=== PATIENT | female | born 1975 | race Caucasian/White ===

== ENCOUNTER 2017-07-19 15:19 | Observation (INO) ==
[2017-07-19] MEDS ORDERED: Naloxone 0.4 MG/ML INJ IVP PRN (20:12)
[2017-07-19] MEDS ORDERED: Acetaminophen 325 MG TABLET PO PRN (20:12)
[2017-07-19] MEDS ORDERED: Fluticasone Propionate Nasal 50 MCG/SPRAY BOTTLE NS PRN (20:18)
[2017-07-19] MEDS ORDERED: Loratadine 10 MG TABLET PO PRN (20:18)
--- NOTE | 2017-07-19 20:28 | Internal Med History&Physical ---
Date of Encounter: 07/19/17 Time of Encounter: 19:45 Internal Medicine - H&P: HPI Chief complaint: syncope; acute renal failure Admitted From: Hospital to Hospital Transfer Plans for Post Hospital Care: Home History of present illness: Ms. Curiel is a 42 year old female who presents in transfer from [facility] ER after having sustained a syncopal event while at [facility] today. She was found to have evidence of acute renal failure and UTI. Given her presentation and acute renal failure, she was transferred to [facility] for ongoing care. Upon my assessment of the patient, she is lying in bed comfortably. She states that she was feeling weak and lightheaded and dizzy this morning in [facility]. She decided to leave [facility]aptism early given her symptoms, but when she stood up from the pew/chair she became lightheaded and dizzy and passed out and was unconscious for a few seconds on the [facility] floor. She was brought to the ER and was noted to be hypotensive with a blood pressure of 98/61. She states she was feeling diaphoretic, weak, dizzy, and clammy. She had been having a GI virus earlier in the week with protracted nausea and vomiting and very little oral intake. She denies any diarrhea. She also suffers from chronic hypertension and has had some blood pressure medication changes recently. Her baseline creatinine is normal but it is now 2.71. She also had evidence of UTI and her urine sample. She denied any dysuria, hematuria, or urinary urgency or frequency, however. Nonetheless, she will be treated for UTI and for acute renal failure. She feels well now, but she still feels quite weak. She has no nausea or vomiting at the present time. She denies any fevers, chills, or night sweats. She also tells me she suffers from essential thrombocytosis and takes hydroxyurea and aspirin for her platelet excess. She has never suffered any kind of stroke, heart attack, or any end organ damage from her thrombocytosis. Past Med Surg Social Fam HX - Past Medical History Attestation: Yes The following information was validated with the patient. Source: patient, old records reviewed Medical history: GERD, hypertension, thyroid disease, other (essential thrombocytosis) Psychiatric history: depression - Past Surgical History Surgical History: appendectomy, thyroidectomy (partial) - Social History Smoking Status: Never smoker Smokeless Tobacco Status: No Alcohol use: rarely Drug use: none Current living situation: Home, With Family Activity Level: Independent ambulation Recent Out of Country Travel Within the Last 8 Weeks: No - Family History Mother Adopted: No Family Member Ethnicity: Non- Living Status: Still Living Hx Family Cardiac Disorders: Yes (htn) Hx Family Neurologic Disorders: Yes (TIA) Father Living Status: Still Living Hx Family Cardiac Disorders: Yes (htn, cva) Hx Family Neuromuscular Disorders: Yes (TIA) Internal Medicine - H&P: Meds Aspirin [Lo-Dose Aspirin EC] 81 mg PO DAILY 07/19/17 [History] Carvedilol [Coreg] 25 mg PO BID 07/19/17 [History] Cetirizine HCl [All Day Allergy] 10 mg PO DAILY PRN 07/19/17 [History] Fluticasone Propionate Nasal [Flonase] 2 spr NS DAILY PRN 07/19/17 [History] Hydralazine HCl 100 mg PO TID 07/19/17 [History] Hydroxyurea [Hydrea] 500 mg PO DAILY 07/19/17 [History] Lisinopril/Hydrochlorothiazide [Zestoretic 20-12.5 mg Tablet] 1 tab PO BID 07/19 [History] Omeprazole [PriLOSEC] 20 mg PO DAILY 07/19/17 [History] cloNIDine HCl [Clonidine HCl] 0.1 mg PO TID 07/19/17 [History] 3 Allergy/AdvReac Type Severity Reaction Status Date / Time No Known Allergies Allergy Verified 07/19/17 17:19 - Constitutional Constitutional: no chills, no fever(s), no night sweats - EENT Eyes: no blurry vision, no change in vision Ears: no ear pain, no tinnitus Nose, mouth and throat: no nasal congestion, no sinus pressure, no sore throat - Cardiovascular Cardiovascular ROS IM: diaphoresis, lightheadedness, syncope, no chest pain, no dyspnea, no dyspnea on exertion, no irregular heart rhythm, no palpitations, no paroxysmal nocturnal dyspnea - Respiratory Respiratory: no cough, no dyspnea, no hemoptysis, no dyspnea on exertion, no chest congestion, no excessive phlegm production, no change in phlegm color - Gastrointestinal Gastrointestinal: nausea, vomiting, no abdominal pain, no diarrhea, no hematemesis, no hematochezia, no melena - Genitourinary Genitourinary: no dysuria, no flank pain, no hematuria - Musculoskeletal Musculoskeletal ROS IM: no arthralgias, no back pain - Integumentary Integumentary IM: no rash, no jaundice - Neurological Neurological ROS: dizziness, no convulsions, no focal weakness, no frequent falls, no headache(s), no vertigo, no weakness - Psychiatric Psychiatric: no anxiety, no depression - Endocrine Endocrine IM: no polydipsia, no polyuria - Hematologic/Lymphatic Hematologic/Lymphatic: no easy bruising, no lymphadenopathy - Allergic/Immunologic Allergic/Immunologic: no wheezing, no GI upset with certain foods - Constitutional Vitals: Temp Pulse Resp BP Pulse Ox 98.1 F 81 16 143/82 100 07/19/17 17:04 07/19/17 17:04 07/19/17 17:04 07/19/17 17:04 07/19/17 17:08 General appearance: Present: cooperative, A&O X 3, pleasant, no acute distress, answers questions appropriately - Head Head exam: Present: atraumatic, normal inspection - Eye Eye exam: Present: EOMI, normal appearance, PERRL. Absent: scleral icterus Pupils: Present: normal accommodation - ENT ENT exam: Present: mucous membranes dry, normal exam, normal oropharynx - Neck Neck exam general surgery: Present: full ROM, supple. Absent: lymphadenopathy, tenderness, nuchal rigidity, thyromegaly - Respiratory Respiratory exam: Present: CTAB. Absent: chest wall tenderness, rales, respiratory distress, rhonchi, wheezes - Cardiovascular Cardiovascular exam: Present: RRR, +S1, +S2. Absent: diastolic murmur, systolic murmur - GI/Abdominal GI/Abdominal exam: Present: normal bowel sounds, soft. Absent: guarding, hepatomegaly, rebound, splenomegaly, tenderness - Extremities Exam Extremities exam: Present: normal capillary refill, warm, radial pulses palpable and symmetrical. Absent: calf tenderness, pedal edema, tenderness - Back Exam Back exam: Present: normal inspection. Absent: CVA tenderness (L), CVA tenderness (R) - Neurological Exam Neurological exam: Present: alert, CN II-XII intact, oriented X3, no focal deficits, strengths equal and symetr throughout - Psychiatric Psychiatric exam: Present: normal affect, normal mood - Skin Skin exam: Present: dry, warm. Absent: rash Internal Med - H&P Results - Labs Labs: I reviewed the records from [facility] and include the following: WBC 12.4 Hemoglobin 11.1 HCT 11.1 Platelets 692 Sodium 136 Potassium 4.3 Chloride 105 Carbon dioxide 22 BUN 56 Creatinine 2.71 Glucose 115 Troponin less than 0.03 Urinalysis suggestive of UTI EKG: I am unable to find one and unsure if one was even done. - Diagnostic Studies Chest x-ray Status: image reviewed by me (negative) CT scan - head Additional comments: Report reviewed -- negative - Assessment and plan (1) Syncope Current Visit: Yes Status: Acute Assessment and plan: 1. Suspect volume depletion (gastroenteritis) and medication (BP med changes recently) as etiology. 2. Will hold BP meds and use PRN as needed. 3. Hydrate with IVF. 4. Will order EKG, ECHO, and Carotid Dopplers. 5. Monitor on telemetry. Qualifiers: Syncope type: unspecified Qualified Code(s): R55 - Syncope and collapse (2) Acute kidney failure Current Visit: Yes Status: Acute Assessment and plan: 1. Hold BP meds. 2. IVF hydration. 3. Renal ultrasound. 4. Consult nephrology -- discussed with Dr. Barnes. 5. Monitor I/O and renal function. Qualifiers: Acute renal failure type: unspecified Qualified Code(s): N17.9 - Acute kidney failure, unspecified (3) Thrombocytosis Current Visit: Yes Status: Chronic Assessment and plan: 1. Continue Hydrea and ASA per home dosing. 2. Monitor platelets. (4) UTI (urinary tract infection) Current Visit: Yes Status: Acute Assessment and plan: 1. Will treat with IV Rocephin. 2. Follow urine culture obtained at [facility]. Qualifiers: Urinary tract infection type: acute cystitis Hematuria presence: without hematuria Qualified Code(s): N30.00 - Acute cystitis without hematuria (5) DVT prophylaxis Current Visit: No Status: Acute Assessment and plan: 1. Heparin SQ.
[2017-07-19] MEDS: cefTRIAXone 1,000 MG in Water for inj. (sterile) 20 ML 10 ML IVP SCH (23:14)
[2017-07-19] MEDS: *HR* Heparin 5,000 UNIT/ML VIAL SQ SCH (23:15)
[2017-07-19] MEDS: 0.9 % Sodium Chloride 1,000 ML IVC SCH (23:16)
[2017-07-20 03:21] LABS: Basophils % 0.5 %; Eosinophils % 1.7 %; Hematocrit 30.6 % (35.3-44.9); Hemoglobin 10.1 g/dL (11.5-15.4); Immature Granulocytes % 0.1 % (0-4); Mean Corpuscular Volume 96.8 fL (83.0-100.0); Mean Platelet Volume 10.2 fL (9.4-12.4); Monocytes % 7.5 %; Platelet Count 556 K/mcL (140-400); Red Blood Count 3.16 M/mcL (3.82-4.97); Red Cell Distribution Width 15.9 % (11.5-14.5); Segmented Neutrophils % 60.2 %
[2017-07-20 03:22] LABS: Eosinophils # 0.1 K/mcL (0.0-0.6); Lymphocytes # 2.2 K/mcL (0.6-4.6); Monocytes # 0.6 K/mcL (0.0-1.3); Neutrophils # 4.5 K/mcL (1.6-8.9)
[2017-07-20 03:24] LABS: INR 1.1; Prothrombin Time 11.5 Seconds (9.4-12.1)
[2017-07-20 03:27] LABS: Activated Partial Thrombo Time 30.5 Seconds (26.0-36.0)
[2017-07-20 03:42] LABS: Albumin 3.7 g/dL (3.5-5.7); Albumin/Globulin Ratio 1.3 (1.1-2.2); Bilirubin,Total 0.3 mg/dL (0.3-1.0); Calcium 8.6 mg/dL (8.6-10.3); Chol/HDL Ratio 6.5 (0-4.9); Globulin 2.8 g/dL (2.4-3.5); Potassium 3.9 mEq/L (3.5-5.1); Total Protein 6.5 g/dL (6.4-8.9)
[2017-07-20] MEDS: *HR* Heparin 5,000 UNIT/ML VIAL SQ SCH ×3 (05:26→21:44)
--- NOTE | 2017-07-20 07:34 | Internal Med Progress Note ---
Date of Encounter: 07/20/17 Time of Encounter: 07:30 - Assessment and plan (1) Syncope Current Visit: Yes Status: Acute Assessment and plan: Likely 2/2 to dehydration and polypharmacy. Hold BP meds.Give IV fluids. F/U 2D echo and carotid dopplers Qualifiers: Syncope type: unspecified Qualified Code(s): R55 - Syncope and collapse (2) DVT prophylaxis Current Visit: No Status: Acute Assessment and plan: 1. Heparin SQ. (3) Thrombocytosis Current Visit: Yes Status: Chronic Assessment and plan: 1. Continue Hydrea and ASA per home dosing. 2. Monitor platelets. (4) Acute kidney failure Current Visit: Yes Status: Acute Assessment and plan: Continue IV fluid hydration. f/U renal ultrasound. Nephrology recs appreciated Qualifiers: Acute renal failure type: unspecified Qualified Code(s): N17.9 - Acute kidney failure, unspecified (5) UTI (urinary tract infection) Current Visit: Yes Status: Acute Assessment and plan: 1. Will treat with IV Rocephin. 2. Follow urine culture obtained at [facility]. Qualifiers: Urinary tract infection type: acute cystitis Hematuria presence: without hematuria Qualified Code(s): N30.00 - Acute cystitis without hematuria - Time Spent With Patient Total time spent is greater than 50% in coordination of care (as documented) at patient's floor/unit and/or counseling patient: - Subjective Interval history: No acute events overnight - Constitutional Vitals: Temp Pulse Resp BP Pulse Ox 98.4 F 77 16 129/85 100 07/20/17 06:59 07/20/17 06:59 07/20/17 06:59 07/20/17 06:59 07/20/17 06:59 General appearance: Present: cooperative, A&O X 3, pleasant, no acute distress, answers questions appropriately - Head Head exam: Present: atraumatic, normocephalic - Eye Eye exam: Present: PERRL, conjuntiva pink, sclera anicteric Pupils: Present: PERRL - Neck Neck exam general surgery: Present: supple, trachea midline. Absent: lymphadenopathy - Respiratory Respiratory exam: Present: CTAB. Absent: accessory muscle use, rales, rhonchi, wheezes - Cardiovascular Cardiovascular exam: Present: RRR, +S1, +S2. Absent: diastolic murmur, gallop, rubs, systolic murmur - GI/Abdominal GI/Abdominal exam: Present: normal bowel sounds, soft, no peritoneal signs. Absent: distended, tenderness - Extremities Exam Extremities exam: Present: warm, radial pulses palpable and symmetrical. Absent : calf tenderness, cyanotic, pedal edema - Neurological Exam Neurological exam: Present: CN II-XII intact, oriented X3, no focal deficits. Absent: pronater drift, facial droop, speech deficit - Skin Skin exam: Present: dry, intact Internal Medicine: Result - Labs CBC & Chem 7: 07/20/17 03:05 07/20/17 03:05 Labs: Short CBC 07/20/17 Range/Units 03:05 WBC 7.5 (4.3-11.1) K/mcL Hgb 10.1 L (11.5-15.4) g/dL Hct 30.6 L (35.3-44.9) % Plt Count 556 H (140-400) K/mcL Neutrophils # 4.5 (1.6-8.9) K/mcL BMP 07/20/17 03:05 Sodium 138 Potassium 3.9 Chloride 110 H Carbon Dioxide 22 L BUN 34 H Creatinine 1.65 H Glucose 128 H Calcium 8.6 Liver Function 07/20/17 Range/Units 03:05 Total Bilirubin 0.3 (0.3-1.0) mg/dL AST 11 L (13-39) Units/L ALT 11 (7-52) Units/L Alkaline Phosphatase 40 (34-104) Units/L Albumin 3.7 (3.5-5.7) g/dL - ABG Interpretation ABG results: PT/INR, D-dimer PT 11.5 Seconds (9.4-12.1) 07/20/17 03:05 Consult Discharge Plan - Plan Referrals: Cinthya Deleon, ATMOSPHERIC SCIENCES PROFESSOR [Primary Care Provider] -
[2017-07-20] MEDS: 0.9 % Sodium Chloride 1,000 ML IVC SCH (07:37)
[2017-07-20] MEDS: Aspirin Enteric Coated 81 MG Tablet PO SCH (07:38)
[2017-07-20] MEDS: Hydroxyurea 500 MG CAPSULE PO SCH (07:38)
[2017-07-20] MEDS: cefTRIAXone 1,000 MG in Water for inj. (sterile) 20 ML 10 ML IVP SCH (07:39)
--- NOTE | 2017-07-20 11:21 | Nephrology Consult Note ---
Date of Encounter: 07/20/17 Time of Encounter: 11:19 Assessment and Plan (1) Acute kidney failure Current Visit: Yes Status: Acute Patient with LALI that is secondary to hypotension from dehydration and possible overcontrol of her blood pressure. Her renal function is significantly improved with holding antihypertensive medications and hydration. I anticipate recovery of her renal function. Ok to resume some of her antihypertensive medications as her SBP is greater than 150. Avoid other nephrotoxins. If patient is discharged please get a renal function panel in 5-7 days. Patient needs to follow-up with Dr. Broussard as previously scheduled or per the direction of primary care. Qualifiers: Acute renal failure type: unspecified Qualified Code(s): N17.9 - Acute kidney failure, unspecified (2) Syncope Current Visit: Yes Status: Acute Secondary to volume depletion that occurred at the same time her antihypertensive medication was adjusted. Qualifiers: Syncope type: unspecified Qualified Code(s): R55 - Syncope and collapse (3) UTI (urinary tract infection) Current Visit: Yes Status: Acute Antibiotics per primary team. Qualifiers: Urinary tract infection type: acute cystitis Hematuria presence: without hematuria Qualified Code(s): N30.00 - Acute cystitis without hematuria (4) Thrombocytosis Current Visit: Yes Status: Chronic Outpatient management. History of Present Illness - Reason for Consult Consult date: 07/20/17 Acute Kidney Injury - Chief Complaint lali - History of Present Illness Ms. Curiel is a 42 yo woman with a history of hypertension who presents after a syncopal episode and was found to have acute kidney injury. The patient is followed by Dr. Broussard with [facility]. The patient reports that she has been in her usual state of health with the exception of about 1 week history of decreased oral intake along with nausea, but no diarrhea. She recently had her antihypertensive regimen adjusted secondary to elevated blood pressures. The patient [facility] and [facility] she noticed that she was lightheaded and dizzy. She also experienced some weakness while she was there. Upon attempting to stand she blacked out and the next thing she remembers was coming to on the floor with a lot of people around her. In the hospital she was found to have acute kidney injury and so [facility] was consulted to assist with evaluation and management. At the time my evaluation the patient is feeling better, she denies chest pain, shortness of breath, dizziness, or any other problems. Past Med Surg Social Fam HX - Past Medical History Medical history: GERD, hypertension, thyroid disease, other (essential thrombocytosis) Psychiatric history: depression - Past Surgical History Surgical History: appendectomy, thyroidectomy (partial) - Social History Smoking Status: Never smoker Smokeless Tobacco Status: No Alcohol use: rarely Drug use: none - Family History Mother Adopted: No Family Member Ethnicity: Non- Living Status: Still Living Hx Family Cardiac Disorders: Yes (htn) Hx Family Neurologic Disorders: Yes (TIA) Father Living Status: Still Living Hx Family Cardiac Disorders: Yes (htn, cva) Hx Family Neuromuscular Disorders: Yes (TIA) Medications and Allergies Aspirin [Lo-Dose Aspirin EC] 81 mg PO DAILY 07/19/17 [History] Carvedilol [Coreg] 25 mg PO BID 07/19/17 [History] Cetirizine HCl [All Day Allergy] 10 mg PO DAILY PRN 07/19/17 [History] Fluticasone Propionate Nasal [Flonase] 2 spr NS DAILY PRN 07/19/17 [History] Hydralazine HCl 100 mg PO TID 07/19/17 [History] Hydroxyurea [Hydrea] 500 mg PO DAILY 07/19/17 [History] Lisinopril/Hydrochlorothiazide [Zestoretic 20-12.5 mg Tablet] 1 tab PO BID 07/19 [History] Omeprazole [PriLOSEC] 20 mg PO DAILY 07/19/17 [History] cloNIDine HCl [Clonidine HCl] 0.1 mg PO TID 07/19/17 [History] 3 Allergy/AdvReac Type Severity Reaction Status Date / Time No Known Allergies Allergy Verified 07/19/17 17:19 Review of Systems All Systems: reviewed and no additional remarkable complaints except as stated ( As documented in the history of present illness.) Exam - Vital Signs Vital signs: Initial Vital Signs Temp Pulse Resp BP Pulse Ox 98.1 F 81 16 143/82 100 07/19/17 17:04 07/19/17 17:04 07/19/17 17:04 07/19/17 17:04 07/19/17 17:04 Vital Signs - Last 8 Hours Temp Pulse Resp BP Pulse Ox 07/20/17 10:36 98.0 F 74 16 161/106 99 07/20/17 07:49 100 05/14/18 06:59 98.4 F 77 16 129/85 100 07/20/17 05:04 98.1 F 77 17 136/93 100 Intake and Output 07/19/17 07/20/17 07/20/17 23:59 07:59 15:59 Intake Total 950 / 950 120 / 120 Balance 950 / 950 120 / 120 Intake: IV Fluids 950 / 950 0.9 % Sodium Chloride 1,000 ML 950 / 950 @ 125 mls/hr IVC .Q8H EDMUND Rx#: [id number] Rocephin 1,000 MG In Water for inj. (sterile) 10 ML @ 600 mls/ hr IVP DAILY EDMUND Rx#:[id number] Oral 120 / 120 Other: Meal turkey sandwich with higuera and mustard, chocolate ice cream, sprite venita lemon [place] Breakfast Percent of Meal Consumed 80% # Voids 0 1 # Bowel Movements 0 Weight 86 kg 86.1 kg Patient Weight 07/20/17 23:59 Weight 86.1 kg - General Appearance General appearance: well-developed, well-nourished, obese EENT: ATNC Neck: supple Respiratory: clear Cardiology: no edema, regular rate, regular rhythm Gastrointestinal: no tenderness Integumentary: warm and dry Neurologic: alert and oriented x3 Musculoskeletal: no cyanosis Psychiatric: mood/affect appropriate Results - Lab Results 07/20/17 03:05 07/20/17 03:05 Most recent lab results Calcium 8.6 mg/dL (8.6-10.3) 07/20/17 03:05 Magnesium 2.0 mg/dL (1.6-2.6) 07/20/17 03:05 Consult Discharge Plan - Plan Referrals: Cinthya Deleon, QUALITY PROCESS ENGINEER [Primary Care Provider] -
[2017-07-20] MEDS: Lisinopril-HCTZ 20-12.5mg TABLET PO SCH ×2 (11:43→20:09)
[2017-07-20] MEDS: Ondansetron ODT 4 MG TAB.RAPDIS SL PRN (13:11)
[2017-07-20 14:24] LABS: Protein/Creatinine Ratio,Urine 0.67 mg/mg (0.00-0.20)
[2017-07-21] MEDS: Ondansetron ODT 4 MG TAB.RAPDIS SL PRN ×2 (04:29→15:36)
[2017-07-21 04:58] LABS: Basophils # 0.1 K/mcL (0.0-0.2); Basophils % 0.6 %; Eosinophils # 0.1 K/mcL (0.0-0.6); Eosinophils % 1.4 %; Hematocrit 35.8 % (35.3-44.9); Immature Granulocytes % 0.3 % (0-4); Lymphocytes # 2.6 K/mcL (0.6-4.6); Lymphocytes % 33.4 %; Mean Corpuscular HGB Conc 33.5 g/dL (31.6-35.5); Mean Corpuscular Hemoglobin 31.7 pg (28.0-33.3); Mean Corpuscular Volume 94.7 fL (83.0-100.0); Mean Platelet Volume 10.2 fL (9.4-12.4); Monocytes # 0.5 K/mcL (0.0-1.3); Monocytes % 6.2 %; Neutrophils # 4.5 K/mcL (1.6-8.9); Nucleated Red Blood Cells 0.3 /100 WBC (0); Platelet Count 668 K/mcL (140-400); Red Blood Count 3.78 M/mcL (3.82-4.97); Red Cell Distribution Width 15.3 % (11.5-14.5); Segmented Neutrophils % 58.1 %
[2017-07-21 05:19] LABS: Calcium 9.4 mg/dL (8.6-10.3); Potassium 3.8 mEq/L (3.5-5.1)
[2017-07-21] MEDS: *HR* Heparin 5,000 UNIT/ML VIAL SQ SCH ×2 (05:30→14:12)
[2017-07-21] MEDS: Hydroxyurea 500 MG CAPSULE PO SCH (07:53)
[2017-07-21] MEDS: cefTRIAXone 1,000 MG in Water for inj. (sterile) 20 ML 10 ML IVP SCH (07:54)
[2017-07-21] MEDS: Lisinopril-HCTZ 20-12.5mg TABLET PO SCH (07:54)
[2017-07-21] MEDS: Aspirin Enteric Coated 81 MG Tablet PO SCH (07:54)
[2017-07-21] MEDS ORDERED: amLODIPine 5 MG TABLET PO SCH (09:30)
--- NOTE | 2017-07-21 09:43 | Internal Med Progress Note ---
Date of Encounter: 07/21/17 Time of Encounter: 09:40 - Assessment and plan (1) HTN (hypertension) Current Visit: No Status: Chronic Assessment and plan: Was on lisinopril/HCTZ, coreg and clonidine at home. Have restarted lisinopril ad HCTZ. want to avoid clonidine so will start amlodipine. Will hold off on coreg at this time Qualifiers: Hypertension type: essential hypertension Qualified Code(s): I10 - Essential (primary) hypertension (2) Syncope Current Visit: Yes Status: Acute Assessment and plan: Likely 2/2 to dehydration and polypharmacy. Hold BP meds.Give IV fluids. Echo came back with mild diastolic dysfunction, otherwise WNL Qualifiers: Syncope type: unspecified Qualified Code(s): R55 - Syncope and collapse (3) DVT prophylaxis Current Visit: No Status: Acute Assessment and plan: 1. Heparin SQ. (4) Thrombocytosis Current Visit: Yes Status: Chronic Assessment and plan: 1. Continue Hydrea and ASA per home dosing. 2. Monitor platelets. (5) Acute kidney failure Current Visit: Yes Status: Acute Assessment and plan: Continue IV fluid hydration. f/U renal ultrasound. Nephrology recs appreciated Qualifiers: Acute renal failure type: unspecified Qualified Code(s): N17.9 - Acute kidney failure, unspecified (6) UTI (urinary tract infection) Current Visit: Yes Status: Acute Assessment and plan: 1. Will treat with IV Rocephin. 2. Follow urine culture obtained at [facility]. Qualifiers: Urinary tract infection type: acute cystitis Hematuria presence: without hematuria Qualified Code(s): N30.00 - Acute cystitis without hematuria - Time Spent With Patient Total time spent is greater than 50% in coordination of care (as documented) at patient's floor/unit and/or counseling patient: - Subjective Interval history: No acute events overnight - Constitutional Vitals: Temp Pulse Resp BP Pulse Ox 99.0 F 85 18 145/104 99 07/21/17 07:14 07/21/17 07:14 07/21/17 07:14 07/21/17 07:14 07/21/17 07:14 General appearance: Present: cooperative, A&O X 3, pleasant, no acute distress, answers questions appropriately - Head Head exam: Present: atraumatic, normocephalic - Eye Eye exam: Present: PERRL, conjuntiva pink, sclera anicteric Pupils: Present: PERRL - Neck Neck exam general surgery: Present: supple, trachea midline. Absent: lymphadenopathy - Respiratory Respiratory exam: Present: CTAB. Absent: accessory muscle use, rales, rhonchi, wheezes - Cardiovascular Cardiovascular exam: Present: RRR, +S1, +S2. Absent: diastolic murmur, gallop, rubs, systolic murmur - GI/Abdominal GI/Abdominal exam: Present: normal bowel sounds, soft, no peritoneal signs. Absent: distended, tenderness - Extremities Exam Extremities exam: Present: warm, radial pulses palpable and symmetrical. Absent : calf tenderness, cyanotic, pedal edema - Neurological Exam Neurological exam: Present: CN II-XII intact, oriented X3, no focal deficits. Absent: pronater drift, facial droop, speech deficit - Skin Skin exam: Present: dry, intact Internal Medicine: Result - Labs CBC & Chem 7: 07/21/17 04:09 07/21/17 04:09 Labs: Short CBC 07/21/17 Range/Units 04:09 WBC 7.7 (4.3-11.1) K/mcL Hgb 12.0 D (11.5-15.4) g/dL Hct 35.8 (35.3-44.9) % Plt Count 668 H (140-400) K/mcL Neutrophils # 4.5 (1.6-8.9) K/mcL BMP 07/21/17 04:09 Sodium 136 Potassium 3.8 Chloride 102 Carbon Dioxide 23 BUN 23 H Creatinine 1.20 Glucose 103 Calcium 9.4 - ABG Interpretation ABG results: PT/INR, D-dimer PT 11.5 Seconds (9.4-12.1) 07/20/17 03:05 - Impressions Impressions Chest X-Ray 07/20/17 07:28 IMPRESSION: No acute process. D/ / Darryn Ball MD / Darryn Ball MD Interpreting Provider: Darryn Ball MD Retroperitoneum Ultrasound 07/20/17 17:00 IMPRESSION: Right renal atrophy, similar to prior exam. No hydronephrosis. Unremarkable urinary bladder. D/ / Zeferino Ross / Zeferino Ross Interpreting Provider: Zeferino Ross Echocardiogram 07/20/17 20:12 Impressions: LVEF 65%. Normal LV chamber size, wall thickness and function. Mild left ventricular diastolic dysfunction. Normal right ventricular structure and function. No evidence of a PFO with agitated saline contrast. No evidence of pulmonary hypertension. No significant valvular dysfunction. Left Ventricular Wall Motion: Rest Echo Findings All wall segments showed normal motion. Findings: Study Quality * Technically adequate exam. ECG Findings * Normal sinus rhythm. Left Ventricle * LVEF 65%. * Normal LV chamber size, wall thickness and function. * Mild left ventricular diastolic dysfunction. Right Ventricle * Normal right ventricular structure and function. Left Atrium * Mildly dilated left atrium. Right Atrium * Normal right atrial size. Interatrial Septum * No evidence of a PFO with agitated saline contrast. Aortic Valve * Trileaflet aortic valve with normal function. * No aortic stenosis. * Trace aortic regurgitation. Mitral Valve * Normal mitral valve structure and function. * No mitral regurgitation. * No mitral stenosis. Tricuspid Valve * Normal tricuspid valve structure and function. * Trace tricuspid regurgitation. * No evidence of pulmonary hypertension. Pulmonic Valve * Normal pulmonic valve structure and function. * No pulmonic regurgitation. Aorta * Normally sized aortic root. Pericardium * The pericardium appears normal. IVC * Normal IVC dimensions and inspiratory collapse. Pulmonary Artery * Normal visualized portions of the main pulmonary artery. Consult Discharge Plan - Plan Instructions: Acute Kidney Injury (GEN), Syncope (DC) Referrals: Cinthya Deleon CNP [Primary Care Provider] - 07/28/17 1:00 pm Prescriptions: amLODIPine [Norvasc] 5 mg PO DAILY #30 tablet
--- NOTE | 2017-07-21 10:49 | Nephrology Progress Note ---
Date of Encounter: 07/21/17 Time of Encounter: 10:45 - Assessment and Plan (1) Acute kidney failure Current Visit: Yes Status: Acute Prerenal azotemia and likely some ATN. Renal function improving with hydration and improved blood pressure. Patient with aggressive control of her hypertension superimposed on decreased oral intake. Agree with slow titration of antihypertensive medications. I recommend the patient check her BP twice daily until she follows up with her PCP. She should contact her PCP if her SBP is >160 or less than 100. F/U with Dr. Broussard as previously scheduled. Qualifiers: Acute renal failure type: unspecified Qualified Code(s): N17.9 - Acute kidney failure, unspecified (2) Syncope Current Visit: Yes Status: Acute Qualifiers: Syncope type: unspecified Qualified Code(s): R55 - Syncope and collapse (3) UTI (urinary tract infection) Current Visit: Yes Status: Acute Antibiotics per primary team. Qualifiers: Urinary tract infection type: acute cystitis Hematuria presence: without hematuria Qualified Code(s): N30.00 - Acute cystitis without hematuria (4) Thrombocytosis Current Visit: Yes Status: Chronic Subjective Principal diagnosis: LALI Interval history: Patient seen. She has no new complaint. Anticipating discharge today. Objective - Vital Signs Vital signs: Vital Signs Temp Pulse Resp BP Pulse Ox 07/21/17 07:14 99.0 F 85 18 145/104 99 07/21/17 03:59 98.0 F 90 17 134/84 99 07/21/17 00:09 180/118 07/20/17 23:10 98.1 F 83 17 150/113 99 07/20/17 19:33 98.2 F 77 17 139/95 98 07/20/17 16:00 97.6 F 89 16 164/93 100 Intake and Output 07/20/17 07/21/17 07/21/17 23:59 07:59 15:59 Intake Total 120 / 120 Output Total 850 / 850 550 / 550 Balance -730 / -730 -550 / -550 Intake: Oral 120 / 120 Output: Urine 850 / 850 550 / 550 Other: Meal Colbyphilip acntu Percent of Meal Consumed 80% - General Appearance General appearance: Present: well-developed, well-nourished EENT: Present: ATNC Cardiology: Present: regular rate Integumentary: Present: warm and dry Neurologic: Present: alert and oriented x3 Psychiatric: Present: mood/affect appropriate - Lab 07/21/17 04:09 07/21/17 04:09 Most recent lab results Calcium 9.4 mg/dL (8.6-10.3) 07/21/17 04:09 Magnesium 2.0 mg/dL (1.6-2.6) 07/20/17 03:05 Urine Creatinine 27 mg/dL 07/20/17 13:35 Urine Total Protein 18 mg/dL (1-14) H 07/20/17 13:35 Consult Discharge Plan - Plan Referrals: Cinthya Deleon, ELECTRO MECH[employer]ICAL TECHNOLOGIST [Primary Care Provider] -
--- NOTE | 2017-07-21 14:04 | Discharge Summary ---
- NOTES TO OUTPATIENT PROVIDER Notes to Outpatient Provider: Please measure bP twice daily and follow up with within a week of discharge Orders not resulted at time of discharge: Pending orders 07/22/17 04:00 Basic Metabolic Panel AM 0400 CBC [Complete Blood Count] [HEME] AM 04007/23/17 04:00 Basic Metabolic Panel AM 0400 CBC [Complete Blood Count] [HEME] AM 04007/24/17 04:00 Basic Metabolic Panel AM 0400 CBC [Complete Blood Count] [HEME] AM 04007/25/17 04:00 Basic Metabolic Panel AM 0400 CBC [Complete Blood Count] [HEME] AM 0400 07/26/17 04:00 Basic Metabolic Panel AM 0400 CBC [Complete Blood Count] [HEME] AM 0400 Date of Encounter: 07/21/17 Time of Encounter: 14:00 - Discharge Diagnosis (1) HTN (hypertension) Priority: Primary Status: Chronic Assessment and Plan: 42 year old female admitted for syncopal episode., found to be hypotensive on admission. Was assessed with syncope likley 2/2 to dehydration and polypharmacy with multiple antihypertensives. Was on lisinopril/HCTZ, coreg, hydralazine and clonidine at home. Have restarted lisinopril ad HCTZ. We also added amlodipine to her regimen. Coreg, hydralazine and clondine were discontinued on discharge. Advised to measure her BP twice daily and follow up with her PCP Qualifiers: Hypertension type: essential hypertension Qualified Code(s): I10 - Essential (primary) hypertension (2) Syncope Priority: Secondary Status: Acute Assessment and Plan: Likely 2/2 to dehydration and polypharmacy. Hold BP meds.Give IV fluids. Echo came back with mild diastolic dysfunction, otherwise WNL Qualifiers: Syncope type: unspecified Qualified Code(s): R55 - Syncope and collapse (3) DVT prophylaxis Priority: Secondary Status: Acute Assessment and Plan: 1. Heparin SQ. (4) Thrombocytosis Priority: Secondary Status: Chronic Assessment and Plan: 1. Continue Hydrea and ASA per home dosing. 2. Monitor platelets. (5) Acute kidney failure Priority: Secondary Status: Acute Assessment and Plan: Continue IV fluid hydration. f/U renal ultrasound. Nephrology recs appreciated Qualifiers: Acute renal failure type: unspecified Qualified Code(s): N17.9 - Acute kidney failure, unspecified (6) UTI (urinary tract infection) Priority: Secondary Status: Acute Assessment and Plan: 1. Will treat with IV Rocephin. 2. Follow urine culture obtained at [place]. Qualifiers: Urinary tract infection type: acute cystitis Hematuria presence: without hematuria Qualified Code(s): N30.00 - Acute cystitis without hematuria Hospital course: Ms. Curiel is a 42 year old female - Time Spent with Patient Total time spent providing and/or coordinating discharge services: - Discharge Medications Prescriptions: amLODIPine [Norvasc] 5 mg PO DAILY #30 tablet Home Medications: Aspirin [Lo-Dose Aspirin EC] 81 mg PO DAILY 07/19/17 [History] Cetirizine HCl [All Day Allergy] 10 mg PO DAILY PRN 07/19/17 [History] Fluticasone Propionate Nasal [Flonase] 2 spr NS DAILY PRN 07/19/17 [History] Hydroxyurea [Hydrea] 500 mg PO DAILY 07/19/17 [History] Lisinopril/Hydrochlorothiazide [Zestoretic 20-12.5 mg Tablet] 1 tab PO BID 07/19 [History] Omeprazole [PriLOSEC] 20 mg PO DAILY 07/19/17 [History] amLODIPine [Norvasc] 5 mg PO DAILY #30 tablet 07/21/17 [Rx] Allergies/Adverse Reactions: 3 Allergy/AdvReac Type Severity Reaction Status Date / Time No Known Allergies Allergy Verified 07/19/17 17:19 Date of admission: 07/19/17 16:38 Primary care physician: Cinthya Deleon CNP Consults: 07/19/17 20:17 Consult to Physician [CONS] Routine Consulting Provider: Solis Barnes Reason for Consult: acute renal failure Time Notified: 20:18 Call Completed: Yes - Constitutional Vitals: Temp Pulse Resp BP Pulse Ox 99.2 F 98 20 128/90 98 07/21/17 11:13 07/21/17 11:13 07/21/17 11:13 07/21/17 11:13 07/21/17 11:13 General appearance: Present: cooperative, A&O X 3, pleasant, no acute distress, answers questions appropriately - Head Head exam: Present: atraumatic, normocephalic - Eye Eye exam: Present: PERRL, conjuntiva pink, sclera anicteric Pupils: Present: PERRL - Neck Neck exam general surgery: Present: supple, trachea midline. Absent: lymphadenopathy - Respiratory Respiratory exam: Present: CTAB. Absent: accessory muscle use, rales, rhonchi, wheezes - Cardiovascular Cardiovascular exam: Present: RRR, +S1, +S2. Absent: diastolic murmur, gallop, rubs, systolic murmur - GI/Abdominal GI/Abdominal exam: Present: normal bowel sounds, soft, no peritoneal signs. Absent: distended, tenderness - Extremities Exam Extremities exam: Present: warm, radial pulses palpable and symmetrical. Absent : calf tenderness, cyanotic, pedal edema - Neurological Exam Neurological exam: Present: CN II-XII intact, oriented X3, no focal deficits. Absent: pronater drift, facial droop, speech deficit - Skin Skin exam: Present: dry, intact - Patient Status Disposition: Home, Self-Care Condition: Good - Discharge Instructions Instructions: Acute Kidney Injury (GEN), Syncope (DC) Follow Up With: Cinthya Deleon CNP [Primary Care Provider] - 07/28/17 1:00 pm
[2017-07-21 15:22] VITALS: BP 140/99
== END 2017-07-21 17:20 | disposition home or self-care (01) ==
LOC: INTOOBSV 16:38 → 2ANU 16:38
PROVIDERS: ADMIT Hospitalist; ATTEND Hospitalist

== ENCOUNTER 2017-11-01 14:44 | Observation (INO) ==
[2017-11-01] MEDS ORDERED: Naloxone 0.4 MG/ML INJ IVP PRN (17:27)
--- NOTE | 2017-11-01 17:41 | Internal Med History&Physical ---
Date of Encounter: 11/01/17 Time of Encounter: 17:40 Internal Medicine - H&P: HPI Chief complaint: Nausea History of present illness: Ms. Curiel is a 42 year old female who was transferred from [facility] where she was seen for nausea and cold for 2 days. Because of acute renal failure she was transferred to [facility] as a direct admission. Patient has a past medical history of essential thrombocytosis, GERD and hypertension. Patient was related to the abortive week ago. Since one week she has been feeling cold. For past 2 days she has been having nausea and vomiting. She also noticed decreased frequency of urination for past 2 days. About 1-2 times a day. Before she went to [facility] she had about 1- 2 episodes of vomiting today. She had about 3-4 episodes of vomiting for past 2 days. Denies any family member having similar nausea or vomiting. He denies any fevers but admits to some chills. No sick contacts. No recent travel or antibiotic use. Notably patient was admitted about 2 months ago for hypotension due to polypharmacy with antihypertensives and had LALI. 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 Her lisinopril and hydrochlorothiazide was held at the time. She denies any abdominal pain back pain or burning urination. She denies any constipation or diarrhea. She has a mild cough denies any shortness of breath. Denies any runny nose or sore throat. She denies taking any new medication or supplements. She does complain of some palpitation, but denies any syncope or lightheadedness. Patient will received about 1.5 L of fluid at [facility], and was sent to [facility]. Past Med Surg Social Fam HX - Past Medical History Medical history: GERD, hypertension, renal disease, thyroid disease, other Additional medical history: kidney failure, Essential thrombocytosis Psychiatric history: depression - Past Surgical History Surgical History: appendectomy, thyroidectomy Additional surgical history: NECK TUMOR REMOVED (NON CANCEROUS). TUBAL LIGATION - Social History Smoking Status: Never smoker Smokeless Tobacco Status: No Alcohol use: rarely Drug use: none Occupational status: unemployed - Family History Mother Adopted: No Family Member Ethnicity: Non- Living Status: Still Living Hx Family Cardiac Disorders: Yes (htn) Hx Family Neurologic Disorders: No Father Living Status: Still Living Hx Family Cardiac Disorders: Yes (htn, cva) Hx Family Neuromuscular Disorders: Yes (TIA) Internal Medicine - H&P: Meds Aspirin [Lo-Dose Aspirin EC] 81 mg PO DAILY 07/19/17 [History] Cetirizine HCl [All Day Allergy] 10 mg PO DAILY PRN 07/19/17 [History] Fluticasone Propionate Nasal [Flonase] 2 spr NS DAILY PRN 07/19/17 [History] Omeprazole [PriLOSEC] 20 mg PO DAILY 07/19/17 [History] Hydroxyurea [Hydrea] 500 mg PO DAILY #30 capsule 09/30/17 [Rx] Ferrous Sulfate [Iron] 325 mg PO BID #60 tablet 10/01/17 [Rx] hydrALAZINE [HydrALAZINE] 10 mg PO DAILY 11/01/17 [History] 3 Allergy/AdvReac Type Severity Reaction Status Date / Time No Known Allergies Allergy Verified 07/19/17 17:19 All Systems PM: A 10-system review of systems was performed and is negative for pertinent findings except as documented above in the HPI. - Constitutional Vitals: Temp Pulse Resp BP Pulse Ox 97.8 F 99 16 131/77 100 11/01/17 16:07 11/01/17 16:07 11/01/17 16:07 11/01/17 16:07 11/01/17 16:07 General appearance: Present: A&O X 3, pleasant Exam: Const: Vital signs listed above. no acute distress. Alert and oriented Xs 3. No mood disorders noted, calm affect. Mild shivering shivering Eyes: Sclera white, conjunctiva clear, lids are without lag. PERRLA. Pupils and irises are equal and round without defect. ENT: TMs intact and clear, normal canals, grossly normal hearing. Oropharanx clear and moist without erythema. Lymph/Neck: No masses, thyromegaly, or abnormal cervical notes. No bruit. Tracheal midline. No JVD Cardio: RRR, Normal S1, S2 , systolic flow murmur heard at left upper sternal border, no rubs or gallops. Skin warm and dry. No peripheral edema. Respiratory: Chest symmetrical, respirations non-labored. No dullness or flatness. Clear bilaterally to auscultation, non-tender to palpitation. Musculo: No deformity or scoliosis noted. No barney gait disturbance noted. No cyanosis or edema. Pulses normal in all 4 extremities. No atrophy or abnormal movements. Appropriate muscle strength bilaterally. Neurologic: No focal deficits, cranial nerves II-XII grossly intact with normal sensation, reflexes, coordination, muscle strength and tone. GI/Abdomen: Soft, non tender, non distended, no hepatosplemomegaly, normal bowel sounds, no masses noted. Internal Med - H&P Results - Labs Labs: Labs done in August from the hospital reviewed including CBC, chemistry and urinalysis - Assessment and plan (1) LALI (acute kidney injury) Current Visit: No Status: Acute Assessment and plan: - Likely from nausea and vomiting on baseline CKD, possibly due to viral gastroenteritis. Creatinine 2.31 about a week ago when her lisinopril and hydrochlorothiazide was stopped. Creatinine was 0.8 in April before her previous episodes of a LALI. - We will do a patient's IV fluids normal saline at about 1 80 mL an hour. - Monitor I/O - Avoid nephrotoxic medication - Retroperitoneal ultrasound in July showed right renal atrophy, no hydronephrosis - Monitor labs - Measure post void residual. We will consider Suggs if more than 100 mL of urinary retention. - We will consult nephrology tomorrow if no significant improvement. (2) Abnormal urinalysis Current Visit: Yes Status: Acute Assessment and plan: Urine analysis with elevated white count, leukocyte esterase. However has elevated squamous epithelial cells and no symptom of lower urinary tract infection - He does not have an elevated white count, back pain and lower abdominal pain. No burning urination. - We will repeat UA, and hold antibiotics for now. - We will reconsider antibiotics based on repeat UA (3) HTN (hypertension) Current Visit: No Status: Chronic Assessment and plan: History of hypertension treated with hydralazine - given the possibility of hypovolemia from vomiting will hold hydralazine in view of her LALI. - We will monitor for now Qualifiers: Hypertension type: essential hypertension Qualified Code(s): I10 - Essential (primary) hypertension (4) GERD (gastroesophageal reflux disease) Current Visit: No Status: Acute Assessment and plan: We will give omeprazole if needed Qualifiers: Qualified Code(s): K21.9 - Gastro-esophageal reflux disease without esophagitis (5) DVT prophylaxis Current Visit: No Status: Acute Assessment and plan: Heparin subcutaneous (6) Metabolic acidosis, normal anion gap (NAG) Current Visit: No Status: Resolved Assessment and plan: - Likely from ARF - We will hold bicarbonate for now (7) Anemia Current Visit: No Status: Acute Assessment and plan: - Macrocytic - Likely related to her essential thrombocythemia and CKD - Is at baseline. No signs of active bleeding - We will monitor for now Qualifiers: Anemia type: unspecified type Qualified Code(s): D64.9 - Anemia, unspecified (8) Thrombocytosis Current Visit: No Status: Chronic Assessment and plan: Will continue patient's hydroxyurea (9) Atrophy of right kidney Current Visit: No Status: Acute - Time Spent With Patient Total time spent is greater than 50% in coordination of care (as documented) at patient's floor/unit and/or counseling patient:
[2017-11-01] MEDS: 0.9 % Sodium Chloride 1,000 ML IVC SCH ×2 (18:14→23:39)
[2017-11-01 21:26] LABS: Bilirubin,Urine Negative (Negative); Blood,Urine Negative (Negative); Clarity,Urine Cloudy (Clear); Color,Urine Yellow (Yellow); Glucose,Urine (UA) 100 mg/dL (Normal); Ketones,Urine Negative (Negative); Leukocyte Esterase,Urine Moderate (Negative); Nitrite,Urine Negative (Negative); Protein,Urine 30 mg/dL (Neg-Trace); Specific Gravity,Urine 1.016 (1.010-1.025); Urobilinogen,Urine Normal (Normal)
[2017-11-01 21:28] LABS: Bacteria,Urine None Seen per hpf (None-Few); Hyaline Casts,Urine None Seen per lpf (None-Few); Squamous Epithelial Cell,Urine Many per lpf (None-Few); WBC,Urine 15-30 per hpf (0-3)
[2017-11-01 21:37] LABS: RBC,Urine 0-3 per hpf (0-3)
[2017-11-02] MEDS: 0.9 % Sodium Chloride 1,000 ML IVC SCH (05:09)
[2017-11-02 06:37] LABS: Albumin 3.3 g/dL (3.5-5.7); Albumin/Globulin Ratio 1.3 (1.1-2.2); Bilirubin,Total 0.5 mg/dL (0.3-1.0); Calcium 8.5 mg/dL (8.6-10.3); Globulin 2.5 g/dL (2.4-3.5); Potassium 4.4 mEq/L (3.5-5.1); Total Protein 5.8 g/dL (6.4-8.9)
--- NOTE | 2017-11-02 11:40 | Internal Med Progress Note ---
Hospitalist Progress Note - Encounter Date of Encounter: 11/02/17 Time of Encounter: 11:36 - Subjective Interval History: Patient seen and examined this morning. Feeling much better. Denies any nausea or vomiting. Is having good urine output. Is ambulating well. - Exam Vitals: Temp Pulse Resp BP Pulse Ox 98.7 F 78 16 142/92 100 11/02/17 11:01 11/02/17 11:01 11/02/17 11:01 11/02/17 11:01 11/02/17 11:01 Exam: Const: Vital signs listed above. no acute distress. Alert and oriented Xs 3. No mood disorders noted, calm affect. Eyes: Sclera white, conjunctiva clear, lids are without lag. PERRLA. Pupils and irises are equal and round without defect. ENT: TMs intact and clear, normal canals, grossly normal hearing. Oropharanx clear and moist without erythema. Lymph/Neck: No masses, thyromegaly, or abnormal cervical notes. No bruit. Tracheal midline. No JVD Cardio: RRR, Normal S1, S2 , systolic flow murmur heard at left upper sternal border, no rubs or gallops. Skin warm and dry. No peripheral edema. Respiratory: Chest symmetrical, respirations non-labored. No dullness or flatness. Clear bilaterally to auscultation, non-tender to palpitation. Musculo: No deformity or scoliosis noted. No barney gait disturbance noted. No cyanosis or edema. Pulses normal in all 4 extremities. No atrophy or abnormal movements. Appropriate muscle strength bilaterally. Neurologic: No focal deficits, cranial nerves II-XII grossly intact with normal sensation, reflexes, coordination, muscle strength and tone. GI/Abdomen: Soft, non tender, non distended, no hepatosplemomegaly, normal bowel sounds, no masses noted. - Assessment and Plan (1) LALI (acute kidney injury) Current Visit: No Status: Acute (2) Abnormal urinalysis Current Visit: Yes Status: Acute (3) HTN (hypertension) Current Visit: No Status: Chronic (4) GERD (gastroesophageal reflux disease) Current Visit: No Status: Acute (5) DVT prophylaxis Current Visit: No Status: Acute (6) Anemia Current Visit: No Status: Acute (7) Thrombocytosis Current Visit: No Status: Chronic (8) Atrophy of right kidney Current Visit: No Status: Acute - Summary of Assessment and Plan Summary of Assessment and Plan: LALI - Likely from nausea and vomiting on baseline CKD, possibly due to viral gastroenteritis. Creatinine 2.31 about a week ago when her lisinopril and hydrochlorothiazide was stopped. Creatinine was 0.8 in April before her previous episodes of a LALI. - Good output after IVF. Now eating well. DC fluids after. - Monitor I/O - Avoid nephrotoxic medication - Retroperitoneal ultrasound in July showed right renal atrophy, no hydronephrosis - Monitor labs - No residual on PVR yesterday. - nephrology recommendation appreciated. Abnormal urinalysis - First UA poor sample - She does not have an elevated white count, back pain and lower abdominal pain. No burning urination. - Repeat UA not done. Will follow. - hold antibiotics for now. HTN - BP stable. Now good urine output - We will resume home hydralazine. GERD - omeprazole if needed Metabolic acidosis, normal anion gap - Likely from ARF - Nephrology recommendation appreciated Anemia - Macrocytic - Likely related to her essential thrombocythemia and CKD - Is at baseline. No signs of active bleeding - We will monitor for now Thrombocytosis - Will continue patient's hydroxyurea DVT prophylaxis - ambulatory, low risk. not indicated - Time Spent with Patient Total time spent is greater than 50% in coordination of care (as documented) at patient's floor/unit and/or counseling patient: Internal Medicine: Result - Labs CBC & Chem 7: 11/02/17 06:04 Labs: BMP 11/02/17 06:04 Sodium 136 Potassium 4.4 Chloride 112 H Carbon Dioxide 19 L BUN 48 H Creatinine 2.38 H Glucose 103 Calcium 8.5 L Liver Function 11/02/17 Range/Units 06:04 Total Bilirubin 0.5 (0.3-1.0) mg/dL AST 11 L (13-39) Units/L ALT 8 (7-52) Units/L Alkaline Phosphatase 39 (34-104) Units/L Albumin 3.3 L (3.5-5.7) g/dL Urine 11/01/17 Range/Units 21:00 Urine Color Yellow (Yellow) Urine Clarity Cloudy A (Clear) Urine pH 6.0 (5.0-8.0) pH Units Ur Specific Felt 1.016 (1.010-1.025) Urine Protein 30 H (Neg-Trace) mg/dL Urine Glucose (UA) 100 H (Normal) mg/dL Consult Discharge Plan - Plan Referrals: Cinthya Deleon CNP [Primary Care Provider] - (3) HTN (hypertension) Qualifiers: Hypertension type: essential hypertension Qualified Code(s): I10 - Essential (primary) hypertension (6) Anemia Qualifiers: Anemia type: unspecified type Qualified Code(s): D64.9 - Anemia, unspecified
--- NOTE | 2017-11-02 11:47 | Nephrology Consult Note ---
Date of Encounter: 11/02/17 Time of Encounter: 11:15 Assessment and Plan (1) LALI (acute kidney injury) Current Visit: Yes Status: Acute Acute kidney injury, improving with fluids Secondary to prerenal causes plus use of RADHA/HCTZ Patient has had severe reaction to these medications in the past Additionally, she has had workup including retroperitoneal ultrasound which showed right renal atrophy AKI and ANCA were negative in the past. Complements were negative in the past. Anti-GBM has been negative in the past Renal artery Doppler ultrasound was also negative in 2014 Still, antiphospholipid remains on the differential as well as fibromuscular dysplasia It is also possible that the use of ACEs alone causes significant problems for her Plan -Check Antiphospholipid antibody -Recheck renal artery Doppler as fibromuscular dysplasia remains on the differential -Renal biopsy tomorrow -Consider calcium channel raheem if hypertension remains uncontrolled -Consider referral to [facility] for atypical HUS workup if negative (2) HTN (hypertension) Current Visit: Yes Status: Acute Acute on chronic hypertension Patient has responded poorly to ACEs and hydrochlorothiazide These medications should be avoided at all costs Calcium channel blockers may be appropriate medication of choice if needed Qualifiers: Hypertension type: essential hypertension Qualified Code(s): I10 - Essential (primary) hypertension (3) Thrombocytosis Current Visit: Yes Status: Chronic Chronic, managed by heme/onc History of Present Illness - Reason for Consult Consult date: 11/01/17 Acute Kidney Injury Requesting physician: Martir Concepcion - Chief Complaint Acute kidney injury - History of Present Illness Ms. Curiel is a 42yo woman with history of essential thrombocythemia and poorly controlled hypertension who has had multiple episodes of acute kidney injury secondary to overcontrol of blood pressure with lisinopril and hydrochlorothiazide who presented to the ED with 2 day history of nausea and vomiting and poor production of urine. The patient was recently seen in the outpatient setting by nephrology for follow-up at which time it was noted that she had elevated serum creatinine on labs were ordered from her senior loss control specialist. At that time she was told to stop her lisinopril and HCTZ, however she was noted to have elevated blood pressure so she was being started on hydralazine slowly. The patient states that she began experiencing nausea and vomiting on Thursday which slowly became worse and she was no longer able to take it anymore and came to the hospital. When she got to the hospital she was found to have a significant LALI with serum creatinine 4.65. The patient's blood pressure medications were stopped and she received fluids at that time which did help to resolve her symptoms. She has no other acute complaints since that time. Significantly, the patient has had difficult time managing her blood pressure in the past. She has been seen by Dr. Blanc multiple times in the past and been worked up for her blood pressure with renal artery duplex in 2014 which was normal as well as screening for AKI/ANCA and other autoimmune disorders. She also was admitted in July 2017 at which time she had a retroperitoneal ultrasound that demonstrated right renal atrophy with no hydronephrosis and no other significant disease. She is having frequent problems with LALI when placed on lisinopril and HCTZ. Past Med Surg Social Fam HX - Past Medical History Medical history: GERD, hypertension, renal disease, thyroid disease, other Additional medical history: kidney failure, Essential thrombocytosis Psychiatric history: depression - Past Surgical History Surgical History: appendectomy, thyroidectomy Additional surgical history: NECK TUMOR REMOVED (NON CANCEROUS). TUBAL LIGATION - Social History Smoking Status: Never smoker Smokeless Tobacco Status: No Alcohol use: rarely Drug use: none - Family History Mother Adopted: No Family Member Ethnicity: Non- Living Status: Still Living Hx Family Cardiac Disorders: Yes (htn) Hx Family Neurologic Disorders: No Father Living Status: Still Living Hx Family Cardiac Disorders: Yes (htn, cva) Hx Family Neuromuscular Disorders: Yes (TIA) Medications and Allergies Aspirin [Lo-Dose Aspirin EC] 81 mg PO DAILY 07/19/17 [History] Cetirizine HCl [All Day Allergy] 10 mg PO DAILY PRN 07/19/17 [History] Fluticasone Propionate Nasal [Flonase] 2 spr NS DAILY PRN 07/19/17 [History] Omeprazole [PriLOSEC] 20 mg PO DAILY PRN 07/19/17 [History] Hydroxyurea [Hydrea] 500 mg PO DAILY #30 capsule 09/30/17 [Rx] Ferrous Sulfate [Iron] 325 mg PO DAILY 11/02/17 [History] Hydralazine HCl [Hydralazine HCl] 100 mg PO BID 11/02/17 [History] 3 Allergy/AdvReac Type Severity Reaction Status Date / Time No Known Allergies Allergy Verified 07/19/17 17:19 Review of Systems Constitutional: no excessive sweating, no fever(s), no weight loss Eyes: bilateral: blurred vision (patient denies) Nose, mouth and throat: no dizziness, no headache(s) Cardiovascular: no chest pain, no palpitations Respiratory: no cough, no dyspnea Gastrointestinal: change in bowel habits, vomiting, no abdominal pain, no coffee ground emesis Genitourinary Female: difficulty urinating, difficulty voiding, no flank pain, no hematuria Musculoskeletal: no muscle weakness, no numbness Psychiatric: no depression, no difficulty concentrating Exam - Vital Signs Vital signs: Initial Vital Signs Temp Pulse Resp BP Pulse Ox 97.8 F 99 16 131/77 100 11/01/17 16:07 11/01/17 16:07 11/01/17 16:07 11/01/17 16:07 11/01/17 16:07 Vital Signs - Last 8 Hours Temp Pulse Resp BP Pulse Ox 11/02/17 11:01 98.7 F 78 16 142/92 100 11/02/17 07:16 97.4 F L 71 16 122/80 100 Intake and Output 11/01/17 11/02/17 11/02/17 23:59 07:59 15:59 Intake Total 1000 / 1000 1360 / 1360 120 / 120 Output Total 470 / 470 700 / 700 375 / 375 Balance 530 / 530 660 / 660 -255 / -255 Intake: IV Fluids 1000 / 1000 1000 / 1000 0.9 % Sodium Chloride 1,000 ML 1000 / 1000 1000 / 1000 @ 180 mls/hr IVC .[id number] EDMUND Rx #:[id number] Oral 360 / 360 120 / 120 Output: Urine 470 / 470 700 / 700 375 / 375 Other: Meal Breakfast Percent of Meal Consumed 75% # Bowel Movements 0 Weight 86.6 kg - General Appearance Exam: Gen: Vitals noted. No acute distress. HEENT: Normocephalic, atraumatic Neck: Supple. No adenopathy. Cardiac: RRR, 2/6 systolic murmur heard best at left upper sternal border, +S1/ S2 Pulmonary: CTA bilaterally, no wheezes, rales or rhonchi, equal chest expansion Abdomen: soft, nontender, BS noted, no guarding Back: Nontender throughout. MSK: ROM intact, no joint swelling noted Extremities: no BLE edema, nontender calf, no cyanosis or clubbing Neuro: A&Ox3, moves all extremities, no focal deficits Psych: Appropriate mood and behavior Results - Lab Results 11/02/17 06:04 Most recent lab results Calcium 8.5 mg/dL (8.6-10.3) L 11/02/17 06:04 Consult Discharge Plan - Plan Referrals: Cinthya Deleon, YASMINE [Primary Care Provider] -
[2017-11-02] MEDS: hydrALAZINE 25 MG TABLET PO SCH ×2 (12:27→20:23)
[2017-11-02] MEDS: Hydroxyurea 500 MG CAPSULE PO SCH (15:07)
[2017-11-02] MEDS ORDERED: Ondansetron 4 MG/2 ML VIAL IVP PRN ×2 (15:54→22:17)
[2017-11-02] MEDS: Acetaminophen 325 MG TABLET PO PRN ×2 (19:44→22:39)
[2017-11-03 06:29] LABS: Basophils % 0.4 %; Eosinophils # 0.1 K/mcL (0.0-0.6); Eosinophils % 1.3 %; Hematocrit 26.9 % (35.3-44.9); Hemoglobin 9.2 g/dL (11.5-15.4); Immature Granulocytes % 0.4 % (0-4); Lymphocytes % 18.6 %; Mean Corpuscular HGB Conc 34.2 g/dL (31.6-35.5); Mean Corpuscular Hemoglobin 35.9 pg (28.0-33.3); Mean Corpuscular Volume 105.1 fL (83.0-100.0); Mean Platelet Volume 9.4 fL (9.4-12.4); Monocytes # 0.3 K/mcL (0.0-1.3); Monocytes % 5.5 %; Neutrophils # 4.1 K/mcL (1.6-8.9); Platelet Count 590 K/mcL (140-400); Red Blood Count 2.56 M/mcL (3.82-4.97); Red Cell Distribution Width 13.9 % (11.5-14.5); Segmented Neutrophils % 73.8 %
[2017-11-03 06:33] LABS: INR 1.1; Prothrombin Time 12.5 Seconds (9.4-12.1)
[2017-11-03 06:46] LABS: Calcium 9.5 mg/dL (8.6-10.3); Potassium 4.1 mEq/L (3.5-5.1)
[2017-11-03] MEDS ORDERED: *HR* Midazolam HCl 2 MG/2 ML VIAL IVP ONE (08:29)
[2017-11-03] MEDS ORDERED: *HR* FentaNYL (PF) 100 MCG/2 ML VIAL IVP ONE (08:29)
[2017-11-03] MEDS ORDERED: 0.9 % Sodium Chloride 500 ML ONE (08:57)
--- NOTE | 2017-11-03 09:22 | Nephrology Progress Note ---
Date of Encounter: 11/03/17 Time of Encounter: 11:20 - Assessment and Plan (1) LALI (acute kidney injury) Current Visit: Yes Status: Acute Acute kidney injury, improved with fluids and cessation of offending medications Secondary to prerenal causes plus use of RADHA/HCTZ Patient has had severe reaction to these medications in the past Additionally, she has had workup including retroperitoneal ultrasound which showed right renal atrophy AKI and ANCA were negative in the past. Complements were negative in the past. Anti-GBM has been negative in the past Renal artery Doppler ultrasound was also negative in 2014 Still, antiphospholipid remains on the differential as well as fibromuscular dysplasia It is also possible that the use of ACEs alone causes significant problems for her Plan -Await results of Antiphospholipid antibody -Recheck renal artery Doppler as fibromuscular dysplasia remains on the differential -Await results of renal biopsy which is sent to [facility] -Consider calcium channel raheem if hypertension remains uncontrolled -Consider referral to [facility] for atypical HUS workup if negative (2) HTN (hypertension) Current Visit: Yes Status: Acute Acute on chronic hypertension Patient has responded poorly to ACEs and hydrochlorothiazide These medications should be avoided at all costs Calcium channel blockers may be appropriate medication of choice if needed Qualifiers: Hypertension type: essential hypertension Qualified Code(s): I10 - Essential (primary) hypertension (3) Thrombocytosis Current Visit: Yes Status: Chronic Chronic, managed by heme/onc Subjective Principal diagnosis: LALI Interval history: The patient is resting comfortably in bed at time of examination status post renal biopsy. She has no acute complaints this morning. Objective - Vital Signs Vital signs: Vital Signs Temp Pulse Resp BP Pulse Ox 11/03/17 09:11 86 18 137/86 100 11/03/17 08:40 86 18 137/86 11/03/17 08:22 97.5 F L 77 16 135/87 99 11/03/17 04:12 98.1 F 73 14 126/78 99 11/02/17 23:50 98.6 F 95 15 130/76 98 11/02/17 19:34 97.6 F 92 15 138/89 99 11/02/17 16:04 98.2 F 94 16 138/81 99 11/02/17 11:01 98.7 F 78 16 142/92 100 Intake and Output 08/27/18 08/28/18 08/28/18 23:59 07:59 15:59 Intake Total 220 / 220 Output Total 750 / 750 300 / 300 Balance -530 / -530 -300 / -300 Intake: Oral 220 / 220 Output: Urine 700 / 700 300 / 300 Emesis 50 / 50 Other: Meal Dinner Percent of Meal Consumed 50% Weight 85.548 kg Blood Glucose* 128 93 - General Appearance Exam: Gen: Vitals noted. No acute distress. HEENT: Normocephalic, atraumatic Neck: Supple. No adenopathy. Cardiac: RRR, 2/6 systolic murmur heard best at left upper sternal border, +S1/ S2 Pulmonary: CTA bilaterally, no wheezes, rales or rhonchi, equal chest expansion Abdomen: soft, nontender, BS noted, no guarding Back: Nontender throughout. There is a Band-Aid in place on the left flank where renal biopsy was performed MSK: ROM intact, no joint swelling noted Extremities: no BLE edema, nontender calf, no cyanosis or clubbing Neuro: A&Ox3, moves all extremities, no focal deficits Psych: Appropriate mood and behavior - Lab 11/03/17 04:00 11/03/17 04:00 Most recent lab results Calcium 9.5 mg/dL (8.6-10.3) 11/03/17 04:00 Consult Discharge Plan - Plan Referrals: Cinthya Deleon CNP [Primary Care Provider] -
[2017-11-03] MEDS: Hydroxyurea 500 MG CAPSULE PO SCH (09:46)
[2017-11-03] MEDS: hydrALAZINE 25 MG TABLET PO SCH ×2 (09:46→21:16)
[2017-11-03] MEDS: Acetaminophen 325 MG TABLET PO PRN (12:34)
--- NOTE | 2017-11-03 18:32 | Internal Med Progress Note ---
Hospitalist Progress Note - Encounter Date of Encounter: 11/03/17 Time of Encounter: 11:00 - Subjective Interval History: Patient with no issues or complaints overnight and renal function continues to improve Patient awaiting results of renal biopsy - Exam Vitals: Temp Pulse Resp BP Pulse Ox 98.1 F 98 16 124/82 99 11/03/17 15:29 11/03/17 15:29 11/03/17 15:29 11/03/17 15:29 11/03/17 15:29 Exam: Gen.: Nonacute distress, alert and oriented 3 ENT: Mucosal membranes moist Respiratory: Lungs are clear to auscultation bilaterally without any wheezing rhonchi or rales Cardiovascular: Normal S1 and S2 regular rate rhythm no murmurs rubs or gallops Abdomen: Soft, nontender and nondistended with positive bowel sounds Extremities: No lower extremity edema Skin: Normal color - Assessment and Plan (1) LALI (acute kidney injury) Current Visit: Yes Status: Acute Assessment and Plan: Renal function improving Nephrology following with recommendations to await results of antiphospholipid antibody in addition to awaiting results of renal biopsy. (2) HTN (hypertension) Current Visit: Yes Status: Acute Assessment and Plan: Blood pressure stable; continue hydralazine (3) GERD (gastroesophageal reflux disease) Current Visit: No Status: Acute Assessment and Plan: Continue PPI (4) Anemia Current Visit: No Status: Acute Assessment and Plan: Stable; continue to monitor (5) Thrombocytosis Current Visit: Yes Status: Chronic Assessment and Plan: Will continue patient's hydroxyurea (6) DVT prophylaxis Current Visit: No Status: Acute Assessment and Plan: Heparin subcutaneous - Time Spent with Patient Total time spent is greater than 50% in coordination of care (as documented) at patient's floor/unit and/or counseling patient: Internal Medicine: Result - Labs CBC & Chem 7: 11/03/17 04:00 11/03/17 04:00 Labs: Short CBC 11/03/17 Range/Units 04:00 WBC 5.5 (4.3-11.1) K/mcL Hgb 9.2 L (11.5-15.4) g/dL Hct 26.9 L (35.3-44.9) % Plt Count 590 H (140-400) K/mcL Neutrophils # 4.1 (1.6-8.9) K/mcL BMP 11/03/17 04:00 Sodium 135 L Potassium 4.1 Chloride 107 Carbon Dioxide 21 L BUN 33 H Creatinine 1.80 H Glucose 103 Calcium 9.5 - ABG Interpretation ABG results: PT/INR, D-dimer PT 12.5 Seconds (9.4-12.1) H 11/03/17 04:00 - Impressions Impressions Renal Biopsy CT 11/03/17 00:00 IMPRESSION: Successful CT guided core biopsy left kidney. D/ / Justice Massey MD / Justice Massey MD Interpreting Provider: Justice Massey MD Consult Discharge Plan - Plan Referrals: Cinthya Deleon, TELLER [Primary Care Provider] - (2) HTN (hypertension) Qualifiers: Hypertension type: essential hypertension Qualified Code(s): I10 - Essential (primary) hypertension (4) Anemia Qualifiers: Anemia type: unspecified type Qualified Code(s): D64.9 - Anemia, unspecified
[2017-11-04 04:58] LABS: Basophils % 0.2 %; Eosinophils # 0.2 K/mcL (0.0-0.6); Eosinophils % 3.6 %; Hematocrit 26.9 % (35.3-44.9); Hemoglobin 9.1 g/dL (11.5-15.4); Immature Granulocytes % 0.2 % (0-4); Lymphocytes % 20.9 %; Mean Corpuscular HGB Conc 33.8 g/dL (31.6-35.5); Mean Corpuscular Hemoglobin 35.5 pg (28.0-33.3); Mean Corpuscular Volume 105.1 fL (83.0-100.0); Mean Platelet Volume 9.6 fL (9.4-12.4); Monocytes # 0.3 K/mcL (0.0-1.3); Monocytes % 5.5 %; Neutrophils # 3.3 K/mcL (1.6-8.9); Platelet Count 569 K/mcL (140-400); Red Blood Count 2.56 M/mcL (3.82-4.97); Red Cell Distribution Width 13.8 % (11.5-14.5); Segmented Neutrophils % 69.6 %
[2017-11-04 05:23] LABS: Calcium 9.1 mg/dL (8.6-10.3); Potassium 4.2 mEq/L (3.5-5.1)
[2017-11-04] MEDS: hydrALAZINE 25 MG TABLET PO SCH (08:06)
[2017-11-04] MEDS: Hydroxyurea 500 MG CAPSULE PO SCH (08:06)
--- NOTE | 2017-11-04 09:28 | Nephrology Progress Note ---
Date of Encounter: 11/04/17 Time of Encounter: 10:00 - Assessment and Plan (1) LALI (acute kidney injury) Current Visit: Yes Status: Acute Acute kidney injury, improved with fluids and cessation of offending medications Secondary to prerenal causes plus use of RADHA/HCTZ Patient has had severe reaction to these medications in the past Renal biopsy showed 10 glomeruli which is typically a poor sample, however was primarily sclerotic demonstrating advanced renal disease but no active immune complex lesions. There is some ATN which could explain the current LALI. The patient did have renal artery Doppler study but only preliminary read is available which shows some high velocity flow on the right Plan Serum creatinine continues to improve on a daily basis. Urine output also improving. -Await results of Antiphospholipid antibody -Awaiting official read of vascular study, not currently candidate for CTA due to LALI -Await results of renal biopsy which is sent to [facility] -Consider calcium channel raheem if hypertension remains uncontrolled -Consider referral to [facility] for atypical HUS workup if negative -Okay with discharge from a nephrology standpoint (2) HTN (hypertension) Current Visit: Yes Status: Acute Acute on chronic hypertension Patient has responded poorly to ACEs and hydrochlorothiazide These medications should be avoided at all costs Calcium channel blockers may be appropriate medication of choice if needed Patient's blood pressure is been well controlled during her stay Qualifiers: Hypertension type: essential hypertension Qualified Code(s): I10 - Essential (primary) hypertension (3) Thrombocytosis Current Visit: Yes Status: Chronic Chronic, managed by heme/onc Subjective Principal diagnosis: LALI Interval history: The patient is resting comfortably in bed at time of examination. Overall she says that she is feeling typically very good. She has had no problems with urination overnight, and she has no acute complaints today. Objective - Vital Signs Vital signs: Vital Signs Temp Pulse Resp BP Pulse Ox 11/04/17 07:15 97.6 F 98 19 131/82 98 11/04/17 03:46 98 F 76 14 137/83 100 11/03/17 23:51 98.1 F 91 15 137/79 100 11/03/17 19:35 98 F 91 15 112/52 98 11/03/17 15:29 98.1 F 98 16 124/82 99 11/03/17 11:41 98.0 F 84 16 116/75 100 Intake and Output 11/03/17 11/04/1711/04/18 23:59 07:59 15:59 Intake Total 240 / 240 120 / 120 Output Total 100 / 100 Balance 140 / 140 120 / 120 Intake: Oral 240 / 240 120 / 120 Output: Urine 100 / 100 Other: Meal CEREAL AND JUICE # Voids 1 2 Weight 86.273 kg Blood Glucose* 114 117 - General Appearance Exam: Gen: Vitals noted. No acute distress. HEENT: Normocephalic, atraumatic Neck: Supple. No adenopathy. Cardiac: RRR, 2/6 systolic murmur heard best at left upper sternal border, +S1/ S2 Pulmonary: CTA bilaterally, no wheezes, rales or rhonchi, equal chest expansion Abdomen: soft, nontender, BS noted, no guarding Back: Nontender throughout. MSK: ROM intact, no joint swelling noted Extremities: no BLE edema, nontender calf, no cyanosis or clubbing Neuro: A&Ox3, moves all extremities, no focal deficits Psych: Appropriate mood and behavior - Lab 11/04/17 04:17 11/04/17 04:17 Most recent lab results Calcium 9.1 mg/dL (8.6-10.3) 11/04/17 04:17 Consult Discharge Plan - Plan Referrals: Cinthya Deleon CNP [Primary Care Provider] -
[2017-11-04 11:23] VITALS: BP 141/75
--- NOTE | 2017-11-04 13:19 | Discharge Summary ---
- NOTES TO OUTPATIENT PROVIDER Notes to Outpatient Provider: Follow up with nephrology Orders not resulted at time of discharge: Pending orders 11/03/17 04:00 Antiphospholipid Ab High Spec AM 0400 Date of Encounter: 11/04/17 Time of Encounter: 11:00 - Discharge Diagnosis (1) LALI (acute kidney injury) Priority: Primary Status: Acute (2) HTN (hypertension) Priority: Secondary Status: Acute Qualifiers: Hypertension type: essential hypertension Qualified Code(s): I10 - Essential (primary) hypertension (3) GERD (gastroesophageal reflux disease) Priority: Secondary Status: Acute Qualifiers: Esophagitis presence: esophagitis presence not specified Qualified Code(s) : K21.9 - Gastro-esophageal reflux disease without esophagitis (4) Anemia Priority: Secondary Status: Acute Qualifiers: Anemia type: unspecified type Qualified Code(s): D64.9 - Anemia, unspecified (5) Thrombocytosis Priority: Secondary Status: Chronic Hospital course: Patient is a 42-year-old female who was transferred from [facility] where she was seen for nausea and cold for 2 days. Because of acute renal failure she was transferred to [facility] as a direct admission. During patients hospital stay nephrology was consulted with recommendations for renal biopsy which showed extensive glomerular sclerosis. Recommendations for patient be discharged to follow-up with nephrology. Patient is to discontinue yu inhibitor and hydrochlorothiazide and will be discharged on hydralazine for blood pressure control. - Time Spent with Patient Total time spent providing and/or coordinating discharge services: Less than 30 minutes - Discharge Medications Home Medications: Aspirin [Lo-Dose Aspirin EC] 81 mg PO DAILY 07/19/17 [History] Cetirizine HCl [All Day Allergy] 10 mg PO DAILY PRN 07/19/17 [History] Fluticasone Propionate Nasal [Flonase] 2 spr NS DAILY PRN 07/19/17 [History] Omeprazole [PriLOSEC] 20 mg PO DAILY PRN 07/19/17 [History] Hydroxyurea [Hydrea] 500 mg PO DAILY #30 capsule 09/30/17 [Rx] Ferrous Sulfate [Iron] 325 mg PO DAILY 11/02/17 [History] Hydralazine HCl 100 mg PO BID 11/02/17 [History] Acetaminophen [Tylenol] 325 mg PO Q4HR PRN tablet 11/04/17 [Rx] Allergies/Adverse Reactions: 3 Allergy/AdvReac Type Severity Reaction Status Date / Time hydrochlorothiazide AdvReac See Verified 11/04/17 10:39 Comments lisinopril AdvReac See Verified 11/04/17 10:39 Comments Date of admission: 11/01/17 15:57 Primary care physician: Cinthya Deleon CNP Consults: 11/01/17 16:27 Consult to Nutrition [CONS] Routine Comment: Consulting Provider: NUTRITION Reason for Dietary Consult: MST Score 11/01/17 18:45 Consult to Nephrology [CONS] Routine Consulting Provider: Kidney Karthaus/ORINOHEMI/ZACHERY/HAMMAD Reason for Consult: Creat 4.65. Call Completed: Yes 11/02/17 22:04 Consult to Interventional Radiology [CONS] Routine Consulting Provider: Radiology Interventional Cols Reason for Consult: Please evaluate for Renal biopsy on Thursday for frequent unexplained AKIs. Call Completed: No - Constitutional Vitals: Temp Pulse Resp BP Pulse Ox 98.3 F 91 19 141/75 100 11/04/17 11:22 11/04/17 11:22 11/04/17 11:22 11/04/17 11:22 11/04/17 11:22 General appearance: Present: A&O X 3, pleasant Exam: As below - Cardiovascular Cardiovascular exam: Present: RRR, +S1, +S2. Absent: diastolic murmur, gallop, rubs, systolic murmur - Patient Status Disposition: Home, Self-Care - Discharge Instructions Follow Up With: Cinthya Deleon CNP [Primary Care Provider] - 11/10/17 8:00 am (Please follow up as schedule...)
[2017-11-04] MEDS: Acetaminophen 325 MG TABLET PO PRN (13:48)
[2017-11-20 10:24] LABS: Antiphospholipid IgG High Spec 13 GPL (0-14); Antiphospholipid IgM High Spec 14 MPL (0-14)
== END 2017-11-04 16:33 | disposition home or self-care (01) ==
LOC: SUATTDRO 15:57 → INTOOBSV 15:57 → 2ANU 15:57
PROVIDERS: ADMIT Internal Medicine; ATTEND Hospitalist

== ENCOUNTER 2018-08-25 20:23 | Inpatient (IN) ==
[2018-08-25] MEDS ORDERED: Naloxone 0.4 MG/ML INJ IVP PRN (23:17)
[2018-08-25] MEDS ORDERED: 0.9 % Sodium Chloride 1,000 ML IVC SCH (23:30)
[2018-08-26] MEDS ORDERED: Fluticasone Propionate Nasal 50 MCG/SPRAY BOTTLE NS PRN (01:11)
[2018-08-26 03:12] LABS: Basophils % 0.3 %; Hematocrit 33.4 % (35.3-44.9); Hemoglobin 10.9 g/dL (11.5-15.4); Immature Granulocytes % 0.3 % (0-4); Lymphocytes # 0.7 K/mcL (0.6-4.6); Lymphocytes % 6.4 %; Mean Corpuscular HGB Conc 32.6 g/dL (31.6-35.5); Mean Corpuscular Hemoglobin 30.6 pg (28.0-33.3); Mean Corpuscular Volume 93.8 fL (83.0-100.0); Mean Platelet Volume 9.5 fL (9.4-12.4); Monocytes # 0.3 K/mcL (0.0-1.3); Monocytes % 2.8 %; Neutrophils # 9.8 K/mcL (1.6-8.9); Platelet Count 672 K/mcL (140-400); Red Blood Count 3.56 M/mcL (3.82-4.97); Red Cell Distribution Width 16.1 % (11.5-14.5); Segmented Neutrophils % 90.2 %; White Blood Count 10.9 K/mcL (4.3-11.1)
[2018-08-26 03:20] LABS: INR 1.1; Prothrombin Time 12.4 Seconds (9.4-12.1)
[2018-08-26 03:35] LABS: Alanine Aminotransferase 11 Units/L (7-52); Albumin/Globulin Ratio 1.5 (1.1-2.2); Alkaline Phosphatase 46 Units/L (34-104); Aspartate Amino Transferase 13 Units/L (13-39); BUN/Creatinine Ratio 16 (6-26); Bilirubin,Total 0.5 mg/dL (0.3-1.0); Blood Urea Nitrogen 17 mg/dL (6-20); Calcium 8.9 mg/dL (8.6-10.3); Carbon Dioxide 21 mEq/L (23-29); Chloride 107 mEq/L (98-107); Globulin 2.6 g/dL (2.4-3.5); Glucose 121 mg/dL (70-105); Magnesium 2.2 mg/dL (1.6-2.6); Osmolality,Calculated 289 (280-300); Potassium 3.6 mEq/L (3.5-5.1); Sodium 138 mEq/L (136-145); Total Protein 6.6 g/dL (6.4-8.9); eGFR For African Americans > 60 (> 60); eGFR For Non-African Americans 58 (> 60)
--- NOTE | 2018-08-26 03:38 | Internal Med History&Physical ---
Date of Encounter: 08/26/18 Time of Encounter: 03:38 Internal Medicine - H&P: HPI Chief complaint: Near syncope History of present illness: Ms. Curiel is a 43 year old female with a past medical history of essential thrombocythemia, renal artery stenosis, hypertension and GERD who initially presented to [facility] after a near syncopal episode. Patient states she was in her usual state of health today. She awoke and took her normal blood pressure medications. Patient had lunch with family members at a restaurant. She states that towards the end of the meal, she stood up from the table and suddenly felt dizzy and lightheaded as if she was going to pass out. She immediately sat back down, became nauseous, diaphoretic and began vomiting. Symptoms do not improve and patient decided to come into the ED. Patient has had several episodes where she felt lightheaded and even passed out secondary to labile with the renal artery stenosis. Denies any history of blood clots. Patient is currently on a baby aspirin and hydroxyurea for her ET. Patient denied any chest pain but did report some shortness of breath. No prior history of coronary artery disease though does have a family history of heart disease. On arrival to [place] patient was noted to be hypertensive with a blood pressure of 198/98. Laboratory workup was notable for a mild AK I with a creatinine of 1.43. Initial troponin was 0.04. D-dimer was obtained which was 652. EKG at [place] was obtained and there was concern for subtle subcentimeter ST depressions in lead 2 in lateral precordial leads. Case was discussed with cardiology with Dr. Ashley who indicated that she would follow the patient either outpatient or inpatient, but indicated that if the patient has not had a stress test or cardiac evaluation may be reasonable to admit. She would follow her if that occurred. She did discuss the possibility of a painless dissection with the presyncopal episode, however, given patient's LALI CTA was deferred. Patient was given 2 L of fluid boluses, nitroglycerin patch for her hypertension and loading dose of aspirin and was subsequently transferred here for further evaluation. Past Med Surg Social Fam HX - Past Medical History Medical history: GERD, hypertension, renal disease, thyroid disease, other Additional medical history: essential thrombocythemia Psychiatric history: anxiety, depression - Past Surgical History Surgical History: appendectomy, thyroidectomy Additional surgical history: NECK TUMOR REMOVED (NON CANCEROUS). TUBAL LIGATION - Social History Smoking Status: Never smoker Smokeless Tobacco Status: No Alcohol use: none Drug use: none - Family History Mother Adopted: No Family Member Ethnicity: Non- Living Status: Still Living Hx Family Cardiac Disorders: Yes (htn) Hx Family Neurologic Disorders: No Father Living Status: Still Living Hx Family Cardiac Disorders: Yes (htn, cva) Hx Family Neuromuscular Disorders: Yes (TIA) Internal Medicine - H&P: Meds Aspirin [Lo-Dose Aspirin EC] 81 mg PO DAILY 07/19/17 [History] Cetirizine HCl [All Day Allergy] 10 mg PO DAILY PRN 07/19/17 [History] Fluticasone Propionate Nasal [Flonase] 2 spr NS DAILY PRN 07/19/17 [History] Ferrous Sulfate [Iron] 325 mg PO DAILY 11/02/17 [History] Hydralazine HCl 100 mg PO TID 11/02/17 [History] Losartan Potassium [Cozaar] 50 mg PO BID 01/13/18 [History] Hydroxyurea [Hydrea] 500 mg PO DAILY #30 capsule 05/24/18 [Rx] Omeprazole 1 tab DAILY 08/26/18 [History] Spironolactone [Aldactone] 50 mg PO BID 08/26/18 [History] Allergy/AdvReac Type Severity Reaction Status Date / Time hydrochlorothiazide AdvReac See Verified 08/25/18 13:35 Comments lisinopril AdvReac See Verified 08/25/18 13:35 Comments All Systems PM: A 10-system review of systems was performed and is negative for pertinent findings except as documented above in the HPI. - Constitutional Constitutional: no chills, no fever(s), no night sweats - EENT Eyes: no change in vision, no discharge, no pain, no photophobia Ears: no ear discharge, no ear pain, no tinnitus Nose, mouth and throat: no dysphagia, no nasal discharge, no neck pain, no sore throat - Cardiovascular Cardiovascular ROS IM: no chest pain, no diaphoresis, no dyspnea, no lightheadedness, no palpitations, no syncope - Respiratory Respiratory: no cough, no dyspnea, no wheezing, no excessive phlegm production - Gastrointestinal Gastrointestinal: no abdominal pain, no diarrhea, no hematemesis, no hematochezia, no melena, no nausea, no vomiting - Genitourinary Genitourinary: no change in urinary stream, no dysuria, no flank pain, no hematuria - Musculoskeletal Musculoskeletal ROS IM: no numbness, no tingling - Integumentary Integumentary IM: no rash, no unusual bruising - Neurological Neurological ROS: no confusion, no convulsions, no focal weakness, no numbness, no tingling, no tremor(s) - Hematologic/Lymphatic Hematologic/Lymphatic: no easy bruising - Constitutional Vitals: Temp Pulse Resp BP Pulse Ox 97.9 F 83 18 161/74 98 08/26/18 02:50 08/26/18 02:50 08/26/18 02:50 08/26/18 03:28 08/26/18 02:50 Exam: General: Alert and oriented 3 lying in bed in no acute distress Skin:Normal color, no rash, no lesions. HEENT:EOM, pupils equal, round and reactive. Cardiovascular:Normal S1 & S2, no rubs, murmurs or gallops. No JVD. Pulse regular. Lungs:Normal breath sounds, no wheezes or crackles. Abdomen:Soft, non-tender, no rigidity. Extremities:No deformity, no edema or tenderness, no joint swelling or clubbing. Neurological:Normal cognition and motor skills. Pulses:Carotid and radial pulses normal +2. Rest of the physical exam is non contributory Internal Med - H&P Results - Labs CBC & Chem 7: 08/26/18 02:20 08/26/18 02:20 Labs: Short CBC 08/26/18 Range/Units 02:20 WBC 10.9 (4.3-11.1) K/mcL Hgb 10.9 L (11.5-15.4) g/dL Hct 33.4 L (35.3-44.9) % Plt Count 672 H (140-400) K/mcL Neutrophils # 9.8 H (1.6-8.9) K/mcL BMP 08/26/18 02:20 Sodium 138 Potassium 3.6 Chloride 107 Carbon Dioxide 21 L BUN 17 Creatinine 1.04 Glucose 121 H Calcium 8.9 Liver Function 08/26/18 Range/Units 02:20 Total Bilirubin 0.5 (0.3-1.0) mg/dL AST 13 (13-39) Units/L ALT 11 (7-52) Units/L Alkaline Phosphatase 46 (34-104) Units/L Albumin 4.0 (3.5-5.7) g/dL - Assessment and Plan (1) Pre-syncope Current Visit: No Status: Acute Assessment and plan: Patient reporting near syncope episode with symptoms of dizziness, lightheadedness, diaphoresis and vomiting. Occurred shortly after patient arose after a meal. Patient was found to be hypertensive on arrival to [place] with a history of difficult to control blood pressure in the setting of her renal artery stenosis. Found to have a mildly KI and a mildly elevated troponin. EKG showed subtle ST depressions that were signed centimeter in the lateral precordial leads that is questionable as to whether a change from previous EKG. Case was discussed with cardiology and recommended further evaluation. The possibility of a painless dissection was also brought up. He is of patient's acute kidney injury CTA was deferred. Patient was given a loading dose of aspirin and fluids. Repeat labs here show resolution of patient's LALI. EKG was repeated which does not show any of the ST depressions noted on prior EKG. Repeat troponin was normal. Differential includes orthostatic versus vasovagal versus PE in the setting of her PT versus cardiac event versus dissection. -Telemetry -Will obtain echocardiogram and carotid duplex -We will obtain a CTA given resolution of LALI to rule out dissection and PE in t he setting of patient's ET predisposing to blood clots. Continue fluid hydration before and after imaging study. -Consult to cardiology (2) LALI (acute kidney injury) Current Visit: No Status: Acute Assessment and plan: Patient on have a creatinine of 1.4 in the setting of renal artery stenosis. Patient's baseline creatinine is around 8.9. Patient was given 2 L of fluid boluses prior to transfer. Repeat creatinine here was 1.04. Etiology likely prerenal. -We will continue patient on maintenance fluids. -Monitor kidney function -Consider resuming ARB and spironolactone after CTA if kidney function remains stable. -Consider nephrology consult. (3) Abnormal ECG Current Visit: No Status: Acute Assessment and plan: Several subcentimeter ST depressions in leads 2 and lateral precordial leads. Repeat EKG here appears to show resolution. Patient did have a mildly elevated troponin of 0.04. -We will obtain echocardiogram. -Follow up cardiology input (4) Thrombocytosis Current Visit: No Status: Chronic Assessment and plan: History of essential thrombocythemia currently on hydroxyurea therapy. Platelet count 766. -Continue hydroxyurea -Consider oncology consult if clinical picture becomes more complicated. (5) DVT prophylaxis Current Visit: No Status: Acute Assessment and plan: Subcutaneous heparin - Time Spent With Patient Total time spent is greater than 50% in coordination of care (as documented) at patient's floor/unit and/or counseling patient:
[2018-08-26] MEDS ORDERED: Isovue-370 500 ML BOTTLE IVP ONE (05:00)
[2018-08-26] MEDS: Acetaminophen 325 MG TABLET PO PRN (05:10)
--- NOTE | 2018-08-26 08:30 | Cardiology Consult Note ---
Date of Encounter: 08/26/18 Time of Encounter: 08:29 Assessment and Plan (1) Pre-syncope Current Visit: No Status: Acute Echocardiogram performed on 08/25/2018 demonstrated LVEF 60-65%. Mild concentric left ventricular hypertrophy. Moderate left ventricular diastolic dysfunction. Normal right ventricular structure and function. Moderately dilated left atrium. Mild aortic regurgitation. Mild-moderate tricuspid regurgitation. No pulmonary hypertension. (2) HTN (hypertension) Current Visit: No Status: Acute Qualifiers: Hypertension type: unspecified Qualified Code(s): I10 - Essential (primary) hypertension Discussion w patient/family: The assessment and plan as outlined above was discussed with the patient and/or family members who expressed understanding and agreement. All questions were answered. Thank you for involving us in the care of your patient. Please call with any questions. History of Present Illness Consult date: 08/25/18 Requesting physician: Arabella Ace Consult reason: Near syncope, mild ECG changes Chief complaint: Near syncope History of present illness: Ms. Curiel is a 43 year old female Renal artery US 08/05/2018: Right renal artery has a >75% stenosis. Left renal artery has a > 75% stenosis. Vessels appear tortuous. The right kidney size measures 9.1 x 3.7 x 3.3 cm. The left kidney size measures 10.3 x 5.7 x 5.7 cm. Previous cardiac testing: * Carotid doppler exam 07/20/2017: Essentially normal bilateral carotid artery systems. Smooth, heterogeneous, nonstenotic plaque in right bifurcation. * Echocardiogram 07/19/2017: LVEF 65%. Normal LV chamber size, wall thickness and function. Mild left ventricular diastolic dysfunction. Normal right ventricular structure and function. No evidence of a PFO with agitated saline contrast. No evidence of pulmonary hypertension. No significant valvular d ysfunction. Past Med Surg Social Fam HX - Past Medical History Medical history: GERD, hypertension, renal disease, thyroid disease, other Additional medical history: essential thrombocythemia Psychiatric history: anxiety, depression - Past Surgical History Surgical History: appendectomy, thyroidectomy Additional surgical history: NECK TUMOR REMOVED (NON CANCEROUS). TUBAL LIGATION - Social History Smoking Status: Never smoker Smokeless Tobacco Status: No Alcohol use: none Drug use: none - Family History Mother Adopted: No Family Member Ethnicity: Non- Living Status: Still Living Hx Family Cardiac Disorders: Yes (htn) Hx Family Neurologic Disorders: No Father Living Status: Still Living Hx Family Cardiac Disorders: Yes (htn, cva) Hx Family Neuromuscular Disorders: Yes (TIA) Medications and Allergies Aspirin [Lo-Dose Aspirin EC] 81 mg PO DAILY 07/19/17 [History] Cetirizine HCl [All Day Allergy] 10 mg PO DAILY PRN 07/19/17 [History] Fluticasone Propionate Nasal [Flonase] 2 spr NS DAILY PRN 07/19/17 [History] Ferrous Sulfate [Iron] 325 mg PO DAILY 11/02/17 [History] Hydralazine HCl 100 mg PO TID 11/02/17 [History] Losartan Potassium [Cozaar] 50 mg PO BID 01/13/18 [History] Hydroxyurea [Hydrea] 500 mg PO DAILY #30 capsule 05/24/18 [Rx] Omeprazole 1 tab DAILY 08/26/18 [History] Spironolactone [Aldactone] 50 mg PO BID 08/26/18 [History] Allergy/AdvReac Type Severity Reaction Status Date / Time hydrochlorothiazide AdvReac See Verified 08/25/18 13:35 Comments lisinopril AdvReac See Verified 08/25/18 13:35 Comments All Systems Review: The remainder of the systems were reviewed and are negative Physical Examination Vital Signs, Last 4 Hours Temp Pulse Resp BP Pulse Ox 08/26/18 06:49 98.1 F 78 16 144/80 97 Results 08/26/18 02:20 08/26/18 02:20 Lab Results 08/26/18 08/26/18 08/26/18 02:20 02:20 02:20 WBC 10.9 Hgb 10.9 L Hct 33.4 L Plt Count 672 H INR 1.1 APTT 35.0 Sodium 138 Potassium 3.6 Chloride 107 Carbon Dioxide 21 L BUN 17 Creatinine 1.04 Glucose 121 H Calcium 8.9 Magnesium 2.2 Total Bilirubin 0.5 AST 13 ALT 11 Alkaline Phosphatase 46 Troponin I B-Natriuretic Peptide 08/26/18 08/26/18 02:20 02:20 WBC Hgb Hct Plt Count INR APTT Sodium Potassium Chloride Carbon Dioxide BUN Creatinine Glucose Calcium Magnesium Total Bilirubin AST ALT Alkaline Phosphatase Troponin I 0.03 B-Natriuretic Peptide 232 H Consult Discharge Plan - Plan Referrals: Cinthya Deleon, [employer] [Primary Care Provider] -
[2018-08-26] MEDS: Hydroxyurea 500 MG CAPSULE PO SCH (11:25)
[2018-08-26] MEDS: Aspirin Enteric Coated 81 MG Tablet PO SCH (11:25)
[2018-08-26] MEDS: hydrALAZINE 25 MG TABLET PO SCH ×3 (11:25→21:14)
--- NOTE | 2018-08-26 12:01 | Electrocardiograph Report ---
[place] [id number] Test Date: 2018-08-25 Pat Name: Claritza Curiel Department: 2000 Room: 3B37 Gender: F Paginator: : 1975 Requested By: Arabella Ace Order Number: [id number] Reading MD: Bret Israel Measurements Intervals [place] Rate: 90 P: 26 [place]: 168 QRS: -6 QRSD: 85 T: 82 QT: 359 QTc: 407 Interpretive Statements SINUS RHYTHM POSSIBLE LEFT ATRIAL ENLARGEMENT LEFT VENTRICULAR HYPERTROPHY AND ST-T CHANGE POSSIBLE SEPTAL MYOCARDIAL INFARCTION, OF INDETERMINATE AGE Electronically Signed On 08-26-2018 11:59:20 EDT by Bret Israel
[2018-08-26] MEDS: *HR* Heparin 5,000 UNIT/ML VIAL SQ SCH ×2 (13:40→21:14)
--- NOTE | 2018-08-26 13:42 | Internal Med Progress Note ---
Hospitalist Progress Note - Encounter Date of Encounter: 08/26/18 Time of Encounter: 11:20 - Subjective Interval History: Patient was seen and examined at bedside. She denied any chest pain. Patient stated she is feeling better today. She does have fluctuating BP at home associated with LALI, for which she had Renal arterial doppler done by Nephrology 2 weeks ago which showed > 75 % stenosis b/l renal arteries - Exam Vitals: Temp Pulse Resp BP Pulse Ox 98.4 F 80 16 193/92 98 08/26/18 12:14 08/26/18 12:14 08/26/18 12:14 08/26/18 12:14 08/26/18 12:14 Exam: Gen: Alert, awake, Oriented to time,place and person Chest: Diminished breath sounds B/L, No wheezing, No crackles, No rales Heart: S1S2+ RRR No murmurs Abd: Soft, NT, BS +, No organomegaly Ext: No edema, pulses are palpable, No calf tenderness Neuro : No acute focal neuro deficits noticed Skin: No rash. - Assessment and Plan (1) Pre-syncope Current Visit: No Status: Acute Assessment and Plan: Multi factorial she does have mild EKG changes She does have severe vascular path cont ASA and Nitro PRN will repeat EKG today her echocardiogram showed LVEF 60 to 65%, moderate left ventricular diastolic dysfunction no wall motion/septal abnormalities noticed Her carotid doppler showed - Left side Mid ICA has a 60-79% stenosis and Rt side is normal Ordered stress test - as part of ischemic workup (2) Hypertensive urgency Current Visit: Yes Status: Acute Assessment and Plan: Fluctuating BS.. Mostly due to renal arterial stenosis cont Aldactone and Hydralazine started on IV hydralazine PRN (3) Abnormal ECG Current Visit: No Status: Acute Assessment and Plan: serial trop x 3 negative her echocardiogram showed LVEF 60 to 65%, moderate left ventricular diastolic dysfunction no wall motion/septal abnormalities noticed (4) Bilateral renal artery stenosis Current Visit: Yes Status: Acute Assessment and Plan: Reviewed her renal arterial doppler b/l renal arterial stenosis > 75 % Consulted Vascular surgery Talked to Dr. Broussard too avoid ACEI / ARBs (5) LALI (acute kidney injury) Current Visit: No Status: Acute Assessment and Plan: Due to dehydration and b/l Renal arterial stenosis Improved with IV hydration d/c ACEI / ARBS ( avoid them ) (6) DVT prophylaxis Current Visit: No Status: Acute Assessment and Plan: Subcutaneous heparin (7) Thrombocytosis Current Visit: No Status: Chronic Assessment and Plan: History of essential thrombocythemia currently on hydroxyurea therapy. Platelet count 672 today Continue hydroxyurea - Time Spent with Patient Total time spent is greater than 50% in coordination of care (as documented) at patient's floor/unit and/or counseling patient: Internal Medicine: Result - Labs CBC & Chem 7: 08/26/18 02:20 08/26/18 02:20 Labs: Short CBC 08/26/18 Range/Units 02:20 WBC 10.9 (4.3-11.1) K/mcL Hgb 10.9 L (11.5-15.4) g/dL Hct 33.4 L (35.3-44.9) % Plt Count 672 H (140-400) K/mcL Neutrophils # 9.8 H (1.6-8.9) K/mcL BMP 08/26/18 02:20 Sodium 138 Potassium 3.6 Chloride 107 Carbon Dioxide 21 L BUN 17 Creatinine 1.04 Glucose 121 H Calcium 8.9 Cardiac Enzymes 08/26/18 08/26/18 Range/Units 02:20 09:54 Troponin I 0.03 0.03 (< 0.04) ng/mL Liver Function 08/26/18 Range/Units 02:20 Total Bilirubin 0.5 (0.3-1.0) mg/dL AST 13 (13-39) Units/L ALT 11 (7-52) Units/L Alkaline Phosphatase 46 (34-104) Units/L Albumin 4.0 (3.5-5.7) g/dL - ABG Interpretation ABG results: PT/INR, D-dimer PT 12.4 Seconds (9.4-12.1) H 08/26/18 02:20 - Impressions Impressions Echocardiogram 08/26/18 23:23 Impressions: LVEF 60-65%. Mild concentric left ventricular hypertrophy. Moderate left ventricular diastolic dysfunction. Normal right ventricular structure and function. Moderately dilated left atrium. Mild aortic regurgitation. Mild-moderate tricuspid regurgitation. No pulmonary hypertension. Left Ventricular Wall Motion: Rest Echo Findings All wall segments showed normal motion. Findings: Study Quality * Technically adequate exam. ECG Findings * Normal sinus rhythm. Left Ventricle * LVEF 60-65%. * Normal LV chamber size and systolic function. * Mild concentric left ventricular hypertrophy. * Moderate left ventricular diastolic dysfunction. Right Ventricle * Normal right ventricular structure and function. Left Atrium * Moderately dilated left atrium. Right Atrium * Normal right atrial size. Interatrial Septum * Interatrial septum not well evaluated. * No evidence of PFO by color Doppler. Aortic Valve * Trileaflet aortic valve. * No aortic stenosis. * Mild aortic regurgitation. Mitral Valve * Normal mitral valve structure. * No mitral stenosis. * Trace mitral regurgitation. Tricuspid Valve * Normal tricuspid valve structure. * No tricuspid stenosis. * Mild-moderate tricuspid regurgitation. * Estimated RVSP is 35 mmHg. * Estimated RA pressure is 3 mmHg. * No pulmonary hypertension. Pulmonic Valve * Pulmonic valve is not well visualized. * No pulmonic stenosis. * Trace pulmonic regurgitation. Aorta * Normally sized aortic root. Pericardium * The pericardium appears normal. IVC * The IVC is not dilated. * > 50% respiratory change Consult Discharge Plan - Plan Referrals: Cinthya Deleon CNP [Primary Care Provider] -
--- NOTE | 2018-08-26 16:44 | Vascular/Endovasc Consult Note ---
Date of Encounter: 08/26/18 Time of Encounter: 16:35 Assessment and Plan (1) Bilateral renal artery stenosis Status: Chronic The pathophysiology and natural history of renal artery stenosis was discussed with the patient and all questions were answered. The patient has a renal du plex which reveals significant renal artery stenosis. The patient has refractory hypertension. The patient has been scheduled for a renal angiogram with possible intervention tomorrow. The risks, benefits and alternatives were discussed and all questions were answered. She expressed s understanding and wishes to proceed. (2) Renovascular hypertension Status: Acute (3) Anemia Status: Chronic Qualifiers: Anemia type: other cause Other causes of anemia: antineoplastic chemotherapy Qualified Code(s): D64.81 - Anemia due to antineoplastic chemotherapy - History of Present Illness Consult date: 08/26/18 Requesting physician: Giulia Patel Consult reason: Renal artery stenosis Chief complaint: Renal vascular hypertension History of present illness: Ms. Curiel is a 43 year old female with a history of hypertension, chronic kidney disease, thyroid disease and thrombocytopenia reported recurrent syncopal episodes. The patient was admitted to [facility] found have severe hypertension. Despite antihypertensives the patient continues to experience elevated blood pressure. The patient was seen by nephrology. Renal duplex was ordered which revealed significant renal artery stenosis bilaterally. The patient was felt to have renal artery stenosis. Vascular surgery was counseled for further evaluation. The time of consultation the patient is resting comfortably. She denies any fevers or chills. He denies any headaches, dizziness or visual disturbances. She denies any abdominal, flank or back pain. She denies any chest pain or shortness of breath. Past Med Surg Social Fam HX - Past Medical History Medical history: GERD, hypertension, renal disease, thyroid disease, other Additional medical history: essential thrombocythemia Psychiatric history: anxiety, depression - Past Surgical History Surgical History: appendectomy, thyroidectomy Additional surgical history: NECK TUMOR REMOVED (NON CANCEROUS). TUBAL LIGATION - Social History Smoking Status: Never smoker Smokeless Tobacco Status: No Alcohol use: none Drug use: none - Family History Mother Adopted: No Family Member Ethnicity: Non- Living Status: Still Living Hx Family Cardiac Disorders: Yes (htn) Hx Family Neurologic Disorders: No Father Living Status: Still Living Hx Family Cardiac Disorders: Yes (htn, cva) Hx Family Neuromuscular Disorders: Yes (TIA) Medications and Allergies Aspirin [Lo-Dose Aspirin EC] 81 mg PO DAILY 07/19/17 [History] Fluticasone Propionate Nasal [Flonase] 1 spr NS DAILY PRN 07/19/17 [History] Ferrous Sulfate [Iron] 325 mg PO DAILY 11/02/17 [History] Hydralazine HCl 100 mg PO TID 11/02/17 [History] Hydroxyurea [Hydrea] 500 mg PO DAILY #30 capsule 05/24/18 [Rx] Omeprazole 20 mg PO DAILY PRN 08/26/18 [History] Spironolactone [Aldactone] 50 mg PO BID 08/26/18 [History] Cetirizine HCl [Allergy Relief] 10 mg PO DAILY 08/27/18 [History] Calcium Carbonate [Tums] 1,000 mg PO Q4H PRN #0 tab.chew 09/02/18 [Rx] Labetalol [Trandate] 100 mg PO BID #60 tablet 09/02/18 [Rx] Minoxidil 5 mg PO BID #120 tablet 09/02/18 [Rx] Allergy/AdvReac Type Severity Reaction Status Date / Time hydrochlorothiazide AdvReac See Verified 08/25/18 13:35 Comments lisinopril AdvReac See Verified 08/27/18 16:28 Comments All Systems Review: The remainder of the systems were reviewed and are negative - Constitutional Constitutional: no chills, no fatigue - Cardiovascular Cardiovascular: no chest pain at rest, no dyspnea at rest - Gastrointestinal Gastrointestinal: no abdominal pain, no constipation, no diarrhea - Neurological Neurological: syncope Exam Vital Signs, Last 4 Hours Temp Pulse Resp BP Pulse Ox 08/26/18 15:08 98.0 F 83 16 157/81 98 General: Present: Conversant, No Apparent Distress HEENT: Present: Atraumatic, Normocephaly, Pupils equal Neck: Absent: JVD, Lymphadenopathy, Left Carotid bruit, Right Carotid bruit Cardiac: Present: Reg Rate and Rhythm, Normal S1 and S2 Lungs: Present: Normal Breath Sounds, No Wheeze, Rales, Rhonchi Neuro: Present: Alert and responsive, Cranial nerves grossly intact, Motor nerves grossly intact, Sensory nerves grossly intact Abdomen: Present: Soft, Non-tender. Absent: Masses Vascular: Present: Normal capillary refill, Pulse, normal. Absent: Cyanosis, Edema Skin: Absent: No rashes noted on visualized skin Consult Discharge Plan - Plan Instructions: Labetalol (By mouth), Minoxidil (By mouth), Peripheral Vascular Disorders (DC), Chronic Hypertension (DC), Hypertensive Crisis (DC) Referrals: Abad Broussard DO [Partnered Physician] - 09/28/18 3:55 pm (this appointment is in [place], [place]) Abad Faust [Partnered Physician] - (within 1 week to schedule Right nephrectomy Office will call patient at home sent over a web request) Cinthya Deleon CNP [Primary Care Provider] - 09/06/18 12:00 pm (Your appointment for August 31, 2018 1430 today has been cancelled) Prescriptions: Minoxidil 5 mg PO BID #120 tablet Labetalol [Trandate] 100 mg PO BID #60 tablet
[2018-08-26] MEDS: 0.9 % Sodium Chloride 1,000 ML IVC SCH (23:57)
[2018-08-27] MEDS: *HR* Heparin 5,000 UNIT/ML VIAL SQ SCH ×3 (05:07→20:28)
[2018-08-27] MEDS ORDERED: Heparin 1,000 UNITS/500 mL 500 ML ONE (05:24)
[2018-08-27] MEDS ORDERED: 0.9 % Sodium Chloride 1,000 ML ONE (05:24)
[2018-08-27] MEDS ORDERED: *HR* Heparin 10,000 UNIT/10 ML VIAL ONE (05:24)
[2018-08-27] MEDS ORDERED: ISOVUE-250 150 ML INFUS..BTL ONE (05:25)
[2018-08-27] MEDS ORDERED: *HR* Midazolam HCl 2 MG/2 ML VIAL ONE (06:43)
--- NOTE | 2018-08-27 06:45 | Pre-Sedation Evaluation ---
Pre-sedation evaluation - Pre-sedation checklist Date of procedure: 08/27/18 Procedure: Renal angiogram Recent Vitals: Last Vital Signs Temp 98.3 F 08/27/18 03:40 Pulse 82 08/27/18 03:40 Resp 16 08/27/18 03:40 BP 188/108 08/27/18 03:40 Pulse Ox 98 08/27/18 03:40 H&P (including ROS) documented in medical record: Yes Previous reaction to sedatives/anesthetics: No Dietary Status: NPO after Midnight Dentition: No loose teeth or bridges ASA Classification *see protocol: CLASS II-Mild systemic disease Plan of Care: Pt appropriate candidate for procedure/moderate/conscious sedation, Risks/benefits of procedure/sedation discussed w/ patient/family
--- NOTE | 2018-08-27 07:16 | Procedure Note ---
Date of procedure: 08/27/18 Pre-op diagnosis: Renal artery stenosis, renovascular hypertension Post-op diagnosis: same Procedure: abdominal aortogram, left renal artery selective angiogram via 4 yoruba sheath in right common femoral artery. Direct pressure held for hemostasis. Anesthesia: IV sedation (moderate conscious sedation) Surgeon: Geovanny Vitale Was there an assistant executive housekeeper present: No Estimated blood loss (cc): 1 Specimen: None Condition: stable Disposition: floor
--- NOTE | 2018-08-27 07:42 | Invasive Diagnostic Lab Proc ---
Name: Claritza Curiel Date of Study: 08/27/2018 Date: 1975 Ht: 170.0 in Medical Record#: [id number] Age: 43 Wt: 86.5 lb Gender: Female BSA: 1.98 Order #: [id number] BMI: 29.93 Physicians Performing MD: Geovanny Vitale MD Referring MD: Referring MD: Staff Name Position Time In Lex Barone RT (R) Monitor Lex Barone RT (R) Scrub Wicho Ortiz RN Warp Yarn Sorter Indications Renal Artery Stenosis Procedures Performed AORTOGRAPHY, ABDOMINAL S&I Pre-Procedure Checklist Informed consent is complete signed and on chart. H&P is on chart. ID band is on and ID verified with patient. Patient NPO for procedure The procedure was described for the patient and questions were answered. ECG is on chart. Plan of Care Patient will tolerate the procedure without complications. Adequate level of comfort will be maintained. Hemodynamics will remain stable Patient will recover from procedure without complications. Respiratory function will be maintained. Cardiac rhythm will remain stable. Patient temperature will be maintained. Patient and/or family have verbalized understanding of the procedure. Patient Education Chief Complaint/Reason for Test: Renal angiogram Developmental Category: Adult (18-64 years) Learning Barriers: None Education Needs: Procedure Education Method: Verbal Information Taught: Renal angiogram Educational Evaluation: Able to repeat information Intravenous Access Time IV Size Location DC'd Fluid/Drip Rate Units RN Started with 22g 1 " Rt Arm 0.9NaCl Allergies lisinopril hydrochlorothiazide Vital Signs Time BP Systolic BP Diastolic HR O2 Sats ASA 06:28 AM 06:28 AM 06:45 AM 07:00 AM 06:49 AM 222 140 93 98 06:54 AM 204 113 73 99 07:00 AM 194 111 83 98 07:04 AM 200 118 82 97 07:10 AM 202 111 82 99 07:14 AM 202 117 85 98 07:15 AM Procedure Medications Time Medication Dose Units Method Route 06:53 AM Lidocaine 2% 10 ml Subcutaneous 06:46 AM Versed 1 mg Intravenous ASA Classification: CLASS II- Mild systemic disease (i.e. well-controlled diabetes, hypertension, asthma, cigarette smoking) Elan Score Preprocedure Postprocedure Activity 2- Moves 4 extremities sustained head lift Activity 2- Moves 4 extremities sustained head lift Circulation 2- SBP +/= 20 points of pre-anesthetic level Circulation 2- SBP +/= 20 points of pre-anesthetic level Consciousness 2- Awake and alert oriented x 3 Consciousness 2- Awake and alert oriented x 3 O2 Saturation 2- Able to maintain O2 satruation of 92% on room air O2 Saturation 2- Able to maintain O2 satruation of 92% on room air Respiratory 2- Able to deep breathe and cough well Respiratory 2- Able to deep breathe and cough well Total Score 10 Total Score 10 Contrast: Isovue 250- 150ml Contrast Amount: 34 ml Fluoro Dose: 339 mGy Procedure Log Time Note Entered By 06:27 AM Pt arrived to photo lab manager 2 at 06:27 [facility] 06:28 AM Chey Andrade RN Position: Monitor Time in: :27 [facility] 06:28 AM Lex Barone RT (R) Position: Scrub Time in: 06:28 [facility] 06:28 AM Wicho Ortiz RN Position: Warp Yarn Sorter Time in: 06:28 [facility] 06:28 AM Case delayed: No avis 06:28 AM Physician paged/called 06:28 avis 06:28 AM Time: 06:28 Is patient comfortable and pain free?: Yes [facility] 06:28 AM Time: 06:28LOC: 5 = Fully awake and oriented or at pre-proc level [facility] 06:45 AM Time: 06:28LOC: 5 = Fully awake and oriented or at pre-proc level [facility] 06:45 AM Time: 06:28 Is patient comfortable and pain free?: Yes [facility] 06:29 AM Physican responded and notified patient is ready 06:29 avis 06:35 AM Physician arrived 06:35 avis 06:46 AM Meet and greet completed [facility] 06:46 AM Sign in performed according to hospital policy. avis 06:46 AM Procedure start 06:46 [facility] 06:46 AM Hair removed from procedure site in procedure lab using clippers. Bilateral groin prepped with Chloraprep by Chey Andrade RN, then patient was draped. Skin intact. avis 06:47 AM ASA Class CLASS II- Mild systemic disease (i.e. well-controlled diabetes, hypertension, asthma, cigarette smoking) [facility] 06:52 AM Time out perfomed [facility] 06:52 AM Patient charges- Angio tray pack, Pulse Oximetry and ACIST tubing and transducer [facility] 06:54 AM 06:53 10 ml Lidocaine 2% to right groin Subcutaneous Given By Geovanny Vitale MD [facility] 06:54 AM Ultrasound, Sonosite, utilized to obtain vascular access [facility] 06:54 AM Access obtained in the right femoral artery by percutaneous puncture. 4 Fr. 10 cm Terumo Dunlevy sheath placed in right femoral artery [facility] 06:55 AM 0.035 180cm Bentson wire utilized to assist with catheter placement [facility] 06:55 AM 4Fr Omniflush catheter inserted [facility] 06:56 AM Abdominal aorta angiography performed in AP contrast injected 10/20 mls. [facility] 06:58 AM Abdominal aorta angiography performed in AP contrast injected 20/10 mls. [facility] 07:00 AM Time: 06:45 Is patient comfortable and pain free?: Yes [facility] 07:00 AM Time: 06:45LOC: 4 = Oriented but drowsy [facility] 07:00 AM 6mL of contrast hand injected [facility] 07:02 AM 0.035 180cm Benton-angled wire utilized to assist with catheter placement [facility] 07:06 AM wire removed [facility] 07:07 AM Abdominal aorta angiography performed in AP contrast injected 20/10 mls. [facility] 07:07 AM Catheter removed [facility] 07:08 AM Procedure completed at 07:07 [facility] 07:10 AM Sign Out completed: Radiation Dose 338.6 mGy Fluoro Time: 4.6 minutes. Isovue 250- 150ml contrast 34 ml given by Geovanny Vitale MD. Complications: None. Confirmed administered medications:Yes Sedation minutes 25 [facility] 07:10 AM Isovue 250- 150ml,1 bottle(s) used. [facility] 07:10 AM Arterial sheath pulled using manual compression and V+Pad for 20 minutes by Lex Barone RT (R) [facility] 07:10 AM Estimated Blood Loss: minimal [facility] 07:10 AM Post Blood Pressure: 202/111 [facility] 07:11 AM Information taught: Renal angiogram [facility] 07:11 AM Education needs: Procedure, Plan of Care, and Disease Process [facility] 07:11 AM Learning barriers: None [facility] 07:11 AM Education methods: Verbal [facility] 07:11 AM Education evaluation: Able to repeat information [facility] 07:11 AM Patient pain level 0/10 [facility] 07:11 AM Site status No bleeding/hematoma - Rt Groin as reported by Lex Barone RT (R) at 07:11 [facility] 07:11 AM Delay to floor: No [facility] 07:11 AM Pt taken to 3B Room# 37 [facility] 07:12 AM Complications: None [facility] 07:12 AM Fluoro Time: 4.6 minutes [facility] 07:12 AM Isovue 250- 150ml contrast 34 ml given by Geovanny Vitale MD [facility] 07:12 AM Radiation Dose 338.6 mGy [facility] 07:15 AM Time: 07:00LOC: 4 = Oriented but drowsy [facility] 07:15 AM Time: 07:00 Is patient comfortable and pain free?: Yes [facility] 06:20 AM PVIStat 06:44 AM PVIStat 06:44 AM Vitals capture started with the following parameters, Patient=Adult, Interval=5 min, Initial Sbehtqyc=604 mmHg, Deflation Rate=3 mmHg, Cuff placed on Right Arm 06:47 AM Vitals capture stopped. 06:48 AM Vitals capture started with the following parameters, Patient=Adult, Interval=5 min, Initial Vktehbos=121 mmHg, Deflation Rate=3 mmHg, Cuff placed on Right Arm 06:49 AM HR=93 bpm, WQYA=517/140 mmhg, SpO2=98.0 %, Resp=12 B/min, EtCO2=32 mmHg 06:50 AM Recorded ECG: HR=84 Condition=Condition 1 06:52 AM Pressure channel 1 zeroed. 06:54 AM HR=73 bpm, LIFX=370/113 mmhg, SpO2=99.0 %, Resp=19 B/min, EtCO2=31 mmHg 06:56 AM Recorded Pressure: Ao, HR=72, Condition=Condition 1 (Aorta) Ao 219/108/150 07:00 AM HR=83 bpm, USAL=226/111 mmhg, SpO2=98.0 %, Resp=36 B/min, EtCO2=30 mmHg 07:04 AM HR=82 bpm, OKNN=556/118 mmhg, SpO2=97.0 %, Resp=20 B/min, EtCO2=32 mmHg 07:10 AM HR=82 bpm, AEZB=652/111 mmhg, SpO2=99.0 %, Resp=21 B/min, EtCO2=31 mmHg 07:14 AM HR=85 bpm, FWYU=876/117 mmhg, SpO2=98.0 %, Resp=20 B/min 07:18 AM Report given to Autumn CASTILLO. Pt taken to , Room # 37 07:18 [facility] 06:46 AM 06:46 Versed 1 mg Intravenous Given by Wicho Ortiz RN avis 07:30 AM Time: 07:15 Is patient comfortable and pain free?: Yes [facility] 07:30 AM Time: 07:15LOC: 5 = Fully awake and oriented or at pre-proc level [facility] 07:33 AM Site status No bleeding/hematoma - Rt Groin as reported by Lex Barone RT (R) at 07:33 [facility] 07:33 AM Opsite applied [facility] 07:34 AM Patient out of room 07:34 [facility] Hemodynamic Results Site Systolic Diastolic Mean Location Timing Ao 219 108 150 Post Procedure Information Blood Pressure: 202/111 mmHg Post procedure instructions given Site Checks Time Location Status Staff Sheath In? Note 7:11:00 AM Rt Groin No bleeding/hematoma Lex Barone RT (R) 7:33:00 AM Rt Groin No bleeding/hematoma Lex Barone RT (R) Pulses Time Site Pre Procedure Post Procedure Note Bilateral DP & PT 2+ Updated by Chey Andrade RN on 08/27/2018 7:35:20 AM electronically signed on 08/27/2018 7:35:48 AM with status of Final
[2018-08-27] MEDS: Aspirin Enteric Coated 81 MG Tablet PO SCH (09:01)
[2018-08-27] MEDS: Hydroxyurea 500 MG CAPSULE PO SCH (09:01)
[2018-08-27] MEDS: hydrALAZINE 25 MG TABLET PO SCH ×4 (09:02→20:23)
[2018-08-27] MEDS: Ondansetron 4 MG/2 ML VIAL IVP PRN (10:49)
[2018-08-27 11:41] LABS: Basophils # 0.1 K/mcL (0.0-0.2); Basophils % 0.6 %; Eosinophils # 0.1 K/mcL (0.0-0.6); Eosinophils % 0.6 %; Hematocrit 36.2 % (35.3-44.9); Hemoglobin 11.7 g/dL (11.5-15.4); Immature Granulocytes % 0.3 % (0-4); Lymphocytes # 1.3 K/mcL (0.6-4.6); Lymphocytes % 14.5 %; Mean Corpuscular HGB Conc 32.3 g/dL (31.6-35.5); Mean Corpuscular Hemoglobin 30.5 pg (28.0-33.3); Mean Corpuscular Volume 94.3 fL (83.0-100.0); Mean Platelet Volume 9.4 fL (9.4-12.4); Monocytes # 0.4 K/mcL (0.0-1.3); Monocytes % 4.2 %; Platelet Count 709 K/mcL (140-400); Red Blood Count 3.84 M/mcL (3.82-4.97); Red Cell Distribution Width 16.5 % (11.5-14.5); Segmented Neutrophils % 79.8 %; White Blood Count 8.8 K/mcL (4.3-11.1)
[2018-08-27 11:59] LABS: BUN/Creatinine Ratio 13 (6-26); Blood Urea Nitrogen 13 mg/dL (6-20); Calcium 9.7 mg/dL (8.6-10.3); Carbon Dioxide 20 mEq/L (23-29); Chloride 106 mEq/L (98-107); Glucose 102 mg/dL (70-105); Osmolality,Calculated 282 (280-300); Potassium 3.5 mEq/L (3.5-5.1); Sodium 136 mEq/L (136-145); eGFR For African Americans > 60 (> 60); eGFR For Non-African Americans > 60 (> 60)
[2018-08-27] MEDS: *HR* FentaNYL (PF) 100 MCG/2 ML VIAL IVP PRN ×2 (12:25→21:22)
[2018-08-27] MEDS ORDERED: niCARdipine 20 MG/200 ML MLS IVC SCH (13:15)
--- NOTE | 2018-08-27 13:16 | Internal Med Progress Note ---
Hospitalist Progress Note - Encounter Date of Encounter: 08/27/18 Time of Encounter: 13:10 - Subjective Interval History: Ms. Curiel is a 43 year old female with a past medical history of essential thrombocythemia, b/l renal artery stenosis, uncontrolled hypertension and GERD who initially presented to [facility] after a near syncopal episode. She suddenly felt dizzy and lightheaded as if she was going to pass out. She immediately sat back down, became nauseous, diaphoretic and began vomiting. Patient has had several episodes where she felt lightheaded and even passed out secondary to labile BP with the renal artery stenosis. On arrival to [place] patient was noted to be hypertensive with a blood pressure of 198/98. Laboratory workup was notable for a mild AK I with a creatinine of 1.43. Initial troponin was 0.04. D-dimer was obtained which was 652. EKG at [place] was obtained and there was concern for subtle subcentimeter ST depressions in lead 2 in lateral precordial leads. She was admitted in the hospital placed on monitor car operator. Her serial troponin were negative. She denied any more near syncopal episodes. However she still have uncontrolled BP. She did go fro renal angiogram due to her b/l renal arterial stenosis. She started c/o severe lower abd pain. - Exam Vitals: Temp Pulse Resp BP Pulse Ox 97.8 F 91 24 184/100 99 08/27/18 08:40 08/27/18 11:31 08/27/18 10:40 08/27/18 10:35 08/27/18 10:40 Exam: Gen: Alert, awake, Oriented to time,place and person Chest: Diminished breath sounds B/L, No wheezing, No crackles, No rales Heart: S1S2+ RRR No murmurs Abd: Soft, Moderate distended at lower abd and supra pubic region, BS +, No organomegaly Ext: No edema, pulses are palpable, No calf tenderness Neuro : No acute focal neuro deficits noticed Skin: No rash. - Assessment and Plan (1) Hypertensive urgency Current Visit: Yes Status: Acute Assessment and Plan: Fluctuating BS.. Mostly due to renal arterial stenosis cont Aldactone and Hydralazine started on IV hydralazine PRN However BP still uncontrolled in 190's so will transfer her to step down unit and started her on Nicardipine gtt also consulted Nephro for further management Patient does need to stay in the hospital more than 2 midnights due to her complex medical problems. So we will change her to full admission today. I did review my colleague Dr. Ace's H & P including HPI, PMH, PSH, FH, SH, and ROS no changes noticed (2) Bilateral renal artery stenosis Current Visit: Yes Status: Chronic Assessment and Plan: Reviewed her renal arterial doppler b/l renal arterial stenosis > 75 % Vascular surgery on boardd She did go for renal angiogram .. which showed Rt side chronically occluded and possible atrophic kidney avoid ACEI / ARBs Consulted Nephro too (3) Pre-syncope Current Visit: No Status: Acute Assessment and Plan: Multi factorial she does have mild EKG changes She does have severe vascular path cont ASA and Nitro PRN Repeat EKG did not show any acute ischemic changes her echocardiogram showed LVEF 60 to 65%, moderate left ventricular diastolic dysfunction no wall motion/septal abnormalities noticed Her carotid doppler showed - Left side Mid ICA has a 60-79% stenosis and Rt side is normal Will order stress test in AM if her BP get controlled - as part of ischemic workup (4) Abnormal ECG Current Visit: No Status: Acute Assessment and Plan: Several subcentimeter ST depressions in leads 2 and lateral precordial leads. Repeat EKG here appears to show resolution. Patient did have a mildly elevated troponin of 0.04. -We will obtain echocardiogram. -Follow up cardiology input (5) LALI (acute kidney injury) Current Visit: No Status: Acute Assessment and Plan: Due to dehydration and b/l Renal arterial stenosis Improved with IV hydration d/c ACEI / ARBS ( avoid them ) (6) Thrombocytosis Current Visit: No Status: Chronic Assessment and Plan: History of essential thrombocythemia currently on hydroxyurea therapy. Platelet count 672 today Continue hydroxyurea (7) Abdominal pain Current Visit: Yes Status: Acute Assessment and Plan: s/p renal angiogram Ordered CT of Abd / Pelvis which showed some Fat stranding and fluid in the righ t groin compatible with small amount of hemorrhage Talked to Dr. Vitale, who reviewed CT and did not notice any hematoma She does have Urinary retention with distended bladder - so placed straight cath x 1 Bladder scan q shift for now (8) DVT prophylaxis Current Visit: No Status: Acute Assessment and Plan: Subcutaneous heparin - Time Spent with Patient Total time spent is greater than 50% in coordination of care (as documented) at patient's floor/unit and/or counseling patient: Internal Medicine: Result - Labs CBC & Chem 7: 08/27/18 11:30 08/27/18 11:30 Labs: Short CBC 08/27/18 Range/Units 11:30 WBC 8.8 (4.3-11.1) K/mcL Hgb 11.7 (11.5-15.4) g/dL Hct 36.2 (35.3-44.9) % Plt Count 709 H (140-400) K/mcL Neutrophils # 7.0 (1.6-8.9) K/mcL BMP 08/27/18 11:30 Sodium 136 Potassium 3.5 Chloride 106 Carbon Dioxide 20 L BUN 13 Creatinine 0.98 Glucose 102 Calcium 9.7 - ABG Interpretation ABG results: PT/INR, D-dimer PT 12.4 Seconds (9.4-12.1) H 08/26/18 02:20 - Impressions Impressions Abdomen/Pelvis CT 08/27/18 11:28 IMPRESSION: No CT evidence of acute intra-abdominal process. Fat stranding and fluid in the right groin compatible with small amount of hemorrhage. Lack of IV contrast precludes evaluation for any arterial abnormality. Atrophic right kidney. D/ / Ivan Brandon / Ivan Brandon Interpreting Provider: Ivan Brandon Consult Discharge Plan - Plan Referrals: Cinthya Deleon PRESIDENT AND CHIEF EXECUTIVE OFFICER [Primary Care Provider] - 08/31/18 2:30 pm (7) Abdominal pain Qualifiers: Abdominal location: lower abdomen, unspecified Qualified Code(s): R10.30 - Lower abdominal pain, unspecified
[2018-08-27] MEDS: 0.9 % Sodium Chloride 1,000 ML IVC SCH (13:32)
[2018-08-27] MEDS: niCARdipine 20 MG in 0.9 % Sodium Chloride 192 ML IVPB SCH ×5 (14:10→22:26)
[2018-08-27] MEDS ORDERED: Ondansetron 4 MG/2 ML VIAL IVP ONE (14:42)
--- NOTE | 2018-08-27 16:48 | Event Note ---
Date of Encounter: 08/27/18 Time of Encounter: 14:45 The patient was seen this afternoon. She is feeling much better after her bladder was drained with a catheter. She had 1000 mL of urine drained. She is more comfortable now that she is sitting up. Her exam reveals a soft, nontender abdomen as well as no evidence of hematoma at the access site. A discussion was held with the patient regarding her angiogram findings. She is noted to have a occluded right renal artery. She has distal collateral circulation into a partially atrophic right kidney. The patient was discussed with Dr. Hernandez regarding additional antihypertensives and possible need for nephrectomy in the future should her hypertension persist.
[2018-08-27] MEDS: Acetaminophen 325 MG TABLET PO PRN (17:52)
--- NOTE | 2018-08-27 21:17 | Nephrology Consult Note ---
Date of Encounter: 08/27/18 Time of Encounter: 16:00 History of Present Illness - Reason for Consult Consult date: 08/27/18 accelerated hypertension Requesting physician: Giulia Patel - History of Present Illness 43 y o female with PMH of uncontrolled HTN and focal glomerulosclerosis on renal biopsy admitted with Past Med Surg Social Fam HX - Past Medical History Medical history: GERD, hypertension, renal disease, thyroid disease, other Additional medical history: essential thrombocythemia Psychiatric history: anxiety, depression - Past Surgical History Surgical History: appendectomy, thyroidectomy Additional surgical history: NECK TUMOR REMOVED (NON CANCEROUS). TUBAL LIGATION - Social History Smoking Status: Never smoker Smokeless Tobacco Status: No Alcohol use: none Drug use: none - Family History Mother Adopted: No Family Member Ethnicity: Non- Living Status: Still Living Hx Family Cardiac Disorders: Yes (htn) Hx Family Neurologic Disorders: No Father Living Status: Still Living Hx Family Cardiac Disorders: Yes (htn, cva) Hx Family Neuromuscular Disorders: Yes (TIA) Medications and Allergies Aspirin [Lo-Dose Aspirin EC] 81 mg PO DAILY 07/19/17 [History] Fluticasone Propionate Nasal [Flonase] 1 spr NS DAILY PRN 07/19/17 [History] Ferrous Sulfate [Iron] 325 mg PO DAILY 11/02/17 [History] Hydralazine HCl 100 mg PO TID 11/02/17 [History] Losartan Potassium [Cozaar] 50 mg PO DAILY 01/13/18 [History] Hydroxyurea [Hydrea] 500 mg PO DAILY #30 capsule 05/24/18 [Rx] Omeprazole 20 mg PO DAILY PRN 08/26/18 [History] Spironolactone [Aldactone] 50 mg PO BID 08/26/18 [History] Cetirizine HCl [Allergy Relief] 10 mg PO DAILY 08/27/18 [History] Furosemide [Lasix] 20 mg PO DAILY PRN 08/27/18 [History] Allergy/AdvReac Type Severity Reaction Status Date / Time hydrochlorothiazide AdvReac See Verified 08/25/18 13:35 Comments lisinopril AdvReac See Verified 08/27/18 16:28 Comments Exam - Vital Signs Vital signs: Initial Vital Signs Temp Pulse Resp BP Pulse Ox 97.9 F 99 18 163/82 95 08/25/18 22:58 08/25/18 22:58 08/25/18 22:58 08/25/18 22:58 08/25/18 22:58 Vital Signs - Last 8 Hours Temp Pulse Resp BP Pulse Ox 08/27/18 19:38 98.4 F 103 18 175/87 96 08/27/18 18:15 93 153/82 08/27/18 18:00 100 165/82 08/27/18 17:30 108 169/70 08/27/18 17:15 111 165/67 08/27/18 17:00 110 165/84 08/27/18 16:55 97.9 F 97 16 177/93 91 08/27/18 16:45 114 177/93 08/27/18 16:30 111 174/81 08/27/18 16:00 101 170/93 08/27/18 15:45 90 167/82 08/27/18 15:30 107 174/94 08/27/18 15:15 102 163/81 08/27/18 15:00 88 182/89 08/27/18 14:15 100 172/91 08/27/18 14:00 96 191/90 08/27/18 13:53 98 08/27/18 13:45 99 188/97 08/27/18 13:33 97.9 F 103 18 220/116 98 Intake and Output 08/27/18 08/27/18 08/27/18 07:59 15:59 23:59 Intake Total 1100 / 1600 500 / 1600 Output Total 900 / 1900 1000 / 1900 Balance -900 / -300 100 / -300 500 / -300 Intake: IV Fluids 1100 / 1600 500 / 1600 0.9 % Sodium Chloride 1,000 ML 1000 / 1000 @ 70 mls/hr IVC .[id number] [facility] Rx #:[id number] Cardene 20 MG In 0.9 % Sodium 100 / 600 500 / 600 Chloride 192 ML @ 5 MG/HR 50 mls/hr IVPB .Q4H [facility] Rx#: [id number] Output: Urine 900 / 1900 1000 / 1900 Other: Meal NPO Weight 86.5 kg Patient Weight 08/27/18 23:59 Weight 86.5 kg Results - Lab Results 08/27/18 11:30 08/27/18 11:30 Most recent lab results 08/27/18 11:30 Calcium 9.7 Consult Discharge Plan - Plan Referrals: Cinthya Deleon CNP [Primary Care Provider] - 08/31/18 2:30 pm
[2018-08-28] MEDS: Acetaminophen 325 MG TABLET PO PRN (00:31)
[2018-08-28] MEDS: niCARdipine 20 MG in 0.9 % Sodium Chloride 192 ML IVPB SCH ×4 (00:37→23:47)
[2018-08-28 02:26] LABS: Basophils % 0.3 %; Eosinophils # 0.1 K/mcL (0.0-0.6); Eosinophils % 0.6 %; Hemoglobin 10.6 g/dL (11.5-15.4); Immature Granulocytes % 0.2 % (0-4); Lymphocytes # 1.3 K/mcL (0.6-4.6); Lymphocytes % 14.5 %; Mean Corpuscular HGB Conc 33.1 g/dL (31.6-35.5); Mean Corpuscular Hemoglobin 30.9 pg (28.0-33.3); Mean Corpuscular Volume 93.3 fL (83.0-100.0); Mean Platelet Volume 9.8 fL (9.4-12.4); Monocytes # 0.5 K/mcL (0.0-1.3); Monocytes % 5.8 %; Platelet Count 647 K/mcL (140-400); Red Blood Count 3.43 M/mcL (3.82-4.97); Red Cell Distribution Width 16.9 % (11.5-14.5); Segmented Neutrophils % 78.6 %; White Blood Count 8.9 K/mcL (4.3-11.1)
[2018-08-28 02:28] LABS: BUN/Creatinine Ratio 11 (6-26); Blood Urea Nitrogen 10 mg/dL (6-20); Calcium 9.3 mg/dL (8.6-10.3); Carbon Dioxide 20 mEq/L (23-29); Chloride 106 mEq/L (98-107); Glucose 126 mg/dL (70-105); Osmolality,Calculated 283 (280-300); Potassium 3.2 mEq/L (3.5-5.1); Sodium 136 mEq/L (136-145); eGFR For African Americans > 60 (> 60); eGFR For Non-African Americans > 60 (> 60)
[2018-08-28] MEDS: 0.9 % Sodium Chloride 1,000 ML IVC SCH (03:32)
[2018-08-28] MEDS: *HR* Heparin 5,000 UNIT/ML VIAL SQ SCH ×3 (04:56→21:21)
[2018-08-28] MEDS ORDERED: Furosemide 40 MG/4 ML VIAL IVP.RAD ONE (06:54)
--- NOTE | 2018-08-28 08:20 | Internal Med Progress Note ---
Hospitalist Progress Note - Encounter Date of Encounter: 08/28/18 Time of Encounter: 13:00 - Subjective Interval History: No acute events overnight - Exam Vitals: Temp Pulse Resp BP Pulse Ox 98.1 F 99 16 156/98 93 08/28/18 04:09 08/28/18 04:09 08/28/18 04:09 08/28/18 06:00 08/28/18 04:09 Exam: Gen: Alert, awake, Oriented to time,place and person Chest: Diminished breath sounds B/L, No wheezing, No crackles, No rales Heart: S1S2+ RRR No murmurs Abd: Soft, Moderate distended at lower abd and supra pubic region, BS +, No organomegaly Ext: No edema, pulses are palpable, No calf tenderness Neuro : No acute focal neuro deficits noticed Skin: No rash. - Assessment and Plan (1) Hypertensive emergency Current Visit: Yes Status: Acute Assessment and Plan: Pt had hypertensive emergency with LALI likely secondary to renal artery stenosis Was on nicardipine drip overnight but has been weaned down to po clonidine, minoxidil, spironolactone and hydralazine Monitor BP (2) Bilateral renal artery stenosis Current Visit: Yes Status: Chronic Assessment and Plan: Pt has bilateral renal artery stenosis with severe hypertension She was seen by vascular surgery and nephrology She had an angiogram done showing and atrophic right kidney and a nuclear medicine scan showing delayed perfusion in right kidney Patient 's preference is a nephrectomy at this time, will follow up with renal and vascualr surgery (3) LALI (acute kidney injury) Current Visit: Yes Status: Acute Assessment and Plan: Due to dehydration and b/l Renal arterial stenosis Resolved with hydration (4) Thrombocytosis Current Visit: Yes Status: Chronic Assessment and Plan: History of essential thrombocythemia currently on hydroxyurea therapy. Platelet count 672 today Continue hydroxyurea (5) Pre-syncope Current Visit: Yes Status: Acute Assessment and Plan: Initial EKG showed some ischemic changes Her echocardiogram showed LVEF 60 to 65%, moderate left ventricular diastolic dysfunction with no wall motion abnormalities Her carotid doppler showed - Left side Mid ICA has a 60-79% stenosis and Rt side is normal Hold stress test for now till BP and HR are better controlled (6) Abnormal ECG Current Visit: Yes Status: Acute Assessment and Plan: Several subcentimeter ST depressions in leads 2 and lateral precordial leads. Repeat EKG here appears to show resolution. Patient did have a mildly elevated troponin of 0.04. Stress test on hold until BP and HR are better controlled (7) DVT prophylaxis Current Visit: Yes Status: Acute Assessment and Plan: Subcutaneous heparin - Time Spent with Patient Total time spent is greater than 50% in coordination of care (as documented) at patient's floor/unit and/or counseling patient: Internal Medicine: Result - Labs CBC & Chem 7: 08/28/18 01:01 08/28/18 01:01 Labs: Short CBC 08/27/18 08/28/18 Range/Units 11:30 01:01 WBC 8.8 8.9 (4.3-11.1) K/mcL Hgb 11.7 10.6 L (11.5-15.4) g/dL Hct 36.2 32.0 L (35.3-44.9) % Plt Count 709 H 647 H (140-400) K/mcL Neutrophils # 7.0 7.0 (1.6-8.9) K/mcL BMP 08/27/18 08/28/18 11:30 01:01 Sodium 136 136 Potassium 3.5 3.2 L Chloride 106 106 Carbon Dioxide 20 L 20 L BUN 13 10 Creatinine 0.98 0.94 Glucose 102 126 H Calcium 9.7 9.3 - ABG Interpretation ABG results: PT/INR, D-dimer PT 12.4 Seconds (9.4-12.1) H 08/26/18 02:20 - Impressions Impressions Abdomen/Pelvis CT 08/27/18 11:28 IMPRESSION: No CT evidence of acute intra-abdominal process. Fat stranding and fluid in the right groin compatible with small amount of hemorrhage. Lack of IV contrast precludes evaluation for any arterial abnormality. Atrophic right kidney. D/ / Ivan Brandon / Ivan Brandon Interpreting Provider: Ivan Brandon Consult Discharge Plan - Plan Referrals: Cinthya Deleon [facility] [Primary Care Provider] - 08/31/18 2:30 pm
[2018-08-28] MEDS: hydrALAZINE 25 MG TABLET PO SCH ×3 (08:34→21:21)
[2018-08-28] MEDS: Aspirin Enteric Coated 81 MG Tablet PO SCH (08:34)
[2018-08-28] MEDS: Hydroxyurea 500 MG CAPSULE PO SCH (08:34)
[2018-08-28] MEDS: Potassium Chloride Elixir 20 MEQ/15 ML UDC PO SCH ×2 (08:37→11:37)
--- NOTE | 2018-08-28 22:54 | Nephrology Progress Note ---
Date of Encounter: 08/28/18 Time of Encounter: 14:00 - Assessment and Plan (1) Hypertensive emergency Current Visit: Yes Status: Acute Minoxidil 2.5mg bid added yesterday to regimen, can increase as needed Continue low sodium diet, off IVF Renal scan noted with split fxn L82% and R 18%, pt wants to discuss nepherectomy option since CHARLES not amenable to intervention (2) Atrophy of right kidney Current Visit: No Status: Acute As above (3) LALI (acute kidney injury) Current Visit: Yes Status: Acute resolved (4) Bilateral renal artery stenosis Current Visit: Yes Status: Chronic s/p angiogram with R side noted chronically occluded renal artery with atrophy and L side well open renal artery Subjective Interval history: Pt seen and examined off nicardipine gtt but anxious about wanting a nephrectomy. BP readings noted as low as 140s-160s systolic today Objective - Vital Signs Vital signs: Vital Signs Temp Pulse Resp BP Pulse Ox 08/28/18 22:00 204/103 08/28/18 21:31 102 08/28/18 21:00 185/100 08/28/18 20:33 99.7 F H 96 16 178/89 95 08/28/18 20:30 178/89 08/28/18 20:00 189/113 08/28/18 19:30 175/97 08/28/18 19:00 158/96 08/28/18 18:15 86 170/91 08/28/18 17:45 98 184/102 08/28/18 17:09 98.2 F 104 18 182/100 96 08/28/18 17:00 111 182/100 08/28/18 15:15 105 176/90 08/28/18 11:57 98.5 F 107 18 161/96 96 08/28/18 08:40 95 08/28/18 08:00 89 176/91 08/28/18 06:00 156/98 08/28/18 05:30 140/79 08/28/18 05:00 163/94 08/28/18 04:30 154/106 08/28/18 04:09 98.1 F 99 16 141/72 93 08/28/18 04:00 141/72 08/28/18 03:30 161/96 08/28/18 03:00 161/96 08/28/18 02:30 139/94 08/28/18 02:00 152/69 08/28/18 01:30 128/74 08/28/18 01:00 143/78 08/28/18 00:30 154/75 08/28/18 00:00 157/69 08/27/18 23:53 98 F 100 17 154/67 94 08/27/18 23:30 152/92 08/27/18 23:00 169/87 Intake and Output 08/28/18 08/28/18 08/28/18 07:59 15:59 23:59 Intake Total 1400 / 1960 370 / 1960 190 / 1960 Output Total 350 / 1250 500 / 1250 400 / 1250 Balance 1050 / 710 -130 / 710 -210 / 710 Intake: IV Fluids 1400 / 1600 10 / 1600 190 / 1600 0.9 % Sodium Chloride 1,000 ML 1000 / 1000 @ 70 mls/hr IVC .[id number] [facility] Rx #:[id number] Cardene 20 MG In 0.9 % Sodium 400 / 600 10 / 600 190 / 600 Chloride 192 ML @ 5 MG/HR 50 mls/hr IVPB .Q4H [facility] Rx#: [id number] Oral 360 / 360 Output: Urine 350 / 1250 500 / 1250 400 / 1250 Other: Meal Lunch Dinner Percent of Meal Consumed 50% 5% Weight 85.4 kg Patient Weight 08/28/18 23:59 Weight 85.4 kg - General Appearance General appearance: Present: well-developed, well-nourished EENT: Present: ATNC, mucous membranes moist Neck: Present: no JVD, supple Respiratory: Present: clear Cardiology: Present: no edema, normal S1, normal S2 Gastrointestinal: Present: no tenderness, no guarding Integumentary: Present: warm and dry Neurologic: Present: no focal deficit Musculoskeletal: Present: no deformities Psychiatric: Present: cooperative (mildly anxious) - Lab 08/28/18 01:01 08/28/18 01:01 Consult Discharge Plan - Plan Referrals: Cinthya Deleon CNP [Primary Care Provider] - 08/31/18 2:30 pm
[2018-08-29] MEDS: Acetaminophen 325 MG TABLET PO PRN (01:14)
[2018-08-29] MEDS: Ondansetron 4 MG/2 ML VIAL IVP PRN ×2 (01:14→20:41)
--- NOTE | 2018-08-29 01:26 | Urology - Consult Note ---
Date of Encounter: 08/29/18 Time of Encounter: 08:36 - Assessment and Plan (1) Renal artery stenosis Current Visit: Yes Status: Acute Assessment and plan: Complete occlusion of right renal artery with atrophy and 18% split differential function. Suspect fibromuscular dysplasia given age and presentation with poorly controlled hypertension despite being on 4 antihypertensive medications. Regardless of exact etiology of renal artery stenosis, the patient has an essentially nonfunctioning right kidney with poorly controlled hypertension of suspected renovascular origin. Current picture is further complicated by recent duplex study suggesting 75% stenosis of both renal arteries. Aortogram images from 08/27/2018 are not yet uploaded in PACS for review. We are consulted for consideration of right nephrectomy. Discussed findings with patient and need for further investigations prior to determining whether right nephrectomy vs left renal revascularization (functional solitary left kidney) is most appropriate for potential address of presumed renovascular hypertension. Plan: If patient does indeed have bilateral renal artery stenosis, would consider study to lateralize renin activity (Captopril renography, renal vein renin sampling, etc.) prior to preceeding with right nephrectomy. Will ask Hospitalist service to proceed with preoperative preparations including stress testing and cardiology clearance if needed. We would be able to schedule a minimally invasive right nephrectomy or potential reconstructive left renovascular surgery within a week or two once medically cleared. (2) Atrophy of right kidney Current Visit: No Status: Acute Assessment and plan: Essentially none functioning right kidney (18% split differential function). Significant hypertension suspected to be related to right renal artery stenosis. Question of bilateral renal artery stenosis on recent duplex study. Plan: Will review Aortogram with Vascular Surgery. If significant stenosis of the left renal artery is also present, will recommend study for lateralization of renin activity to determine if right nephrectomy or left renal revascularization is most likely to address her hypertension. (3) Renovascular hypertension Current Visit: Yes Status: Acute Assessment and plan: Admitted for hypertensive urgency with failure of medical management to control her HTN at home. Patient reports multiple hospital admissions over the past 4 years for the same. Presumed renovascular hypertension from known renal artery stenosis. Recent duplex suggests bilateral 75% renal artery stenosis. Recent aortogram reports 100% occlusion of right renal artery. Aortogram images not currently available in PACS for review of left renal artery. Plan: Will review aortogram images and discuss aortogram findings with Vascular Surgery (surgeon who performed the study). Further recommendation to follow. Urology CN:HPI Consult date: 08/29/18 Reason for consult Urology: Other (Renovascular Hypertension secondary to Renal Artery Stenosis) Requesting physician: Maynor Phan History of present illness: Ms. Curiel is a 43 year old female with a past medical history of essential thrombocythemia, renal artery stenosis, hypertension and GERD who initially presented to [facility] after a near syncopal episode. Patient states she was in her usual state of health today. She awoke and took her normal blood pressure medications. Patient had lunch with family members at a restaurant. She states that towards the end of the meal, she stood up from the table and suddenly felt dizzy and lightheaded as if she was going to pass out. She immediately sat back down, became nauseous, diaphoretic and began vomiting. Symptoms do not improve and patient decided to come into the ED. Patient has had several episodes where she felt lightheaded and even passed out secondary to labile with the renal artery stenosis. Denies any history of blood clots. Patient is currently on a baby aspirin and hydroxyurea for her ET. Patient denied any chest pain but did report some shortness of breath. No prior history of coronary artery disease though does have a family history of heart disease. On arrival to [place] patient was noted to be hypertensive with a blood pressure of 198/98. Laboratory workup was notable for a mild AK I with a creatinine of 1.43. Initial troponin was 0.04. D-dimer was obtained which was 652. EKG at [place] was obtained and there was concern for subtle subcentimeter ST depressions in lead 2 in lateral precordial leads. Case was discussed with cardiology with Dr. Ashley who indicated that she would follow the patient either outpatient or inpatient, but indicated that if the patient has not had a stress test or cardiac evaluation may be reasonable to admit. She wou ld follow her if that occurred. She did discuss the possibility of a painless dissection with the presyncopal episode, however, given patient's LALI CTA was deferred. Patient was given 2 L of fluid boluses, nitroglycerin patch for her hypertension and loading dose of aspirin and was subsequently transferred here for further evaluation. Past surgery and nephrology consulted. Aortogram stated to show complete occlusion of right renal artery with kidney perfused by a few collaterals. Renal Scan with split differential function of 18% on right and 82% on left. Poorly controlled renovascular hypertension. Past Med Surg Social Fam HX - Past Medical History Medical history: GERD, hypertension, renal disease, thyroid disease, other Additional medical history: essential thrombocythemia Psychiatric history: anxiety, depression - Past Surgical History Surgical History: appendectomy, thyroidectomy Additional surgical history: NECK TUMOR REMOVED (NON CANCEROUS). TUBAL LIGATION - Social History Smoking Status: Never smoker Smokeless Tobacco Status: No Alcohol use: none Drug use: none - Family History Mother Adopted: No Family Member Ethnicity: Non- Living Status: Still Living Hx Family Cardiac Disorders: Yes (htn) Hx Family Neurologic Disorders: No Father Living Status: Still Living Hx Family Cardiac Disorders: Yes (htn, cva) Hx Family Neuromuscular Disorders: Yes (TIA) Medications and Allergies Aspirin [Lo-Dose Aspirin EC] 81 mg PO DAILY 07/19/17 [History] Fluticasone Propionate Nasal [Flonase] 1 spr NS DAILY PRN 07/19/17 [History] Ferrous Sulfate [Iron] 325 mg PO DAILY 11/02/17 [History] Hydralazine HCl 100 mg PO TID 11/02/17 [History] Losartan Potassium [Cozaar] 50 mg PO DAILY 01/13/18 [History] Hydroxyurea [Hydrea] 500 mg PO DAILY #30 capsule 05/24/18 [Rx] Omeprazole 20 mg PO DAILY PRN 08/26/18 [History] Spironolactone [Aldactone] 50 mg PO BID 08/26/18 [History] Cetirizine HCl [Allergy Relief] 10 mg PO DAILY 08/27/18 [History] Furosemide [Lasix] 20 mg PO DAILY PRN 08/27/18 [History] Allergy/AdvReac Type Severity Reaction Status Date / Time hydrochlorothiazide AdvReac See Verified 08/25/18 13:35 Comments lisinopril AdvReac See Verified 08/27/18 16:28 Comments Review of Systems - Constitutional malaise, no fever(s) - EENT Nose, mouth and throat: no dry mouth, no sore throat - Cardiovascular no chest pain, no diaphoresis - Respiratory no cough, no dyspnea - Gastrointestinal no abdominal pain, no fecal incontinence - Genitourinary Genitourinary: no dysuria, no flank pain - Musculoskeletal no back pain, no muscle weakness - Integumentary no lesions, no rash - Neurological syncope, no confusion - Psychiatric no anxiety, no confusion - Hematologic/Lymphatic no easy bleeding, no easy bruising - Allergic/Immunologic no throat swelling, no wheezing Exam Initial Vital Signs Temp Pulse Resp BP Pulse Ox 97.9 F 99 18 163/82 95 08/25/18 22:58 08/25/18 22:58 08/25/18 22:58 08/25/18 22:58 08/25/18 22:58 - General physical appearance Present: well nourished, no distress - Eyes Present: normal ocular movement. Absent: icteric - ENT Present: normal nares, normal mucosa - Neck Present: trachea midline - Respiratory Present: normal respiratory effort - Abdomen Abdomen: Absent: guarding - Integumentary Present: no rash, no growths - Neurologic Present: normal coordination - Musculoskeletal Present: other - Additional Findings Normal posture. Upper and lower extremities bilaterally. Urology Results - Labs 08/28/18 01:01 08/28/18 01:01 Abnormal lab results RBC 3.43 M/mcL (3.82-4.97) L 08/28/18 01:01 Hgb 10.6 g/dL (11.5-15.4) L 08/28/18 01:01 Hct 32.0 % (35.3-44.9) L 08/28/18 01:01 RDW 16.9 % (11.5-14.5) H 08/28/18 01:01 Plt Count 647 K/mcL (140-400) H 08/28/18 01:01 9.8 K/mcL (1.6-8.9) H 08/26/18 02:20 PT 12.4 Seconds (9.4-12.1) H 08/26/18 02:20 Potassium 3.2 mEq/L (3.5-5.1) L 08/28/18 01:01 Carbon Dioxide 20 mEq/L (23-29) L 08/28/18 01:01 Est GFR (Non-Af Amer) 58 (> 60) L 08/26/18 02:20 Glucose 126 mg/dL (70-105) H 08/28/18 01:01 B-Natriuretic Peptide 232 pg/mL (Less than 100) H 08/26/18 02:20 Diabetes panel 08/28/18 Range/Units 01:01 Sodium 136 (136-145) mEq/L Potassium 3.2 L (3.5-5.1) mEq/L Chloride 106 (98-107) mEq/L Carbon Dioxide 20 L (23-29) mEq/L BUN 10 (6-20) mg/dL Creatinine 0.94 (0.60-1.20) mg/dL Glucose 126 H (70-105) mg/dL Calcium 9.3 (8.6-10.3) mg/dL Calcium panel 08/28/18 Range/Units 01:01 Calcium 9.3 (8.6-10.3) mg/dL Pituitary panel 08/28/18 Range/Units 01:01 Sodium 136 (136-145) mEq/L Potassium 3.2 L (3.5-5.1) mEq/L Chloride 106 (98-107) mEq/L Carbon Dioxide 20 L (23-29) mEq/L BUN 10 (6-20) mg/dL Creatinine 0.94 (0.60-1.20) mg/dL Glucose 126 H (70-105) mg/dL Calcium 9.3 (8.6-10.3) mg/dL Adrenal panel 08/28/18 Range/Units 01:01 Sodium 136 (136-145) mEq/L Potassium 3.2 L (3.5-5.1) mEq/L Chloride 106 (98-107) mEq/L Carbon Dioxide 20 L (23-29) mEq/L BUN 10 (6-20) mg/dL Creatinine 0.94 (0.60-1.20) mg/dL Glucose 126 H (70-105) mg/dL Calcium 9.3 (8.6-10.3) mg/dL All other labs normal. - Imaging CT scan - abdomen: image reviewed CT scan - pelvis: image reviewed (CT images reviewed and interpreted independently.) Consult Discharge Plan - Plan Referrals: Cinthya Deleon CNP [Primary Care Provider] - 08/31/18 2:30 pm
[2018-08-29] MEDS: niCARdipine 20 MG in 0.9 % Sodium Chloride 192 ML IVPB SCH ×6 (02:31→22:00)
[2018-08-29] MEDS: *HR* Heparin 5,000 UNIT/ML VIAL SQ SCH ×3 (05:04→22:02)
[2018-08-29] MEDS: hydrALAZINE 25 MG TABLET PO SCH ×3 (07:31→22:00)
[2018-08-29] MEDS: Aspirin Enteric Coated 81 MG Tablet PO SCH (07:31)
[2018-08-29] MEDS: Hydroxyurea 500 MG CAPSULE PO SCH (07:31)
--- NOTE | 2018-08-29 08:00 | Internal Med Progress Note ---
Hospitalist Progress Note - Encounter Date of Encounter: 08/29/18 Time of Encounter: 08:00 - Subjective Interval History: No acute events overnight - Exam Vitals: Temp Pulse Resp BP Pulse Ox 98.4 F 84 16 149/81 94 08/29/18 07:08 08/29/18 07:36 08/29/18 07:08 08/29/18 07:08 08/29/18 07:08 Exam: Gen: Alert, awake, Oriented to time,place and person Chest: Diminished breath sounds B/L, No wheezing, No crackles, No rales Heart: S1S2+ RRR No murmurs Abd: Soft, Moderate distended at lower abd and supra pubic region, BS +, No organomegaly Ext: No edema, pulses are palpable, No calf tenderness Neuro : No acute focal neuro deficits noticed Skin: No rash. - Assessment and Plan (1) Hypertensive emergency Current Visit: Yes Status: Acute Assessment and Plan: Pt had hypertensive emergency with LALI likely secondary to renal artery stenosis Was on nicardipine drip overnight but has been weaned down to po, minoxidil, spironolactone and hydralazine Losartan added this am. Monitor BP (2) Bilateral renal artery stenosis Current Visit: Yes Status: Chronic Assessment and Plan: Pt has bilateral renal artery stenosis with severe hypertension She was seen by vascular surgery and nephrology She had an angiogram done showing and atrophic right kidney and a nuclear m edicine scan showing delayed perfusion in right kidney Duplex ultrasound showed bilateral stenosis Urology consulted for possible nephrectomy but suggest further studies to lateralize renin activity to determine which of left renal artery revascularization vs right nephrectomy would be the better option. (3) LALI (acute kidney injury) Current Visit: Yes Status: Acute Assessment and Plan: Due to dehydration and b/l Renal arterial stenosis Resolved with hydration (4) Thrombocytosis Current Visit: Yes Status: Chronic Assessment and Plan: History of essential thrombocythemia currently on hydroxyurea therapy. Platelet count 672 today Continue hydroxyurea (5) Pre-syncope Current Visit: Yes Status: Acute Assessment and Plan: Initial EKG showed some ischemic changes Her echocardiogram showed LVEF 60 to 65%, moderate left ventricular diastolic dysfunction with no wall motion abnormalities Her carotid doppler showed - Left side Mid ICA has a 60-79% stenosis and Rt side is normal Hold stress test for now till BP and HR are better controlled (6) Abnormal ECG Current Visit: Yes Status: Acute Assessment and Plan: Several subcentimeter ST depressions in leads 2 and lateral precordial leads. Repeat EKG here appears to show resolution. Patient did have a mildly elevated troponin of 0.04. Stress test on hold until BP and HR are better controlled (7) DVT prophylaxis Current Visit: Yes Status: Acute Assessment and Plan: Subcutaneous heparin - Time Spent with Patient Total time spent is greater than 50% in coordination of care (as documented) at patient's floor/unit and/or counseling patient: Internal Medicine: Result - Labs CBC & Chem 7: 08/28/18 01:01 08/28/18 01:01 - ABG Interpretation ABG results: PT/INR, D-dimer PT 12.4 Seconds (9.4-12.1) H 08/26/18 02:20 - Impressions Impressions Renal Scan Nuclear Medicine 08/27/18 17:04 IMPRESSION: 1. Normal function of the left kidney with 82% of split renal function. 2. The atrophic right kidney demonstrates delayed perfusion and renal function with evidence of a mild-moderate UPJ partial obstruction that is improved with Lasix administration. D/ / 08/28/2018 10:57:31 Anshu Loo MD / [email or web address] Interpreting Provider: Anshu Loo MD Consult Discharge Plan - Plan Referrals: Cinthya Deleon CNP [Primary Care Provider] - 08/31/18 2:30 pm
[2018-08-29 14:40] LABS: Basophils % 0.5 %; Eosinophils # 0.1 K/mcL (0.0-0.6); Eosinophils % 0.9 %; Hematocrit 32.7 % (35.3-44.9); Immature Granulocytes % 1.5 % (0-4); Lymphocytes # 1.1 K/mcL (0.6-4.6); Lymphocytes % 12.4 %; Mean Corpuscular HGB Conc 33.6 g/dL (31.6-35.5); Mean Corpuscular Volume 92.1 fL (83.0-100.0); Mean Platelet Volume 9.1 fL (9.4-12.4); Monocytes # 0.5 K/mcL (0.0-1.3); Monocytes % 5.3 %; Neutrophils # 6.9 K/mcL (1.6-8.9); Platelet Count 760 K/mcL (140-400); Red Blood Count 3.55 M/mcL (3.82-4.97); Segmented Neutrophils % 79.4 %; White Blood Count 8.7 K/mcL (4.3-11.1)
[2018-08-29 15:01] LABS: BUN/Creatinine Ratio 12 (6-26); Blood Urea Nitrogen 13 mg/dL (6-20); Calcium 10.4 mg/dL (8.6-10.3); Carbon Dioxide 24 mEq/L (23-29); Chloride 101 mEq/L (98-107); Glucose 127 mg/dL (70-105); Osmolality,Calculated 282 (280-300); Potassium 3.8 mEq/L (3.5-5.1); Sodium 135 mEq/L (136-145); eGFR For African Americans > 60 (> 60); eGFR For Non-African Americans 53 (> 60)
--- NOTE | 2018-08-29 17:28 | Nephrology Progress Note ---
Date of Encounter: 08/29/18 Time of Encounter: 12:00 - Assessment and Plan (1) Hypertensive emergency Current Visit: Yes Status: Acute Minoxidil increased to 5mg bid last night with losartan resumed by primary team in addition to hydralazine and aldactone already taking. Can taper nicardipine gtt as needed Continue low sodium diet, off IVF Renal scan noted with split fxn L82% and R 18%, pt wants to discuss nepherectomy option since CHARLES not amenable to intervention. Urology wants to verify need for revasculization of left kidney vs right nephrectomy. Will need to discuss with vascular surgery who did not think revasculization on the left needed (2) Atrophy of right kidney Current Visit: No Status: Acute As above (3) LALI (acute kidney injury) Current Visit: Yes Status: Acute Scr slightly worse today at 1.12, GFR 53, s/p iv contrast 2 days ago, will monitor Encouraged po fluids (4) Bilateral renal artery stenosis Current Visit: Yes Status: Chronic s/p angiogram with R side noted chronically occluded renal artery with atrophy and L side well open renal artery per vascular surgery Subjective Interval history: Pt seen and examined back on nicardipine gtt overnight. Seen by urology, recs no kellen. Per vascular surgery L renal artery wide open on angiogram requiring no intervention. Objective - Vital Signs Vital signs: Vital Signs Temp Pulse Resp BP Pulse Ox 08/29/18 17:00 83 161/80 08/29/18 16:37 98.4 F 84 16 129/62 94 08/29/18 16:30 103 129/62 08/29/18 15:30 98 138/75 08/29/18 15:00 207/99 08/29/18 14:00 90 139/60 08/29/18 13:45 95 155/83 08/29/18 13:15 99 153/92 08/29/18 13:00 99 192/98 08/29/18 12:04 98.7 F 112 20 200/115 97 08/29/18 12:00 114 200/115 08/29/18 11:30 113 187/96 08/29/18 11:00 110 192/98 08/29/18 07:36 84 08/29/18 07:08 98.4 F 96 16 149/81 94 08/29/18 06:00 163/85 08/29/18 05:45 102 160/86 08/29/18 05:30 103 167/83 08/29/18 05:15 97 170/78 08/29/18 05:00 107 188/85 08/29/18 04:45 114 164/95 08/29/18 04:30 109 120/69 08/29/18 04:15 109 173/91 08/29/18 04:00 176/96 08/29/18 03:00 171/94 08/29/18 02:57 98.7 F 83 16 171/94 89 08/29/18 02:00 170/89 08/29/18 01:00 176/97 08/29/18 00:01 98.8 F 106 16 180/95 94 08/29/18 00:00 180/95 08/28/18 23:00 174/78 08/28/18 22:00 204/103 08/28/18 21:31 102 08/28/18 21:00 185/100 08/28/18 20:33 99.7 F H 96 16 178/89 95 08/28/18 20:30 178/89 08/28/18 20:00 189/113 08/28/18 19:30 175/97 08/28/18 19:00 158/96 08/28/18 18:15 86 170/91 08/28/18 17:45 98 184/102 Intake and Output 08/29/18 08/29/18 08/29/18 07:59 15:59 23:59 Intake Total 1600 / 2040 342 / 2040 98 / 2040 Output Total 1150 / 1150 Balance 450 / 890 342 / 890 98 / 890 Intake: IV Fluids 1600 / 1800 102 / 1800 98 / 1800 0.9 % Sodium Chloride 1,000 ML 1000 / 1000 @ 70 mls/hr IVC .[id number] ED[facility] Rx #:[id number] Cardene 20 MG In 0.9 % Sodium 600 / 800 102 / 800 98 / 800 Chloride 192 ML @ 5 MG/HR 50 mls/hr IVPB .Q4H EDMUND Rx#: [id number] Oral 240 / 240 Output: Urine 1150 / 1150 Other: Meal Lunch Percent of Meal Consumed 10% Weight 83.6 kg Patient Weight 08/29/18 23:59 Weight 83.6 kg - General Appearance General appearance: Present: well-developed, well-nourished EENT: Present: ATNC, mucous membranes moist Neck: Present: no JVD, supple Respiratory: Present: clear Cardiology: Present: normal S1, normal S2 Gastrointestinal: Present: no tenderness, no guarding Integumentary: Present: warm and dry Neurologic: Present: no focal deficit Musculoskeletal: Present: no deformities Psychiatric: Present: mood/affect appropriate, cooperative - Lab 08/29/18 14:32 08/29/18 14:32 Most recent lab results 08/29/18 14:32 Calcium 10.4 H Consult Discharge Plan - Plan Referrals: Cinthya Deleon CNP [Primary Care Provider] - 08/31/18 2:30 pm
[2018-08-30] MEDS: niCARdipine 20 MG in 0.9 % Sodium Chloride 192 ML IVPB SCH (00:30)
[2018-08-30] MEDS: Ondansetron 4 MG/2 ML VIAL IVP PRN (05:07)
[2018-08-30] MEDS: *HR* Heparin 5,000 UNIT/ML VIAL SQ SCH ×3 (05:07→20:54)
[2018-08-30 05:20] LABS: Basophils % 0.3 %; Eosinophils # 0.1 K/mcL (0.0-0.6); Eosinophils % 0.8 %; Hematocrit 32.1 % (35.3-44.9); Hemoglobin 10.3 g/dL (11.5-15.4); Immature Granulocytes % 0.4 % (0-4); Lymphocytes % 9.9 %; Mean Corpuscular HGB Conc 32.1 g/dL (31.6-35.5); Mean Corpuscular Hemoglobin 30.6 pg (28.0-33.3); Mean Corpuscular Volume 95.3 fL (83.0-100.0); Mean Platelet Volume 9.5 fL (9.4-12.4); Monocytes # 0.5 K/mcL (0.0-1.3); Monocytes % 4.9 %; Neutrophils # 8.4 K/mcL (1.6-8.9); Platelet Count 748 K/mcL (140-400); Red Blood Count 3.37 M/mcL (3.82-4.97); Red Cell Distribution Width 17.7 % (11.5-14.5); Segmented Neutrophils % 83.7 %
[2018-08-30 05:51] LABS: Calcium 9.7 mg/dL (8.6-10.3); Magnesium 1.8 mg/dL (1.6-2.6); Phosphorous 5.6 mg/dL (2.7-4.5); Potassium 3.8 mEq/L (3.5-5.1)
[2018-08-30] MEDS ORDERED: Regadenoson 0.4 MG/5 ML SYRINGE IVP ONE (06:10)
[2018-08-30] MEDS: hydrALAZINE 25 MG TABLET PO SCH ×3 (07:23→20:54)
[2018-08-30] MEDS: Aspirin Enteric Coated 81 MG Tablet PO SCH (07:26)
[2018-08-30] MEDS: Hydroxyurea 500 MG CAPSULE PO SCH (07:26)
--- NOTE | 2018-08-30 07:46 | Internal Med Progress Note ---
Hospitalist Progress Note - Encounter Date of Encounter: 08/30/18 Time of Encounter: 07:45 - Subjective Interval History: No acute events overnight - Exam Vitals: Temp Pulse Resp BP Pulse Ox 97.9 F 69 16 92/51 93 08/30/18 07:22 08/30/18 07:32 08/30/18 07:22 08/30/18 07:22 08/30/18 07:22 Exam: Gen: Alert, awake, Oriented to time,place and person Chest: Diminished breath sounds B/L, No wheezing, No crackles, No rales Heart: S1S2+ RRR No murmurs Abd: Soft, Moderate distended at lower abd and supra pubic region, BS +, No organomegaly Ext: No edema, pulses are palpable, No calf tenderness Neuro : No acute focal neuro deficits noticed Skin: No rash. - Assessment and Plan (1) Hypertensive emergency Current Visit: Yes Status: Acute Assessment and Plan: Pt had hypertensive emergency with LALI likely secondary to renal artery stenosis Was on nicardipine drip overnight but has been weaned down to po, minoxidil, spironolactone and hydralazine D/C losatan secondary to acute kidney injury Started on normal saline secondary to hypotension this am (2) Bilateral renal artery stenosis Current Visit: Yes Status: Chronic Assessment and Plan: Pt has bilateral renal artery stenosis with severe hypertension She was seen by vascular surgery and nephrology She had an angiogram done showing and atrophic right kidney and a nuclear medicine scan showing delayed perfusion in right kidney Duplex ultrasound showed bilateral stenosis Urology consulted for possible nephrectomy but suggest further studies to lateralize renin activity to determine which of left renal artery revascularization vs right nephrectomy would be the better option. (3) LALI (acute kidney injury) Current Visit: Yes Status: Acute Assessment and Plan: Due to dehydration, hypotension and Losartan in setting of renal artery stenosis Will d/c losartan and start on IV fluids (4) Thrombocytosis Current Visit: Yes Status: Chronic Assessment and Plan: History of essential thrombocythemia currently on hydroxyurea therapy. Platelet count 672 today Continue hydroxyurea (5) Pre-syncope Current Visit: Yes Status: Acute Assessment and Plan: Initial EKG showed some ischemic changes Her echocardiogram showed LVEF 60 to 65%, moderate left ventricular diastolic dysfunction with no wall motion abnormalities Her carotid doppler showed - Left side Mid ICA has a 60-79% stenosis and Rt side is normal Hold stress test for now till BP and HR are better controlled (6) Abnormal ECG Current Visit: Yes Status: Acute Assessment and Plan: Several subcentimeter ST depressions in leads 2 and lateral precordial leads. Repeat EKG here appears to show resolution. Patient did have a mildly elevated troponin of 0.04. Stress test on hold until BP and HR are better controlled (7) DVT prophylaxis Current Visit: Yes Status: Acute Assessment and Plan: Subcutaneous heparin - Time Spent with Patient Total time spent is greater than 50% in coordination of care (as documented) at patient's floor/unit and/or counseling patient: Internal Medicine: Result - Labs CBC & Chem 7: 08/30/18 04:28 08/30/18 04:28 Labs: Short CBC 08/29/18 08/30/18 Range/Units 14:32 04:28 WBC 8.7 10.0 (4.3-11.1) K/mcL Hgb 11.0 L 10.3 L (11.5-15.4) g/dL Hct 32.7 L 32.1 L (35.3-44.9) % Plt Count 760 H 748 H (140-400) K/mcL Neutrophils # 6.9 8.4 (1.6-8.9) K/mcL BMP 08/29/18 08/30/18 14:32 04:28 Sodium 135 L 136 Potassium 3.8 3.8 Chloride 101 102 Carbon Dioxide 24 22 L BUN 13 22 H Creatinine 1.12 3.07 H Glucose 127 H 129 H Calcium 10.4 H 9.7 - ABG Interpretation ABG results: PT/INR, D-dimer PT 12.4 Seconds (9.4-12.1) H 08/26/18 02:20 Consult Discharge Plan - Plan Referrals: Cinthya Deleon CUTTER INSPECTOR [Primary Care Provider] - 08/31/18 2:30 pm
[2018-08-30] MEDS ORDERED: 0.9 % Sodium Chloride 250 ML IV ONE (08:49)
[2018-08-30] MEDS ORDERED: *HR* Promethazine 25 MG/ML VIAL IVP PRN (08:53)
[2018-08-30] MEDS ORDERED: 0.9 % Sodium Chloride 250 ML ONE (08:56)
[2018-08-30] MEDS ORDERED: *HR* Promethazine 25 MG/ML VIAL ONE (08:56)
[2018-08-30] MEDS: 0.9 % Sodium Chloride 1,000 ML IVC SCH ×2 (12:46→23:08)
--- NOTE | 2018-08-30 13:34 | Urology Progress Note ---
Date of Encounter: 08/30/18 Time of Encounter: 13:31 - Assessment and Plan (1) Renal artery stenosis Current Visit: Yes Status: Acute Assessment and plan: Discussed findings of aortogram/renal arteriograms with Dr. Jia arevalo was the surgeon performing the study. There is no stenosis of the left renal artery. The left renal artery is widely patent. This rules out the left renal artery as a potential source of renal vascular hypertension. Right renal artery is completely occluded. Discussed findings with patient, nephrology and hospitalist. Plan: Proceed with minimally invasive right nephrectomy when medically cleared. (2) Atrophy of right kidney Current Visit: No Status: Acute Assessment and plan: Essentially nonfunctional via renal scan. Significant atrophy on CT. 18% split differential function. 15% or lower is the generally accepted definition of a nonfunctioning kidney. Suspect source of renovascular hypertension given completed renal artery occlusion and her repeated hypertensive emergencies and poor control despite greater than 3 hypertensive agents. Plan: Minimally invasive right nephrectomy once medically cleared. (3) Renovascular hypertension Current Visit: Yes Status: Acute Assessment and plan: Totally occluded right renal artery with collaterals to the kidney. Severely atrophic right kidney with essential nonfunction via renal scan. No renal artery stenosis of the left renal artery identified on aortogram/arteriogram. Continues with poorly controlled hypertension despite greater than 3 agents. Clinical picture consistent with renovascular hypertension. Plan: Minimally invasive right nephrectomy once surgical clearance has been completed by primary service. Progress Note Narrative: Patient reports feeling worse today Objective Initial Vital Signs Temp Pulse Resp BP Pulse Ox 97.9 F 99 18 163/82 95 08/25/18 22:58 08/25/18 22:58 08/25/18 22:58 08/25/18 22:58 08/25/18 22:58 - General physical appearance Present: well developed - Respiratory Present: normal expansion, normal respiratory effort - Abdomen Present: non tender - Integumentary Present: no rash, no growths, no abnormal pigmentation - Musculoskeletal Present: normal posture - Psychiatric Present: oriented to time, oriented to person, oriented to place - Labs 08/30/18 04:28 08/30/18 12:59 Diabetes panel 08/29/18 08/30/18 08/30/18 Range/Units 14:32 04:28 12:59 Sodium 135 L 136 (136-145) mEq/L Potassium 3.8 3.8 (3.5-5.1) mEq/L Chloride 101 102 (98-107) mEq/L Carbon Dioxide 24 22 L (23-29) mEq/L BUN 13 22 H (6-20) mg/dL Creatinine 1.12 3.07 H 3.99 H (0.60-1.20) mg/dL Glucose 127 H 129 H (70-105) mg/dL Calcium 10.4 H 9.7 (8.6-10.3) mg/dL Calcium panel 08/29/18 08/30/18 Range/Units 14:32 04:28 Calcium 10.4 H 9.7 (8.6-10.3) mg/dL Phosphorus 5.6 H (2.7-4.5) mg/dL Pituitary panel 08/29/18 08/30/18 08/30/18 Range/Units 14:32 04:28 12:59 Sodium 135 L 136 (136-145) mEq/L Potassium 3.8 3.8 (3.5-5.1) mEq/L Chloride 101 102 (98-107) mEq/L Carbon Dioxide 24 22 L (23-29) mEq/L BUN 13 22 H (6-20) mg/dL Creatinine 1.12 3.07 H 3.99 H (0.60-1.20) mg/dL Glucose 127 H 129 H (70-105) mg/dL Calcium 10.4 H 9.7 (8.6-10.3) mg/dL Adrenal panel 08/29/18 08/30/18 08/30/18 Range/Units 14:32 04:28 12:59 Sodium 135 L 136 (136-145) mEq/L Potassium 3.8 3.8 (3.5-5.1) mEq/L Chloride 101 102 (98-107) mEq/L Carbon Dioxide 24 22 L (23-29) mEq/L BUN 13 22 H (6-20) mg/dL Creatinine 1.12 3.07 H 3.99 H (0.60-1.20) mg/dL Glucose 127 H 129 H (70-105) mg/dL Calcium 10.4 H 9.7 (8.6-10.3) mg/dL - Imaging Additional Studies: Discussed details of aortogram, specifically renal artery findings with Dr. Vitale or who performed the study. There is no evidence of left renal artery stenosis on aortogram left renal arteriogram. Consult Discharge Plan - Plan Referrals: Cinthya Deleon CNP [Primary Care Provider] - 08/31/18 2:30 pm
--- NOTE | 2018-08-30 17:47 | Nephrology Progress Note ---
Date of Encounter: 08/30/18 Time of Encounter: 12:00 - Assessment and Plan (1) LALI (acute kidney injury) Current Visit: Yes Status: Acute SCr worse today Losartan held today NS bolus for hypotension and now on IVF Avoid nephrotoxins if possible (2) Hypertensive emergency Current Visit: Yes Status: Acute Continue minoxidil, aldactone and hydralazine when BP stabilizes, was hypotensiv e this am with all held Renal scan noted with split fxn L82% and R 18%, pt wants to discuss nepherectomy option since CHARLES not amenable to intervention. Urology on board for possible nephrectomy on hold till medically cleared (3) Atrophy of right kidney Current Visit: No Status: Acute As above (4) Bilateral renal artery stenosis Current Visit: Yes Status: Chronic s/p angiogram with R side noted chronically occluded renal artery with atrophy and L side wide open renal artery per vascular surgery Subjective Interval history: Pt seen and examined Objective - Vital Signs Vital signs: Vital Signs Temp Pulse Resp BP Pulse Ox 08/30/18 17:02 99.0 F 104 18 128/56 93 08/30/18 12:49 98.8 F 99 20 100/41 97 08/30/18 10:26 91 126/66 08/30/18 10:05 75 109/55 08/30/18 09:32 79 114/62 08/30/18 09:00 89 116/58 08/30/18 07:32 69 08/30/18 07:22 97.9 F 75 16 92/51 93 08/30/18 04:30 100/43 08/30/18 04:15 84/48 08/30/18 04:00 88/47 08/30/18 03:45 98/51 08/30/18 03:43 97.8 F 72 15 98/51 94 08/30/18 03:30 99/52 08/30/18 03:15 98/55 08/30/18 03:00 89/46 08/30/18 02:45 94/51 08/30/18 02:30 93/49 08/30/18 02:15 102/50 08/30/18 02:00 92/50 08/30/18 01:45 102/47 08/30/18 01:30 135/73 08/30/18 01:15 91/56 08/30/18 01:00 93/54 08/30/18 00:45 99/57 08/30/18 00:00 109/65 08/29/18 23:50 99.1 F 97 16 123/71 94 08/29/18 23:00 119/66 08/29/18 22:00 114/66 08/29/18 21:00 136/70 08/29/18 20:00 151/85 08/29/18 19:51 99.7 F H 104 16 153/81 95 08/29/18 19:23 82 08/29/18 18:00 93 146/65 Intake and Output 08/30/18 08/30/18 08/30/18 07:59 15:59 23:59 Intake Total 347 / 597 250 / 597 Balance 347 / 597 250 / 597 Intake: IV Fluids 347 / 597 250 / 597 0.9 % Sodium Chloride 250 ML @ 250 / 250 0 mls/hr .ROUTE .STK-MED ONE Rx #:[id number] Cardene 20 MG In 0.9 % Sodium 347 / 347 Chloride 192 ML @ 5 MG/HR 50 mls/hr IVPB .Q4H EDMUND Rx#: [id number] Other: Meal NPO Percent of Meal Consumed 0% - Lab 08/30/18 04:28 08/30/18 12:59 Most recent lab results 08/30/18 04:28 Calcium 9.7 Phosphorus 5.6 H Magnesium 1.8 Consult Discharge Plan - Plan Referrals: Cinthya Deleon SOCIAL MEDIA MANAGER [Primary Care Provider] - 08/31/18 2:30 pm
[2018-08-30] MEDS: Acetaminophen 325 MG TABLET PO PRN (23:08)
[2018-08-31] MEDS: *HR* Heparin 5,000 UNIT/ML VIAL SQ SCH ×3 (05:53→20:57)
[2018-08-31 06:21] LABS: Basophils % 0.2 %; Eosinophils # 0.1 K/mcL (0.0-0.6); Hematocrit 28.1 % (35.3-44.9); Hemoglobin 9.2 g/dL (11.5-15.4); Immature Granulocytes % 0.3 % (0-4); Lymphocytes # 1.2 K/mcL (0.6-4.6); Lymphocytes % 12.1 %; Mean Corpuscular HGB Conc 32.7 g/dL (31.6-35.5); Mean Corpuscular Hemoglobin 31.4 pg (28.0-33.3); Mean Corpuscular Volume 95.9 fL (83.0-100.0); Monocytes # 0.5 K/mcL (0.0-1.3); Monocytes % 4.7 %; Neutrophils # 8.3 K/mcL (1.6-8.9); Nucleated Red Blood Cells 0.2 /100 WBC (0); Platelet Count 655 K/mcL (140-400); Red Blood Count 2.93 M/mcL (3.82-4.97); Red Cell Distribution Width 18.5 % (11.5-14.5); Segmented Neutrophils % 81.7 %; White Blood Count 10.1 K/mcL (4.3-11.1)
[2018-08-31] MEDS: 0.9 % Sodium Chloride 1,000 ML IVC SCH ×4 (06:27→21:09)
[2018-08-31 06:35] LABS: Calcium 8.3 mg/dL (8.6-10.3); Magnesium 1.8 mg/dL (1.6-2.6); Potassium 4.2 mEq/L (3.5-5.1)
--- NOTE | 2018-08-31 07:44 | Internal Med Progress Note ---
Hospitalist Progress Note - Encounter Date of Encounter: 08/31/18 Time of Encounter: 07:30 - Subjective Interval History: No acute events overnight - Exam Vitals: Temp Pulse Resp BP Pulse Ox 98.4 F 89 18 108/54 92 08/31/18 04:06 08/31/18 04:06 08/31/18 04:06 08/31/18 04:06 08/31/18 04:06 Exam: Gen: Alert, awake, Oriented to time,place and person Chest: Diminished breath sounds B/L, No wheezing, No crackles, No rales Heart: S1S2+ RRR No murmurs Abd: Soft, Moderate distended at lower abd and supra pubic region, BS +, No organomegaly Ext: No edema, pulses are palpable, No calf tenderness Neuro : No acute focal neuro deficits noticed Skin: No rash. - Assessment and Plan (1) LALI (acute kidney injury) Current Visit: Yes Status: Acute Assessment and Plan: Due to dehydration, contrast with angiogram, stress test, hypotension and Losartan in setting of renal artery stenosis Losartan discontinued. Hydrating with normal saline at 150cc/hr Monitor creatinine (2) Preoperative clearance Current Visit: Yes Status: Acute Assessment and Plan: Patient came in with syncopal episode with EKG showing several subcentimeter ST depressions in leads 2 and lateral precordial leads Repeat EKG showed resolution. Echo and stress test both within normal limits. Pt also has good functional status with METS >4 However due to hypertensive renovascular disease and on going renal failure will consult cardiology for clearance prior to nephrectomy (3) Hypertensive emergency Current Visit: Yes Status: Acute Assessment and Plan: Pt had hypertensive emergency with LALI likely secondary to renal artery stenosis Was on nicardipine drip but has been weaned down to po, minoxidil, spironolactone and hydralazine D/C losartan secondary to acute kidney injury Continue normal saline (4) Bilateral renal artery stenosis Current Visit: Yes Status: Chronic Assessment and Plan: Pt had was thought to be bilateral renal artery stenosis with severe hypertension now confirmed on angiongram as severe unilateral right sided renal stenosis She had an angiogram done showing and atrophic right kidney and a nuclear medicine scan showing delayed perfusion in right kidney Urology consulted for possible nephrectomy and plan for right nephrectomy. Angiogram showed no stenosis in the left kidney and complete stenosis of the right kidney Urology plan for right sided nephrectomy once renal failure improves (5) Thrombocytosis Current Visit: Yes Status: Chronic Assessment and Plan: History of essential thrombocythemia currently on hydroxyurea therapy. Platelet count 672 today Continue hydroxyurea (6) Pre-syncope Current Visit: Yes Status: Acute Assessment and Plan: Initial EKG showed some ischemic changes Her echocardiogram showed LVEF 60 to 65%, moderate left ventricular diastolic dysfunction with no wall motion abnormalities Her carotid doppler showed - Left side Mid ICA has a 60-79% stenosis and Rt side is normal Hold stress test for now till BP and HR are better controlled (7) DVT prophylaxis Current Visit: Yes Status: Acute Assessment and Plan: Subcutaneous heparin - Time Spent with Patient Total time spent is greater than 50% in coordination of care (as documented) at patient's floor/unit and/or counseling patient: Internal Medicine: Result - Labs CBC & Chem 7: 08/31/18 05:09 08/31/18 05:09 Labs: Short CBC 08/31/18 Range/Units 05:09 WBC 10.1 (4.3-11.1) K/mcL Hgb 9.2 L (11.5-15.4) g/dL Hct 28.1 L (35.3-44.9) % Plt Count 655 H (140-400) K/mcL Neutrophils # 8.3 (1.6-8.9) K/mcL BMP 08/30/18 08/31/18 12:59 05:09 Sodium 137 Potassium 4.2 Chloride 104 Carbon Dioxide 18 L BUN 32 H Creatinine 3.99 H 5.00 H Glucose 100 Calcium 8.3 L - ABG Interpretation ABG results: PT/INR, D-dimer PT 12.4 Seconds (9.4-12.1) H 08/26/18 02:20 Consult Discharge Plan - Plan Referrals: Cinthya Deleon CNP [Primary Care Provider] - 09/06/18 12:00 pm (Your appointment for August 31, 2018 1430 today has been cancelled)
--- NOTE | 2018-08-31 08:24 | Cardiology Consult Note ---
<Teresa Marcelo N - Last Filed: 08/31/18 10:02> Date of Encounter: 08/31/18 Time of Encounter: 08:22 Assessment and Plan (1) Preop cardiovascular exam Current Visit: Yes Status: Acute Calculation of patient's Revised Cardiac Risk Index places her into the moderate-risk category due to type of procedure and elevated creatinine, with MACE of 6.6%. Nuclear stress test demonstrated no ischemia or infarct. At this time, no further cardiac workup is indicated. (2) LALI (acute kidney injury) Current Visit: Yes Status: Acute Worsening serum creatinine today of 5.0, increased from 3.99 yesterday. Management per nephrology recommendations. (3) HTN (hypertension) Current Visit: No Status: Acute Current antihypertensive agents include minoxidil 5mg BID, aldactone 50mg BID, hydralazine 100mg TID, and labetalol 100mg BID. Continue management per nephrology and primary teams. Qualifiers: Hypertension type: renovascular hypertension Qualified Code(s): I15.0 - Renovascular hypertension (4) Renal artery stenosis Current Visit: Yes Status: Acute History of >75% bilateral renal artery stenosis, with atrophy of the right kidney. Per urology, plan for right nephrectomy when medically cleared. Discussion w patient/family: The assessment and plan as outlined above was discussed with the patient and/or family members who expressed understanding and agreement. All questions were answered. Thank you for involving us in the care of your patient. Please call with any questions. History of Present Illness Consult date: 08/31/18 Requesting physician: Maynor Phan Consult reason: Preoperative cardiac evaluation Chief complaint: Renovascular hypertension History of present illness: Ms. Curiel is a 43 year old female with a history of GERD, HTN, renal disease, hypothyroidism, and bilateral renal artery stenosis who presented to [facility] ED on 08/25/2018 for evaluation of near syncope. Initial ED workup was significant for hypertensive urgency, with BP 198/98, and mildly elevated troponin of 0.04. Patient was transferred to [facility] for further workup, and subsequently admitted to the hospital for ongoing evaluation and management. During this admission, patient was found to have complete occlusion of the right renal artery, with atrophy of the right kidney. Patient's admission has been c omplicated by development of worsening LALI, as well as intermittent hypotension. Patient is currently planning to undergo right nephrectomy when medically stable. Cardiology consult ordered for preoperative risk stratification. Prior cardiac/vascular testing: * Regadenoson nuclear stress test 08/30/2018: Perfusion imaging negative for ischemia or infarct. Pharmacologic stress ECG nondiagnostic for ischemia due to baseline non-specific ST and T changes. Worsening of baseline ST abnormalities during stress not diagnostic. Cannot rule out ischemia by ECG. Patient demonstrated hypotensive blood pressure response to pharmacologic stress. Gated EF = 56%. * Abdominal aortography 08/27/2018: Aorta and bilateral iliac arteries patent. Proximal and mid right renal artery chronically occluded. Distal right renal artery patent via collateral circulation. Left renal artery patent without hemodynamically significant stenosis. * Echocardiogram 08/25/2018: LVEF 60-65%. Mild concentric left ventricular hypertrophy. Moderate left ventricular diastolic dysfunction. Normal right ventricular structure and function. Moderately dilated left atrium. Mild aortic regurgitation. Mild-moderate tricuspid regurgitation. No pulmonary hypertension. * Carotid doppler ultrasound 08/26/2018: Right carotid arteries normal. Left internal carotid artery has 60-79% stenosis. * Renal artery US 08/05/2018: Right renal artery has a >75% stenosis. Left renal artery has a > 75% stenosis. Vessels appear tortuous. The right kidney size measures 9.1 x 3.7 x 3.3 cm. The left kidney size measures 10.3 x 5.7 x 5.7 cm. * Carotid doppler exam 07/20/2017: Essentially normal bilateral carotid artery systems. Smooth, heterogeneous, nonstenotic plaque in right bifurcation. * Echocardiogram 07/19/2017: LVEF 65%. Normal LV chamber size, wall thickness and function. Mild left ventricular diastolic dysfunction. Normal right ventricular structure and function. No evidence of a PFO with agitated saline contrast. No evidence of pulmonary hypertension. No significant valvular dysfunction. Past Med Surg Social Fam HX - Past Medical History Medical history: GERD, hypertension, renal disease, thyroid disease, other Additional medical history: essential thrombocythemia Psychiatric history: anxiety, depression - Past Surgical History Surgical History: appendectomy, thyroidectomy Additional surgical history: NECK TUMOR REMOVED (NON CANCEROUS). TUBAL LIGATION - Social History Smoking Status: Never smoker Smokeless Tobacco Status: No Alcohol use: none Drug use: none - Family History Mother Adopted: No Family Member Ethnicity: Non- Living Status: Still Living Hx Family Cardiac Disorders: Yes (htn) Hx Family Neurologic Disorders: No Father Living Status: Still Living Hx Family Cardiac Disorders: Yes (htn, cva) Hx Family Neuromuscular Disorders: Yes (TIA) Medications and Allergies Aspirin [Lo-Dose Aspirin EC] 81 mg PO DAILY 07/19/17 [History] Fluticasone Propionate Nasal [Flonase] 1 spr NS DAILY PRN 07/19/17 [History] Ferrous Sulfate [Iron] 325 mg PO DAILY 11/02/17 [History] Hydralazine HCl 100 mg PO TID 11/02/17 [History] Losartan Potassium [Cozaar] 50 mg PO DAILY 01/13/18 [History] Hydroxyurea [Hydrea] 500 mg PO DAILY #30 capsule 05/24/18 [Rx] Omeprazole 20 mg PO DAILY PRN 08/26/18 [History] Spironolactone [Aldactone] 50 mg PO BID 08/26/18 [History] Cetirizine HCl [Allergy Relief] 10 mg PO DAILY 08/27/18 [History] Furosemide [Lasix] 20 mg PO DAILY PRN 08/27/18 [History] Allergy/AdvReac Type Severity Reaction Status Date / Time hydrochlorothiazide AdvReac See Verified 08/25/18 13:35 Comments lisinopril AdvReac See Verified 08/27/18 16:28 Comments All Systems Review: The remainder of the systems were reviewed and are negative - Constitutional Constitutional: fatigue, weakness - Cardiovascular Cardiovascular: lightheadedness, syncope, no chest pain at rest, no chest pain with exertion, no diaphoresis, no dyspnea at rest, no dyspnea on exertion, no irregular heart rhythm, no radiating jaw, neck or arm pain, no leg edema Physical Examination Vital Signs, Last 4 Hours Temp Pulse Resp BP Pulse Ox 08/31/18 07:43 98.1 F 96 18 115/71 90 General: Conversant, No Apparent Distress HEENT: Atraumatic, Normocephaly, Mucus Membranes Moist Neck: No JVD, Normal carotid pulses Cardiac: Reg Rate and Rhythm, Normal S1 and S2 Lungs: Normal Breath Sounds, No Wheeze, Rales, Rhonchi Neuro: Alert and responsive, No focal deficits noted Abdomen: Soft, Non-Tender Skin: No rashes noted on visualized skin Musculoskeletal: No Chest Wall Tenderness Extremities: No Clubbing, No Cyanosis, No Edema, Normal Pulses Results 08/31/18 05:09 06/25/19 05:09 Lab Results 08/30/18 08/31/18 08/31/18 12:59 05:09 05:09 WBC 10.1 Hgb 9.2 L Hct 28.1 L Plt Count 655 H Sodium 137 Potassium 4.2 Chloride 104 Carbon Dioxide 18 L BUN 32 H Creatinine 3.99 H 5.00 H Glucose 100 Calcium 8.3 L Magnesium 1.8 Consult Discharge Plan - Plan Referrals: Cinthya Deleon, PACKAGE CRIMPER [Primary Care Provider] - 09/06/18 12:00 pm (Your appointment for August 31, 2018 1430 today has been cancelled) <Indira Ko - Last Filed: 08/31/18 14:49> Date of Encounter: 08/31/18 - Attending Attestation Patient was seen and evaluated independently by me. Findings, assessment and plan were discussed at length with patient, questions answered. Agree with nurse practitioner's/resident's documentation. Addition as follows, Consulted for preop CV eval. 43 yoCF ho refractory HTN presumably due to renal artery stenosis, L-carotid stenosis, CKD, hypothyroidism, thrombocythemia. P/w significant fluctuation of BP, dizziness, found to have LALI on CKD. 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 Plan for R-nephrectomy. Pt denies chest pain or dyspnea walking several blocks or 2 flight of stairs, no palpitations or LE edema. BP fluctuating, RR, 2/6 SM ULSB, no G/R, abd NT, no LE edema. Serial ECGs SR, LVH with and wo strain pattern. [id number] TTE EF 60-65%, mild LVH, mod LVDD, RV nl, mod LAE, mild AR, mild-mod TR, no PH [id number] Pharm SPECT no ischemia or infarct on perfusion. 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 All questions were answered. Thank you for involving us in the care of your patient. Please call with any questions. History of Present Illness History of present illness: Ms. Curiel is a 43 year old female All Systems Review: The remainder of the systems were reviewed and are negative Physical Examination Vital Signs, Last 4 Hours Temp Pulse Resp BP 08/31/18 12:20 94 08/31/18 11:40 98.0 F 93 18 152/91 Results 08/31/18 05:09 08/31/18 05:09 Lab Results 08/31/18 08/31/18 05:09 05:09 WBC 10.1 Hgb 9.2 L Hct 28.1 L Plt Count 655 H Sodium 137 Potassium 4.2 Chloride 104 Carbon Dioxide 18 L BUN 32 H Creatinine 5.00 H Glucose 100 Calcium 8.3 L Magnesium 1.8
[2018-08-31] MEDS: niCARdipine 20 MG in 0.9 % Sodium Chloride 192 ML IVPB SCH ×6 (08:45→21:22)
[2018-08-31] MEDS: Aspirin Enteric Coated 81 MG Tablet PO SCH (08:53)
[2018-08-31] MEDS: Hydroxyurea 500 MG CAPSULE PO SCH (08:53)
[2018-08-31] MEDS: hydrALAZINE 25 MG TABLET PO SCH ×3 (09:16→20:56)
--- NOTE | 2018-08-31 16:36 | Urology Progress Note ---
Date of Encounter: 08/31/18 Time of Encounter: 16:33 - Assessment and Plan (1) Renal artery stenosis Current Visit: Yes Status: Acute (2) Atrophy of right kidney Current Visit: No Status: Acute (3) Renovascular hypertension Current Visit: Yes Status: Acute Assessment and plan: Patient seen and examined. Discussed case with primary service. Cardiology clearance completed. Plan: Will move forward with minimally invasive right nephrectomy when acute kidney injury has resolved. Anticipate case scheduled for next week as outpatient. Discussed risks benefits alternatives of right nephrectomy. All questions answered. Patient agrees to proceed. Objective Initial Vital Signs Temp Pulse Resp BP Pulse Ox 97.9 F 99 18 163/82 95 08/25/18 22:58 08/25/18 22:58 08/25/18 22:58 08/25/18 22:58 08/25/18 22:58 - Labs 08/31/18 05:09 08/31/18 05:09 Diabetes panel 08/31/18 Range/Units 05:09 Sodium 137 (136-145) mEq/L Potassium 4.2 (3.5-5.1) mEq/L Chloride 104 (98-107) mEq/L Carbon Dioxide 18 L (23-29) mEq/L BUN 32 H (6-20) mg/dL Creatinine 5.00 H (0.60-1.20) mg/dL Glucose 100 (70-105) mg/dL Calcium 8.3 L (8.6-10.3) mg/dL Calcium panel 08/31/18 Range/Units 05:09 Calcium 8.3 L (8.6-10.3) mg/dL Phosphorus 6.0 H (2.7-4.5) mg/dL Pituitary panel 08/31/18 Range/Units 05:09 Sodium 137 (136-145) mEq/L Potassium 4.2 (3.5-5.1) mEq/L Chloride 104 (98-107) mEq/L Carbon Dioxide 18 L (23-29) mEq/L BUN 32 H (6-20) mg/dL Creatinine 5.00 H (0.60-1.20) mg/dL Glucose 100 (70-105) mg/dL Calcium 8.3 L (8.6-10.3) mg/dL Adrenal panel 08/31/18 Range/Units 05:09 Sodium 137 (136-145) mEq/L Potassium 4.2 (3.5-5.1) mEq/L Chloride 104 (98-107) mEq/L Carbon Dioxide 18 L (23-29) mEq/L BUN 32 H (6-20) mg/dL Creatinine 5.00 H (0.60-1.20) mg/dL Glucose 100 (70-105) mg/dL Calcium 8.3 L (8.6-10.3) mg/dL Consult Discharge Plan - Plan Referrals: Cinthya Deleon CNP [Primary Care Provider] - 09/06/18 12:00 pm (Your appointment for August 31, 2018 1430 today has been cancelled)
--- NOTE | 2018-08-31 22:28 | Nephrology Progress Note ---
Date of Encounter: 08/31/18 Time of Encounter: 12:00 - Assessment and Plan (1) LALI (acute kidney injury) Current Visit: Yes Status: Acute SCr worse today again at 5.0 but UOP improving which is promising. Caused by hypotension with losartan and iv contrast exposure Continue IVF for now Continue to avoid nephrotoxins if possible No acute indication for territory supervisor at this time but discussed the possibility if renal fxn continues to worsen Continue to hold losartan indefinitely (2) Hypertensive emergency Current Visit: Yes Status: Acute Continue to hold antihypertensives for now Renal scan noted with split fxn L82% and R 18%, pt wants to discuss nepherectomy option since CHARLES not amenable to intervention. Urology on board for possible nephrectomy on hold till LALI resolves outpatient (3) Atrophy of right kidney Current Visit: No Status: Acute As above (4) Bilateral renal artery stenosis Current Visit: Yes Status: Chronic s/p angiogram with R side noted chronically occluded renal artery with atrophy and L side wide open renal artery per vascular surgery Subjective Interval history: Pt seen and examined feeling better today and reports better UOP. BP readings stabilized Objective - Vital Signs Vital signs: Vital Signs Temp Pulse Resp BP Pulse Ox 08/31/18 19:45 99.5 F 100 18 146/74 92 08/31/18 17:00 94 08/31/18 16:26 98.3 F 100 19 186/97 97 08/31/18 12:20 94 08/31/18 11:40 98.0 F 93 18 152/91 08/31/18 09:00 85 08/31/18 07:43 98.1 F 96 18 115/71 90 08/31/18 04:06 98.4 F 89 18 108/54 92 08/30/18 23:04 100.3 F H 94 16 86/39 94 Intake and Output 08/31/18 08/31/18 08/31/18 07:59 15:59 23:59 Intake Total 1300 / 3660 1120 / 3660 1240 / 3660 Output Total 100 / 1700 1600 / 1700 Balance 1200 / 1960 1120 / 1959 -360 / 1959 Intake: IV Fluids 1000 / 3000 1000 / 3000 1000 / 3000 0.9 % Sodium Chloride 1,000 ML 1000 / 3000 1000 / 3000 1000 / 3000 @ 150 mls/hr IVC .Q6H40M [facility] Rx #:[id number] Oral 300 / 660 120 / 660 240 / 660 Output: Urine 100 / 1700 1600 / 1700 Other: Meal Breakfast Dinner Percent of Meal Consumed 0% 15% Stool Size Small Stool Consistency formed Stool Color Brown # Bowel Movements 1 - General Appearance General appearance: Present: well-developed, well-nourished EENT: Present: ATNC, mucous membranes moist Neck: Present: no JVD, supple Respiratory: Present: clear Cardiology: Present: no edema, normal S1, normal S2 Gastrointestinal: Present: no tenderness, no guarding Integumentary: Present: warm and dry Neurologic: Present: no focal deficit Musculoskeletal: Present: no deformities Psychiatric: Present: mood/affect appropriate, cooperative - Lab 08/31/18 05:09 08/31/18 16:54 Consult Discharge Plan - Plan Referrals: Cinthya Deleon CNP [Primary Care Provider] - 09/06/18 12:00 pm (Your appointment for August 31, 2018 1430 today has been cancelled)
[2018-09-01] MEDS: 0.9 % Sodium Chloride 1,000 ML IVC SCH ×3 (03:37→17:15)
[2018-09-01] MEDS: niCARdipine 20 MG in 0.9 % Sodium Chloride 192 ML IVPB SCH ×6 (05:46→21:06)
[2018-09-01] MEDS: *HR* Heparin 5,000 UNIT/ML VIAL SQ SCH ×3 (05:58→21:02)
[2018-09-01 07:10] LABS: Basophils % 0.2 %; Eosinophils # 0.1 K/mcL (0.0-0.6); Eosinophils % 1.4 %; Hematocrit 26.8 % (35.3-44.9); Hemoglobin 8.6 g/dL (11.5-15.4); Immature Granulocytes % 0.3 % (0-4); Lymphocytes # 0.6 K/mcL (0.6-4.6); Mean Corpuscular HGB Conc 32.1 g/dL (31.6-35.5); Mean Corpuscular Hemoglobin 31.4 pg (28.0-33.3); Mean Corpuscular Volume 97.8 fL (83.0-100.0); Mean Platelet Volume 9.5 fL (9.4-12.4); Monocytes # 0.3 K/mcL (0.0-1.3); Monocytes % 3.6 %; Neutrophils # 7.6 K/mcL (1.6-8.9); Platelet Count 627 K/mcL (140-400); Red Blood Count 2.74 M/mcL (3.82-4.97); Red Cell Distribution Width 17.9 % (11.5-14.5); Segmented Neutrophils % 87.5 %; White Blood Count 8.7 K/mcL (4.3-11.1)
[2018-09-01 07:29] LABS: Calcium 8.1 mg/dL (8.6-10.3); Magnesium 1.8 mg/dL (1.6-2.6); Phosphorous 3.2 mg/dL (2.7-4.5); Potassium 4.2 mEq/L (3.5-5.1)
[2018-09-01] MEDS: hydrALAZINE 25 MG TABLET PO SCH ×3 (07:58→21:01)
[2018-09-01] MEDS: Aspirin Enteric Coated 81 MG Tablet PO SCH (07:59)
[2018-09-01] MEDS: Hydroxyurea 500 MG CAPSULE PO SCH (07:59)
--- NOTE | 2018-09-01 11:15 | Internal Med Progress Note ---
Hospitalist Progress Note - Encounter Date of Encounter: 09/01/18 Time of Encounter: 09:45 - Subjective Interval History: Patient is lying down in bed. Appears anxious. Denies any new complaints at this time. No fevers or chills. No dizziness or lightheadedness. No nausea or vomiting. Having good urine output. - Exam Vitals: Temp Pulse Resp BP Pulse Ox 99.3 F 99 17 130/84 94 09/01/18 07:23 09/01/18 07:23 09/01/18 07:23 09/01/18 07:23 09/01/18 07:23 Exam: General: Patient is alert, no acute distress, oriented x 3 Respiratory: Good respiratory effort. Normal breath sounds. No wheezing or crackles. Cardiovascular: Regular rate and rhythm. s1 and s2 normal No clicks, rubs, gallops, or murmurs. No pedal edema Abdomen: Abdomen is soft, nontender. Bowel sounds are present Musculoskeletal: Spontaneously moving all extremities Skin: warm, dry, intact. Psych: Appears anxious - Assessment and Plan (1) LALI (acute kidney injury) Current Visit: Yes Status: Acute (2) DVT prophylaxis Current Visit: Yes Status: Acute (3) Thrombocytosis Current Visit: Yes Status: Chronic (4) Pre-syncope Current Visit: Yes Status: Acute (5) Bilateral renal artery stenosis Current Visit: Yes Status: Chronic (6) Hypertensive emergency Current Visit: Yes Status: Resolved (7) Preoperative clearance Current Visit: Yes Status: Acute DVT Prophylaxis: DVT prophylaxis with subcutaneous heparin - Summary of Assessment and Plan Summary of Assessment and Plan: Acute kidney injury: Improving. Creatinine 2.64 today. Discussed with nephrology. Will continue to hold off on losartan. Blood pressure well c ontrolled with other medications. Hypertensive emergency: Resolved. Blood pressure is better controlled currently. Bilateral renal artery stenosis: Plan for nephrectomy on the right once acute kidney injury resolves. Patient is being scheduled for this procedure and coming weeks. Thrombocytosis: Chronic. Continue hydroxyurea Anemia: Hemoglobin 8.6. We will check iron, B12 and folic acid levels. Presyncope: Now resolved. Patient does have left mid ICA stenosis of 60-79%. Would recommend outpatient follow-up with vascular surgery. Moderate risk for complications. Plan to discharge patient tomorrow if renal function continues to improve - Time Spent with Patient Total time spent is greater than 50% in coordination of care (as documented) at patient's floor/unit and/or counseling patient: Internal Medicine: Result - Labs CBC & Chem 7: 09/01/18 06:24 09/01/18 06:24 Labs: Short CBC 09/01/18 Range/Units 06:24 WBC 8.7 (4.3-11.1) K/mcL Hgb 8.6 L (11.5-15.4) g/dL Hct 26.8 L (35.3-44.9) % Plt Count 627 H (140-400) K/mcL Neutrophils # 7.6 (1.6-8.9) K/mcL BMP 08/31/18 09/01/18 16:54 06:24 Sodium 136 Potassium 4.2 Chloride 108 H Carbon Dioxide 19 L BUN 32 H Creatinine 3.32 H 2.64 H Glucose 108 H Calcium 8.1 L - ABG Interpretation ABG results: PT/INR, D-dimer PT 12.4 Seconds (9.4-12.1) H 08/26/18 02:20 Consult Discharge Plan - Plan Referrals: Cinthya Deleon, YASMINE [Primary Care Provider] - 09/06/18 12:00 pm (Your appointment for August 31, 2018 1430 today has been cancelled)
[2018-09-01 12:35] LABS: % Iron Saturation 22 % (15-50); Iron 75 mcg/dL (50-170); Transferrin 248 mg/dL (203-362)
[2018-09-01 12:53] LABS: Ferritin 20 ng/mL (10-120)
[2018-09-01 12:58] LABS: Folate 9.2 ng/mL (3.0-16.0)
--- NOTE | 2018-09-01 23:30 | Nephrology Progress Note ---
Date of Encounter: 09/01/18 Time of Encounter: 17:00 - Assessment and Plan (1) LALI (acute kidney injury) Current Visit: Yes Status: Acute SCr improving at 2.64 Continue IVF but can also switch to po fluids Continue to avoid nephrotoxins if possible UOP noted at 1700cc in the past 24hrs Continue to hold losartan indefinitely (2) Hypertensive emergency Current Visit: Yes Status: Resolved Antihypertensives resume except losartan, BP readings stable form 120-150s systolic Renal scan noted with split fxn L82% and R 18%, pt wants to discuss nepherectomy option since CHARLES not amenable to intervention. Urology on board for possible nephrectomy on hold till LALI resolves outpatient (3) Atrophy of right kidney Current Visit: No Status: Acute As above (4) Bilateral renal artery stenosis Current Visit: Yes Status: Chronic s/p angiogram with R side noted chronically occluded renal artery with atrophy and L side wide open renal artery per vascular surgery Subjective Interval history: Pt seen and examined feeling better today and eager to go home. BP readings stabilized Objective - Vital Signs Vital signs: Vital Signs Temp Pulse Resp BP Pulse Ox 09/01/18 23:14 98.6 F 90 18 149/85 96 09/01/18 20:10 156/81 09/01/18 19:46 98.5 F 94 18 177/93 96 09/01/18 16:24 98.7 F 96 18 158/80 96 09/01/18 14:55 139/86 09/01/18 11:18 97.9 F 90 18 127/77 95 09/01/18 07:23 99.3 F 99 17 130/84 94 09/01/18 07:00 84 09/01/18 03:45 98.4 F 101 18 149/74 94 09/01/18 00:15 107 140/62 08/31/18 23:52 98.3 F 105 18 188/93 94 Intake and Output 09/01/18 09/01/18 09/01/18 07:59 15:59 23:59 Intake Total 1525 / 4765 3000 / 4765 240 / 4765 Output Total 350 / 2650 1300 / 2650 1000 / 2650 Balance 1175 / 2115 1700 / 2115 -760 / 2115 Intake: IV Fluids 1525 / 1525 0.9 % Sodium Chloride 1,000 ML 1525 / 1525 @ 150 mls/hr IVC .Q6H40M [facility] Rx #:[id number] Oral 3000 / 3240 240 / 3240 Output: Urine 350 / 2650 1300 / 2650 1000 / 2650 Other: Meal Lunch Dinner Percent of Meal Consumed 25% 50% # Voids 1 1 Weight 91.3 kg Patient Weight 09/01/18 23:59 Weight 91.3 kg - General Appearance General appearance: Present: well-developed, well-nourished EENT: Present: ATNC, mucous membranes moist Neck: Present: no JVD, supple Respiratory: Present: clear (ant bilat) Cardiology: Present: edema (trace LE/UE bilat), normal S1, normal S2 Gastrointestinal: Present: no tenderness, no guarding Integumentary: Present: warm and dry Neurologic: Present: no focal deficit Musculoskeletal: Present: no deformities Psychiatric: Present: mood/affect appropriate, cooperative - Lab 09/01/18 06:24 09/01/18 06:24 Consult Discharge Plan - Plan Referrals: Cinthya Deleon CNP [Primary Care Provider] - 09/06/18 12:00 pm (Your appointment for August 31, 2018 1430 today has been cancelled)
[2018-09-02 01:51] LABS: Basophils % 0.3 %; Eosinophils # 0.2 K/mcL (0.0-0.6); Eosinophils % 2.2 %; Hematocrit 26.4 % (35.3-44.9); Hemoglobin 8.6 g/dL (11.5-15.4); Lymphocytes # 0.8 K/mcL (0.6-4.6); Lymphocytes % 11.7 %; Mean Corpuscular HGB Conc 32.6 g/dL (31.6-35.5); Mean Corpuscular Hemoglobin 31.2 pg (28.0-33.3); Mean Corpuscular Volume 95.7 fL (83.0-100.0); Mean Platelet Volume 9.4 fL (9.4-12.4); Monocytes # 0.4 K/mcL (0.0-1.3); Monocytes % 5.3 %; Neutrophils # 5.4 K/mcL (1.6-8.9); Platelet Count 600 K/mcL (140-400); Red Blood Count 2.76 M/mcL (3.82-4.97); Red Cell Distribution Width 17.8 % (11.5-14.5); Segmented Neutrophils % 79.5 %; White Blood Count 6.8 K/mcL (4.3-11.1)
[2018-09-02 02:08] LABS: Calcium 8.7 mg/dL (8.6-10.3); Potassium 4.2 mEq/L (3.5-5.1)
[2018-09-02] MEDS: *HR* Heparin 5,000 UNIT/ML VIAL SQ SCH (06:16)
[2018-09-02 07:31] VITALS: BP 142/82
[2018-09-02] MEDS: hydrALAZINE 25 MG TABLET PO SCH (07:47)
[2018-09-02] MEDS: Hydroxyurea 500 MG CAPSULE PO SCH (07:47)
[2018-09-02] MEDS: Aspirin Enteric Coated 81 MG Tablet PO SCH (07:47)
--- NOTE | 2018-09-02 11:58 | Discharge Summary ---
- NOTES TO OUTPATIENT PROVIDER Notes to Outpatient Provider: Patient with a history of essential thrombocythemia, renal artery stenosis, hypertension and GERD who was hospitalized here initially with presyncope. She was noted to be severely hypertensive and had acute kidney injury. Her blood pressure was controlled with intravenous anti-hypertensive medications. Presyncope workup was mostly normal but she did have left-sided mid ICA stenosis of 60-79% for which she needs outpatient follow-up with vascular surgery. Patient does have renal artery stenosis and vascular surgery was consulted for possible intervention. Patient underwent angiogram of the left renal artery but could not have any intervention done on this. She did develop acute kidney injury believed to be related to hypotensive episodes with aggressive control of her hypertensive urgency. She was treated with IV fluids and has had improvement in her renal function. 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 This is scheduled to be done as outpatient. Patient's blood pressure is now well controlled. She will be discharged home today and will follow up with nephrology and urology as outpatient. Orders not resulted at time of discharge: Pending orders 08/29/18 07:52 NM susan perf SPECT multi [NM] Routine 09/03/18 04:00 Basic Metabolic Panel AM 0400 CBC [Complete Blood Count] [HEME] AM 0400 09/04/18 04:00 Basic Metabolic Panel AM 0400 CBC [Complete Blood Count] [HEME] AM 0400 Date of Encounter: 09/02/18 Time of Encounter: 11:53 - Discharge Diagnosis (1) Pre-syncope Priority: Primary Status: Resolved (2) Hypertensive emergency Priority: Secondary Status: Resolved (3) LALI (acute kidney injury) Priority: Secondary Status: Acute (4) Thrombocytosis Priority: Secondary Status: Chronic (5) Bilateral renal artery stenosis Priority: Secondary Status: Chronic (6) Preoperative clearance Priority: Secondary Status: Acute (7) DVT prophylaxis Priority: Secondary Status: Acute Hospital course: Ms. Curiel is a 43 year old female Patient with a history of essential thrombocythemia, renal artery stenosis, hypertension and GERD who was hospitalized here initially with presyncope. She was noted to be severely hypertensive and had acute kidney injury. Her blood pressure was controlled with intravenous anti-hypertensive medications. Presyncope workup was mostly normal but she did have left-sided mid ICA stenosis of 60-79% for which she needs outpatient follow-up with vascular surgery. Patient does have renal artery stenosis and vascular surgery was consulted for possible intervention. Patient underwent angiogram of the left renal artery but could not have any intervention done on this. She did develop acute kidney injury believed to be related to hypotensive episodes with aggressive control of her hypertensive urgency. She was treated with IV fluids and has had improvement in her renal function. 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 This is scheduled to be done as outpatient. Patient's blood pressure is now well controlled. She will be discharged home today and will follow up with nephrology and urology as outpatient. Discharge discussed with: patient - Time Spent with Patient Total time spent providing and/or coordinating discharge services: Time spent: Greater than 30 minutes (32 min) - Discharge Medications Prescriptions: New Labetalol [Trandate] 100 mg PO BID #60 tablet Calcium Carbonate [Tums] 1,000 mg PO Q4H PRN #0 tab.chew PRN Reason: Heartburn Minoxidil 5 mg PO BID #120 tablet Continued Aspirin [Lo-Dose Aspirin EC] 81 mg PO DAILY Fluticasone Propionate Nasal [Flonase] 1 spr NS DAILY PRN PRN Reason: Allergy Symptoms Hydralazine HCl 100 mg PO TID Ferrous Sulfate [Iron] 325 mg PO DAILY Hydroxyurea [Hydrea] 500 mg PO DAILY #30 capsule Omeprazole 20 mg PO DAILY PRN PRN Reason: Heartburn Spironolactone [Aldactone] 50 mg PO BID Cetirizine HCl [Allergy Relief] 10 mg PO DAILY Discontinued Losartan Potassium [Cozaar] 50 mg PO DAILY Furosemide [Lasix] 20 mg PO DAILY PRN PRN Reason: SWELLING Home Medications: Aspirin [Lo-Dose Aspirin EC] 81 mg PO DAILY 07/19/17 [History] Fluticasone Propionate Nasal [Flonase] 1 spr NS DAILY PRN 07/19/17 [History] Ferrous Sulfate [Iron] 325 mg PO DAILY 11/02/17 [History] Hydralazine HCl 100 mg PO TID 11/02/17 [History] Hydroxyurea [Hydrea] 500 mg PO DAILY #30 capsule 05/24/18 [Rx] Omeprazole 20 mg PO DAILY PRN 08/26/18 [History] Spironolactone [Aldactone] 50 mg PO BID 08/26/18 [History] Cetirizine HCl [Allergy Relief] 10 mg PO DAILY 08/27/18 [History] Calcium Carbonate [Tums] 1,000 mg PO Q4H PRN #0 tab.chew 09/02/18 [Rx] Labetalol [Trandate] 100 mg PO BID #60 tablet 09/02/18 [Rx] Minoxidil 5 mg PO BID #120 tablet 09/02/18 [Rx] Allergies/Adverse Reactions: Allergy/AdvReac Type Severity Reaction Status Date / Time hydrochlorothiazide AdvReac See Verified 08/25/18 13:35 Comments lisinopril AdvReac See Verified 08/27/18 16:28 Comments Date of admission: 08/27/18 13:22 Primary care physician: Cinthya Deleon CNP Consults: 08/26/18 11:04 Consult to Vascular Surgery [CONS] Routine Consulting Provider: V[facility] Reason for Consult: b/l Renal arterial stenosis Time Notified: 11:04 Call Completed: Yes 08/27/18 11:24 Consult to Nephrology [CONS] Routine Consulting Provider: [facility]/SHELL/ZACHERY/[facility] Reason for Consult: b/l renal arterial stenosis.. Uncontrolled HTN Time Notified: 11:25 Call Completed: Yes 08/28/18 14:32 Consult to Urology [CONS] Routine Consulting Provider: Urology [facility] Reason for Consult: severe renal artery stenosis- may require right nephrectomy Call Completed: No 08/31/18 07:50 Consult to Cardiology [CONS] Routine Comment: Consulting Provider: Cardiology Tamara Reason for Consult: preopclearance for right nephrectomy in setting of renal artery stenosis with renovascular hypertension Negative echo and stress test Call Completed: No Discharging clinician: Joelle Reyes Anticipated date of discharge: 09/02/18 - Constitutional Vitals: Temp Pulse Resp BP Pulse Ox 98.2 F 68 18 142/82 100 09/02/18 07:29 09/02/18 07:55 09/02/18 07:29 09/02/18 07:29 09/02/18 07:29 General appearance: Present: cooperative, A&O X 3, pleasant, no acute distress, answers questions appropriately Exam: General: Patient is alert, no acute distress, oriented x 3 Respiratory: Good respiratory effort. Normal breath sounds. No wheezing or crackles. Cardiovascular: Regular rate and rhythm. s1 and s2 normal No clicks, rubs, gallops, or murmurs. No pedal edema Abdomen: Abdomen is soft, nontender. Bowel sounds are present Musculoskeletal: Spontaneously moving all extremities Skin: warm, dry, intact. Neuro: Alert oriented x 3 normal cranial nerves, no focal deficits - Patient Status Disposition: Home, Self-Care Condition: Fair Functional capacity at discharge: independent ambulation Overall status at discharge: patient is progressing back to baseline - Discharge Instructions Instructions: Hypertensive Crisis (DC), Peripheral Vascular Disorders (DC), Chronic Hypertension (DC) Follow Up With: Cinthya Deleon CNP [Primary Care Provider] - 09/06/18 12:00 pm (Your appointment for August 31, 2018 1430 today has been cancelled) Abad Broussard DO [Partnered Physician] - (in 1 week) Abad Faust [Partnered Physician] - (within 1 week to schedule Right nephrectomy) - Diet and Activity Activity: increase activity as tolerated Diet: low fat, low cholesterol, low salt diet
== END 2018-09-02 12:50 | disposition home or self-care (01) | DRG 305 ==
LOC: 3BNU → SUATTDRO 22:31 → 2NNU 08-27 13:21 → SUATTDRO 08-27 13:22
PROVIDERS: ADMIT Internal Medicine; ATTEND Internal Medicine

== ENCOUNTER 2018-09-10 09:04 | Inpatient (IN) ==
[2018-09-10] MEDS ORDERED: CeFAZolin Syr 2,000MG/20 ML 2,000 MG/20 ML SYRINGE IVPB ONE (09:38)
[2018-09-10] MEDS ORDERED: Lidocaine -MPF 2% 2 ML VIAL ONE (09:40)
[2018-09-10] MEDS ORDERED: *HR* Rocuronium Bromide 50 MG/5 ML VIAL ONE (09:40)
[2018-09-10] MEDS ORDERED: *HR* Propofol 200 MG/20 ML VIAL IVP ONE (09:40)
[2018-09-10] MEDS ORDERED: Lidocaine -MPF 4% 5 ML AMPUL ONE (09:40)
[2018-09-10] MEDS ORDERED: Ondansetron 4 MG/2 ML VIAL ONE (09:40)
[2018-09-10] MEDS ORDERED: Dexamethasone 4 MG/ML VIAL ONE (09:40)
[2018-09-10] MEDS ORDERED: *HR* FentaNYL (PF) 100 MCG/2 ML VIAL ONE (09:41)
[2018-09-10] MEDS ORDERED: *HR* Midazolam HCl 2 MG/2 ML VIAL ONE (09:41)
[2018-09-10] MEDS ORDERED: Famotidine 20 MG/2 ML VIAL IVP ONE (10:04)
[2018-09-10] MEDS ORDERED: Scopolamine Patch 1.5 MG PATCH.TD72 TD ONE (10:04)
[2018-09-10] MEDS ORDERED: *HR* OxyCODONE Immed Rel 5 MG TABLET PO PRN (10:06)
[2018-09-10] MEDS ORDERED: *HR* HYDROmorphone 2 MG TABLET PO PRN (10:06)
[2018-09-10] MEDS ORDERED: *HR* Promethazine 25 MG/ML VIAL IVP PRN (10:06)
[2018-09-10] MEDS ORDERED: *HR* Labetalol 20 MG/4 ML SYRINGE IVP PRN ×2 (10:06→15:47)
[2018-09-10] MEDS ORDERED: Acetaminophen IV 1,000 MG/100 ML INFUS..BTL IVPB ONE (10:10)
[2018-09-10] MEDS ORDERED: Pregabalin 75 MG CAPSULE PO ONE (10:10)
--- NOTE | 2018-09-10 10:11 | History & Physical Report ---
Date of Encounter: 09/10/18 Time of Encounter: 10:11 24 Hour HP Update - Instructions Instructions: If the History and Physical is less than 30 days old and was completed prior to A.M. admission and or procedure and has NOT been updated on calendar day of procedure please complete this update prior to performing procedure. - Update Patient reports changes in Medical Condition: No Changes in examination, assessment, or condition: No Changes in Medication: No Preop tests/diagnostics Reviewed: Yes Surgery Remains Indicated: Yes Consent for Planned Operative Procedure(s) Verified: Yes - Pre-Operative Checklist Preoperative Checklist Indicated: Yes Prophylactic Antibiotic Ordered: Yes Home Medications Include Beta Gloria: No Beta Gloria Taken Today (Day of Surgery): No Beta Gloria Taken Yesterday (Day Prior to Surgery): No Is VTE Prophylaxis Indicated?: Yes
[2018-09-10] MEDS ORDERED: cloNIDine HCl 0.1 MG TABLET PO ONE (10:12)
--- NOTE | 2018-09-10 10:12 | Anesthesia Evaluation PreOp ---
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 Focal glomerular sclerosis s/p 2018 Bx. CKDz), Bleeding (Essential thrombocythemia), Thyroid (Hypothyroidism) Anesthesia History: No Prior Anesthetic Complications, Past Anesthesia (Appy, Excision benign neck mass/thyroid nodule, Bone marrow Bx, BTL, Kidney Bx) Alcohol Use: none Drug use: none Medications and Allergies Aspirin [Lo-Dose Aspirin EC] 81 mg PO QAM 07/19/17 [History] Hydralazine HCl 100 mg PO TID 11/02/17 [History] Spironolactone [Aldactone] 50 mg PO BID 08/26/18 [History] Labetalol [Trandate] 100 mg PO BID #60 tablet 09/02/18 [Rx] Minoxidil 5 mg PO BID #120 tablet 09/02/18 [Rx] Hydroxyurea [Hydrea] 500 mg PO QAM 09/10/18 [History] Allergy/AdvReac Type Severity Reaction Status Date / Time hydrochlorothiazide AdvReac See Verified 09/10/18 10:05 Comments lisinopril AdvReac See Verified 09/10/18 10:05 Comments - Meds/Allergy Pre-op Review Medications Reviewed: Yes Allergies Reviewed: Yes Anesthesia Results - Labs Laboratory Tests 08/26/18 08/26/18 09/02/18 02:20 02:20 01:01 WBC 6.8 Hgb 8.6 L Hct 26.4 L Plt Count 600 H INR 1.1 Sodium Potassium Chloride Carbon Dioxide BUN Creatinine Est GFR (Non-Af Amer) Glucose B-Natriuretic Peptide 232 H 09/02/18 01:01 WBC Hgb Hct Plt Count INR Sodium 132 L Potassium 4.2 Chloride 104 Carbon Dioxide 18 L BUN 24 H Creatinine 1.77 H Est GFR (Non-Af Amer) 31 L Glucose 110 H B-Natriuretic Peptide - Imaging EKG: report reviewed (90bpm -SINUS RHYTHM POSSIBLE LEFT ATRIAL ENLARGEMENT LEFT VENTRICULAR HYPERTROPHY AND ST-T CHANGE POSSIBLE SEPTAL MYOCARDIAL INFARCTION, OF INDETERMINATE AGE Electronically Signed On 08-26-2018 11:59:20 EDT by Bret Israel), image reviewed Additional studies: Nuclear Stress Test 08/30/2018 Impression: Perfusion imaging was negative for ischemia or infarct. Pharmacologic stress ECG is non diagnostic for ischemia due to baseline non-specific ST and T changes. Worsening of baseline ST abnormalities during stress is not diagnostic. Cannot rule out ischemia by ECG. The patient demonstrated a hypotensive blood pressure response to pharmacologic stress. Gated EF = 56%. Recommend clinical correlation. ECHO 08/26/2018 EV/EV echocardiogram Impressions: LVEF 60-65%. Mild concentric left ventricular hypertrophy. Moderate left ventricular diastolic dysfunction. Normal right ventricular structure and function. Moderately dilated left atrium. Mild aortic regurgitation. Mild-moderate tricuspid regurgitation. No pulmonary hypertension. Left Ventricular Wall Motion: Rest Echo Findings All wall segments showed normal motion. 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 Cecilio Baez MD
[2018-09-10] MEDS: Ringers Solution, Lactated 1,000 ML IVC SCH ×2 (10:21→13:30)
[2018-09-10 11:13] LABS: BUN/Creatinine Ratio 13 (6-26); Blood Urea Nitrogen 15 mg/dL (6-20); Calcium 9.7 mg/dL (8.6-10.3); Carbon Dioxide 22 mEq/L (23-29); Chloride 106 mEq/L (98-107); Glucose 111 mg/dL (70-105); Osmolality,Calculated 284 (280-300); Potassium 4.1 mEq/L (3.5-5.1); Sodium 136 mEq/L (136-145); eGFR For African Americans > 60 (> 60); eGFR For Non-African Americans 52 (> 60)
[2018-09-10] MEDS ORDERED: Bupivacaine/EPI 1:200k 0.25%PF 30 ML VIAL ONE (11:36)
[2018-09-10] MEDS ORDERED: *HR* HYDROMORPHONE 2 MG/ML VIAL ONE (12:53)
--- NOTE | 2018-09-10 12:57 | Operative Note ---
Date of procedure: 09/10/18 Pre-op diagnosis: Right renal artery stenosis, renovascular hypertension, atrophic right kidn Post-op diagnosis: same Procedure: Retroperitoneoscopic Right nephrectomy (adrenal sparing) Implants: none Complications: none Anesthesia: TORI Surgeon: Abad Faust Was there an preschool teacher assistant present: Yes Frog Catcher: Makenna Lindsey (No qualified surgical appliance fitter was available to scrub the case.) Estimated blood loss (cc): 50 Specimen: Right kidney (manually morcellated) Condition: stable Disposition: PACU Procedure in Detail: The patient brought the operating theater placed on table supine position. Patient identified by name and was straight general anesthetic. The patient placed in left lateral decubitus position with the right side up. The patient was prepped and draped in normal sterile fashion. Access to the retroperitoneum was made below the tip of the 12th rib taken at the subcutaneous tissues bluntly with finger into the dorsal lumbar fascia was reached. We cannot indicate fashion digitally. Hemostats were used to enter the retroperitoneal space. A balloon dilator was used to create the retroperitoneal space. A balloon trocar was placed in this entry port. Once pneumoretroperitoneum was established) Was placed under direct vision. Dissected toward the hilum the renal artery was identified and divided between Weck clips. The renal vein was identified and divided with an Endo CHIDI stapler. The distal aspect of the ureter was clipped and then the ureter was divided sharply. The fat between the kidney and the adrenal vein was taken down with accommodation of sharp and cautery dissection. The remainder the kidney was entirely freed with blunt dissection. The kidney was trapped within the bag. Using the labs Exclude the kidney was manually morcellated and brought out piece by piece. This morcellation was done under direct vision anterior entirely within the Endo Catch bag. Once the specimen had been removed. The operative area was inspected and found have excellent hemostasis. Pneumoretroperitoneum was released. All port sites at the level the skin was closed with running 4-0 Monocryl suture. This ended the operative procedure.
[2018-09-10] MEDS: *HR* HYDROmorphone (PF) 1 MG/ML SYRINGE IVP PRN ×2 (13:28→13:38)
--- NOTE | 2018-09-10 14:53 | Anesthesia Evaluation Post Op ---
Date of Encounter: 09/10/18 Time of Encounter: 14:10 - Vital Signs Vital Signs: Vital Signs/O2 Sat/Glucose, Most Recent Temp Pulse Resp BP Pulse Ox 97.8 F 79 14 159/87 95 09/10/18 14:26 09/10/18 14:26 09/10/18 14:26 09/10/18 14:26 09/10/18 14:26 - Lungs Lungs: Clear Ascult./Percussion - Airway Airway: Non-obstructed - Cardiovascular Regular Rate, Baseline Rhythm (12 Lead EKG obtained due to ST elevation on claim professional. Pt denies any chest pain or SOB. 12 Lead EKG reveals baseline rhythm prior to stress test which was negative for ischemia.) - Mental Status Mental Status: Alert & Oriented, Answers Appropriately - Pain Pain Scale: 5 (pt states she comfortable) Pain Scale used: Numeric (1 - 10) - Nausea Vomiting Nausea Vomiting: Not Present - Hydration Hydration: Ice chips Notes: 09/10/18 15:00 Pt has fully recovered from anesthetic. SV on 2L NC. VSS. Neuro exam intact. - Discharge PostOp Status: Transfer Patient to floor
[2018-09-10] MEDS ORDERED: Ondansetron 4 MG/2 ML VIAL IVP PRN (15:06)
[2018-09-10] MEDS ORDERED: Naloxone 0.4 MG/ML INJ IVP PRN (15:06)
--- NOTE | 2018-09-10 15:53 | Nephrology Consult Note ---
Date of Encounter: 09/10/18 Time of Encounter: 16:00 Assessment and Plan (1) Renovascular hypertension Current Visit: No Status: Acute s/p R Nx, will resume BP meds: labetalol and minoxidil for starters Continue prn BP meds iv as well History of Present Illness - Reason for Consult Consult date: 09/10/18 accelerated hypertension Requesting physician: Abad Faust - History of Present Illness 43 y o female with PMH of uncontrolled HTN with known R CHARLES s/p R Nx today with elevated BP readings. Renal consulted for BP managment. Last SCr noted at 1.15, GFr >60 from last hospital stay with LALI, SCr at 1.77 at discharge then. was ta angelique aldactone 50mg bid, labetalol 100mg bid, hydralazine 100mg tid and minoxidil 5mg bid on discharge for BP control Past Med Surg Social Fam HX - Past Medical History Medical history: GERD, hypertension, renal disease, thyroid disease, other Additional medical history: essential thrombocythemia, syncope episodes, Psychiatric history: anxiety, depression - Past Surgical History Surgical History: appendectomy, thyroidectomy Additional surgical history: NECK TUMOR REMOVED (NON CANCEROUS). TUBAL LIGATION - Social History Smoking Status: Never smoker Smokeless Tobacco Status: No Alcohol use: none Drug use: none - Family History Mother Adopted: No Family Member Ethnicity: Non- Living Status: Still Living Hx Family Cardiac Disorders: Yes (htn) Hx Family Neurologic Disorders: No Father Living Status: Still Living Hx Family Cardiac Disorders: Yes (htn, cva) Hx Family Neuromuscular Disorders: Yes (TIA) Medications and Allergies Aspirin [Lo-Dose Aspirin EC] 81 mg PO QAM 07/19/17 [History] Hydralazine HCl 100 mg PO TID 11/02/17 [History] Spironolactone [Aldactone] 50 mg PO BID 08/26/18 [History] Labetalol [Trandate] 100 mg PO BID #60 tablet 09/02/18 [Rx] Minoxidil 5 mg PO BID #120 tablet 09/02/18 [Rx] Hydroxyurea [Hydrea] 500 mg PO QAM 09/10/18 [History] Allergy/AdvReac Type Severity Reaction Status Date / Time hydrochlorothiazide AdvReac See Verified 09/10/18 10:05 Comments lisinopril AdvReac See Verified 09/10/18 10:05 Comments Exam - Vital Signs Vital signs: Initial Vital Signs Temp Pulse Resp BP Pulse Ox 98.3 F 105 18 199/109 97 09/10/18 09:36 09/10/18 09:36 09/10/18 09:36 09/10/18 09:36 09/10/18 09:36 Vital Signs - Last 8 Hours Temp Pulse Resp BP Pulse Ox 09/10/18 14:26 97.8 F 79 14 159/87 95 09/10/18 14:16 78 14 158/91 95 09/10/18 14:06 97.8 F 70 14 165/86 96 09/10/18 13:56 73 14 163/90 97 09/10/18 13:46 73 16 156/93 97 09/10/18 13:36 97.8 F 73 18 162/82 97 09/10/18 13:26 79 18 169/90 97 09/10/18 13:16 83 18 164/86 97 09/10/18 13:06 97.7 F 89 20 149/84 98 09/10/18 10:02 98.3 F 105 18 199/109 97 09/10/18 09:36 98.3 F 105 18 199/109 97 Intake and Output 09/09/18 09/10/18 09/10/18 23:59 07:59 15:59 Intake Total 1000 / 1000 Output Total 300 / 300 Balance 700 / 700 Intake: IV Fluids 1000 / 1000 Lactated Ringers 1,000 ML @ 25 1000 / 1000 mls/hr IVC .Q24H EDMUND Rx#: [id number] Output: Estimated Blood Loss 50 / 50 Urine Amount (Catheter) 250 / 250 Other: Weight 82.1 kg Patient Weight 09/10/18 23:59 Weight 82.1 kg Results - Lab Results 09/10/18 10:21 Most recent lab results 09/10/18 10:21 Calcium 9.7 Consult Discharge Plan - Plan Referrals: Cinthay Deleon CNP [Primary Care Provider] -
--- NOTE | 2018-09-10 16:16 | Internal Medicine Consult Note ---
Date of Encounter: 09/10/18 Time of Encounter: 15:30 - Assessment and Plan (1) Atrophy of right kidney Current Visit: Yes Status: Chronic Assessment and plan: s/p R nephrectomy by Urology, mx per primary (2) HTN (hypertension) Current Visit: No Status: Chronic Assessment and plan: resume labetalol and minoxidil PRN hydralazine added Qualifiers: Hypertension type: renovascular hypertension Qualified Code(s): I15.0 - Renovascular hypertension (3) Thrombocytosis Current Visit: No Status: Chronic Assessment and plan: resume hydroxyurea - Time Spent With Patient Total time spent is greater than 50% in coordination of care (as documented) at patient's floor/unit and/or counseling patient: 25 - 35 minutes Internal Medicine - CN: HPI - Data of Consult Patient: known to practice within the last 3 years Requesting Physician: Abad Faust - Consult Narrative Reason for consult: post R nephrectomy, hx of renovascular HTN History of present illness: Ms. Curiel is a 43 year old female with history of essential thrombocythemia, renal artery stenosis complicated by atrophic right kidney, renovascular hypertension, GERD, who was admitted after undergoing retroperitoneoscopic right nephrectomy by the Urology team. Patient has long-standing history of poorly controlled hypertension secondary to renal artery stenosis and Urology was consulted during the last admission in 08/29 for consideration of R nephrectomy. She underwent the procedure uneventfully today and is currently resting in bed. Denies any chest pain, shortness of breath, cough, sputum production, orthopnea, PND, or leg swelling. Does have minimal discomfort over the right flank region but relatively well controlled. No GI/ symptoms. Patient is afebrile and hemodynamic is stable with blood pressure of 159/87. Past Med Surg Social Fam HX - Past Medical History Medical history: GERD, hypertension, renal disease, thyroid disease, other Additional medical history: essential thrombocythemia, syncope episodes, Psychiatric history: anxiety, depression - Past Surgical History Surgical History: appendectomy, thyroidectomy Additional surgical history: NECK TUMOR REMOVED (NON CANCEROUS). TUBAL LIGATION - Social History Smoking Status: Never smoker Smokeless Tobacco Status: No Alcohol use: none Drug use: none - Family History Mother Adopted: No Family Member Ethnicity: Non- Living Status: Still Living Hx Family Cardiac Disorders: Yes (htn) Hx Family Neurologic Disorders: No Father Living Status: Still Living Hx Family Cardiac Disorders: Yes (htn, cva) Hx Family Neuromuscular Disorders: Yes (TIA) All systems: reviewed and no additional remarkable complaints except as stated Internal Medicine - CN: Meds Aspirin [Lo-Dose Aspirin EC] 81 mg PO QAM 07/19/17 [History] Hydralazine HCl 100 mg PO TID 11/02/17 [History] Spironolactone [Aldactone] 50 mg PO BID 08/26/18 [History] Labetalol [Trandate] 100 mg PO BID #60 tablet 09/02/18 [Rx] Minoxidil 5 mg PO BID #120 tablet 09/02/18 [Rx] Hydroxyurea [Hydrea] 500 mg PO QAM 09/10/18 [History] Allergy/AdvReac Type Severity Reaction Status Date / Time hydrochlorothiazide AdvReac See Verified 09/10/18 10:05 Comments lisinopril AdvReac See Verified 09/10/18 10:05 Comments Hospitalist - CN: Exam - Constitutional Vitals: Temp Pulse Resp BP Pulse Ox 97.8 F 79 14 159/87 95 09/10/18 14:26 09/10/18 14:26 09/10/18 14:26 09/10/18 14:26 09/10/18 14:26 Exam: General: Alert and oriented, not in acute distress. HEENT:EOMI, pupils equal, round and reactive. Cardiovascular:Normal S1 & S2, No JVD. Pulse regular. Lungs: clear to auscultation, no wheezes/rales Abdomen:Soft, non-tender, no rigidity. : Dressing over the R flank region c/d/i. Extremities:No deformity or swelling Neurological:Normal cognition and motor skills. Non-focal Skin:Normal color, no rash, no lesions. Pulses:Carotid and radial pulses normal +2. Rest of the physical exam is non contributory Internal Medicine - CN: Reslt - Labs CBC & Chem 7: 09/10/18 10:21 Labs: BMP 09/10/18 10:21 Sodium 136 Potassium 4.1 Chloride 106 Carbon Dioxide 22 L BUN 15 Creatinine 1.15 Glucose 111 H Calcium 9.7 Consult Discharge Plan - Plan Referrals: Cinthya Deleon UPHOLSTERY SEWER [Primary Care Provider] -
[2018-09-10] MEDS: *HR* Heparin 5,000 UNIT/ML VIAL SQ SCH (18:49)
[2018-09-10] MEDS: 0.9 % Sodium Chloride 1,000 ML IVC SCH (20:29)
[2018-09-10] MEDS: Acetaminophen IV 1,000 MG/100 ML INFUS..BTL IVPB SCH (21:14)
[2018-09-11] MEDS: Acetaminophen IV 1,000 MG/100 ML INFUS..BTL IVPB SCH ×5 (01:42→23:36)
[2018-09-11] MEDS: 0.9 % Sodium Chloride 1,000 ML IVC SCH ×5 (02:06→21:12)
[2018-09-11] MEDS: *HR* Heparin 5,000 UNIT/ML VIAL SQ SCH ×2 (06:24→17:28)
[2018-09-11 07:01] LABS: Basophils % 0.2 %; Hematocrit 25.8 % (35.3-44.9); Hemoglobin 8.3 g/dL (11.5-15.4); Immature Granulocytes % 0.5 % (0-4); Lymphocytes # 0.6 K/mcL (0.6-4.6); Lymphocytes % 6.4 %; Mean Corpuscular HGB Conc 32.2 g/dL (31.6-35.5); Mean Corpuscular Hemoglobin 31.6 pg (28.0-33.3); Mean Corpuscular Volume 98.1 fL (83.0-100.0); Mean Platelet Volume 9.5 fL (9.4-12.4); Monocytes # 0.5 K/mcL (0.0-1.3); Monocytes % 4.9 %; Neutrophils # 8.7 K/mcL (1.6-8.9); Platelet Count 574 K/mcL (140-400); Red Blood Count 2.63 M/mcL (3.82-4.97); Red Cell Distribution Width 17.1 % (11.5-14.5); White Blood Count 9.9 K/mcL (4.3-11.1)
[2018-09-11 07:18] LABS: Albumin 3.4 g/dL (3.5-5.7); Albumin/Globulin Ratio 1.5 (1.1-2.2); Bilirubin,Total 0.4 mg/dL (0.3-1.0); Calcium 7.9 mg/dL (8.6-10.3); Globulin 2.3 g/dL (2.4-3.5); Potassium 3.6 mEq/L (3.5-5.1); Total Protein 5.7 g/dL (6.4-8.9)
[2018-09-11] MEDS: Hydroxyurea 500 MG CAPSULE PO SCH (07:21)
[2018-09-11] MEDS: Aspirin Enteric Coated 81 MG Tablet PO SCH (07:21)
--- NOTE | 2018-09-11 08:40 | Internal Med Progress Note ---
Hospitalist Progress Note - Encounter Date of Encounter: 09/11/18 Time of Encounter: 09:00 - Subjective Interval History: s/p right nephrectomy overnight - Exam Vitals: Temp Pulse Resp BP Pulse Ox 98.3 F 68 17 115/73 96 09/11/18 06:21 09/11/18 06:21 09/11/18 06:21 09/11/18 06:21 09/11/18 06:21 Exam: General: Alert and oriented, not in acute distress. HEENT:EOMI, pupils equal, round and reactive. Cardiovascular:Normal S1 & S2, No JVD. Pulse regular. Lungs: clear to auscultation, no wheezes/rales Abdomen:Soft, non-tender, no rigidity. : Dressing over the R flank region c/d/i. Extremities:No deformity or swelling Neurological:Normal cognition and motor skills. Non-focal Skin:Normal color, no rash, no lesions. Pulses:Carotid and radial pulses normal +2. Rest of the physical exam is non contributory - Assessment and Plan (1) Renovascular hypertension Current Visit: Yes Status: Acute Assessment and Plan: Pt is s/p right neohrectomy for severely atrophic right kidney and unilateral renal artery stenosis We will monitor BP and adjust her home medications accordingly if she starts to become hypotensive Continue labetalol, minoxidil and hydralazine. Renal on board and appreciate recs (2) Atrophy of right kidney Current Visit: Yes Status: Acute Assessment and Plan: s/p R nephrectomy by Urology,tolerated procedure with no acute complications (3) HTN (hypertension) Current Visit: Yes Status: Acute Assessment and Plan: resume labetalol and minoxidil PRN hydralazine added (4) LALI (acute kidney injury) Current Visit: Yes Status: Acute Assessment and Plan: Continue resuscitation with IV fluids (5) Thrombocytosis Current Visit: Yes Status: Chronic Assessment and Plan: resume hydroxyurea DVT Prophylaxis: Heparin sc - Time Spent with Patient Total time spent is greater than 50% in coordination of care (as documented) at patient's floor/unit and/or counseling patient: Internal Medicine: Result - Labs CBC & Chem 7: 09/11/18 06:45 09/11/18 06:45 Labs: Short CBC 09/11/18 Range/Units 06:45 WBC 9.9 (4.3-11.1) K/mcL Hgb 8.3 L (11.5-15.4) g/dL Hct 25.8 L (35.3-44.9) % Plt Count 574 H (140-400) K/mcL Neutrophils # 8.7 (1.6-8.9) K/mcL BMP 09/10/18 09/11/18 10:21 06:45 Sodium 136 133 L Potassium 4.1 3.6 Chloride 106 103 Carbon Dioxide 22 L 20 L BUN 15 17 Creatinine 1.15 1.73 H Glucose 111 H 134 H Calcium 9.7 7.9 L Liver Function 09/11/18 Range/Units 06:45 Total Bilirubin 0.4 (0.3-1.0) mg/dL AST 11 L (13-39) Units/L ALT 6 L (7-52) Units/L Alkaline Phosphatase 40 (34-104) Units/L Albumin 3.4 L (3.5-5.7) g/dL Consult Discharge Plan - Plan Instructions: Peripheral Vascular Disorders (DC), Chronic Hypertension (DC) Referrals: Abad Faust [Partnered Physician] - (Web request sent, please call patient ) Cinthya Deleon, STRATEGIC PARTNERSHIP MANAGER [Primary Care Provider] - Prescriptions: Ciprofloxacin [Cipro] 500 mg PO BID 3 Days #6 tablet Docusate [Colace] 100 mg PO DAILY 7 Days #7 capsule Oxycodone HCl/Acetaminophen [Percocet 5-325 mg Tablet] 1 each PO Q4-6H PRN 4 Days #20 tablet PRN Reason: post operative pain (3) HTN (hypertension) Qualifiers: Hypertension type: renovascular hypertension Qualified Code(s): I15.0 - Renovascular hypertension
--- NOTE | 2018-09-11 08:53 | Discharge Summary ---
Orders not resulted at time of discharge: Pending orders 09/10/18 12:55 Surgical Pathology [PTH] Routine 09/10/18 14:00 ECG 12 lead ECG [ECG] Stat Date of Encounter: 09/11/18 Time of Encounter: 08:57 - Hospital Course Hospital course: Ms. Curiel is a 43 year old female - Time Spent with Patient Total time spent providing and/or coordinating discharge services: Labs on day of discharge: Labs from last 24 hours 09/11/18 09/11/18 09/10/18 06:45 06:45 10:21 WBC 9.9 RBC 2.63 L Hgb 8.3 L Hct 25.8 L MCV 98.1 MCH 31.6 MCHC 32.2 RDW 17.1 H Plt Count 574 H MPV 9.5 Immature Gran % 0.5 Seg Neutrophils % 88.0 Lymphocytes % 6.4 Monocytes % 4.9 Eosinophils % 0.0 Basophils % 0.2 Neutrophils # 8.7 Lymphocytes # 0.6 Monocytes # 0.5 Eosinophils # 0.0 Basophils # 0.0 Sodium 133 L 136 Potassium 3.6 4.1 Chloride 103 106 Carbon Dioxide 20 L 22 L BUN 17 15 Creatinine 1.73 H 1.15 Est GFR ( Amer) 39 L > 60 Est GFR (Non-Af Amer) 32 L 52 L BUN/Creatinine Ratio 10 13 Glucose 134 H 111 H Calculated Osmolality 280 284 Calcium 7.9 L 9.7 Total Bilirubin 0.4 AST 11 L ALT 6 L Alkaline Phosphatase 40 Serum Total Protein 5.7 L Albumin 3.4 L Globulin 2.3 L Albumin/Globulin Ratio 1.5 POC Urine HCG, Qual Blood Type Antibody Screen 09/10/18 09/10/18 09:55 09:35 WBC RBC Hgb Hct MCV MCH MCHC RDW Plt Count MPV Immature Gran % Seg Neutrophils % Lymphocytes % Monocytes % Eosinophils % Basophils % Neutrophils # Lymphocytes # Monocytes # Eosinophils # Basophils # Sodium Potassium Chloride Carbon Dioxide BUN Creatinine Est GFR ( Amer) Est GFR (Non-Af Amer) BUN/Creatinine Ratio Glucose Calculated Osmolality Calcium Total Bilirubin AST ALT Alkaline Phosphatase Serum Total Protein Albumin Globulin Albumin/Globulin Ratio POC Urine HCG, Qual Negative Blood Type A POSITIVE Antibody Screen NEGATIVE - Discharge Medications Prescriptions: No Action Aspirin [Lo-Dose Aspirin EC] 81 mg PO QAM Hydralazine HCl 100 mg PO TID Spironolactone [Aldactone] 50 mg PO BID Labetalol [Trandate] 100 mg PO BID #60 tablet Minoxidil 5 mg PO BID #120 tablet Hydroxyurea [Hydrea] 500 mg PO QAM Home Medications: Aspirin [Lo-Dose Aspirin EC] 81 mg PO QAM 07/19/17 [History] Hydralazine HCl 100 mg PO TID 11/02/17 [History] Spironolactone [Aldactone] 50 mg PO BID 08/26/18 [History] Labetalol [Trandate] 100 mg PO BID #60 tablet 09/02/18 [Rx] Minoxidil 5 mg PO BID #120 tablet 09/02/18 [Rx] Hydroxyurea [Hydrea] 500 mg PO QAM 09/10/18 [History] Ciprofloxacin [Cipro] 500 mg PO BID 3 Days #6 tablet 09/11/18 [Rx] Docusate [Colace] 100 mg PO DAILY 7 Days #7 capsule 09/11/18 [Rx] Oxycodone HCl/Acetaminophen [Percocet 5-325 mg Tablet] 1 each PO Q4-6H PRN 4 Days #20 tablet 09/11/18 [Rx] Allergies/Adverse Reactions: Allergy/AdvReac Type Severity Reaction Status Date / Time hydrochlorothiazide AdvReac See Verified 09/10/18 10:05 Comments lisinopril AdvReac See Verified 09/10/18 10:05 Comments Date of admission: 09/10/18 15:29 Primary care physician: Cinthya Deleon CNP Consults: 09/10/18 13:00 Consult to Hospitalist [CONS] Routine Consulting Provider: Hospitalist Leopoldo Reason for Consult: Medical management s/p right nephrectomy for renovascular hypertension. Call Completed: Yes Consult to Nephrology [CONS] Routine Consulting Provider: [facility] [place] Reason for Consult: Patient known to your service. Management of renovascular hypertension. Patient s/p right nephrectomy 09/10 will be discharged to home 09/11 Call Completed: Yes Exam Initial Vital Signs Temp Pulse Resp BP Pulse Ox 98.3 F 105 18 199/109 97 09/10/18 09:36 09/10/18 09:36 09/10/18 09:36 09/10/18 09:36 09/10/18 09:36 - General physical appearance Present: well developed, well nourished, no distress - Eyes Present: normal ocular movement. Absent: icteric - ENT Present: normal mucosa. Absent: no hearing loss - Neck Present: trachea midline - Respiratory Present: normal respiratory effort - Abdomen Abdomen: Present: soft, non tender, wound (Incisions clean dry and intact.) - Genitourinary Present: other (Suggs catheter in place) - Integumentary Present: no rash, no growths, no abnormal pigmentation - Neurologic Present: normal coordination. Absent: disoriented - Musculoskeletal Present: other (Normal posture. Moves extremities equally bilaterally) - Patient Status Disposition: Home, Self-Care Condition: Good Functional capacity at discharge: independent ambulation Overall status at discharge: patient is progressing back to baseline - Discharge Instructions Instructions: Peripheral Vascular Disorders (DC), Chronic Hypertension (DC) Follow Up With: Cinthya Deleon CNP [Primary Care Provider] - - Diet and Activity Activity: increase activity as tolerated Diet: advance to your usual diet
--- NOTE | 2018-09-11 09:02 | Urology Progress Note ---
Date of Encounter: 09/11/18 Time of Encounter: 08:58 - Assessment and Plan (1) Renovascular hypertension Current Visit: Yes Status: Acute Assessment and plan: Patient underwent uncomplicated right retroperitoneoscopic nephrectomy for renovascular hypertension secondary to renal artery stenosis with 100% occlusion of the right renal artery and an atrophic right kidney. Looks and feels well this morning. Expected level pain. Incisions clean dry and intact. Patient reports starting to pass gas. She is tolerating regular diet. Stable anemia. Renal functions have decreased to a GFR of 39. This level acute kidney injury is not explained by removal of a marginally functional right kidney. Nephrology is on board... Recommendations appreciated. Appreciate internal medicine assistance with management. Plan: Discontinue Suggs. Increase ambulation. Discharge to home this p.m. if clear for discharge by nephrology. (2) Atrophy of right kidney Current Visit: Yes Status: Chronic (3) Renal artery stenosis Current Visit: Yes Status: Acute Progress Note Subjective: still having pain, tolerating a regular diet, flatus, afebrile Objective Initial Vital Signs Temp Pulse Resp BP Pulse Ox 98.3 F 105 18 199/109 97 09/10/18 09:36 09/10/18 09:36 09/10/18 09:36 09/10/18 09:36 09/10/18 09:36 - General physical appearance Present: well developed, well nourished, no distress - Respiratory Present: normal respiratory effort - Abdomen Present: non tender, wound (Incision clean dry and intact) - Genitourinary Present: other (Suggs catheter in place) - Integumentary Present: no rash, no growths, no abnormal pigmentation - Musculoskeletal Present: normal posture - Psychiatric Present: oriented to time, oriented to person, oriented to place - Labs 09/11/18 06:45 09/11/18 06:45 Diabetes panel 09/10/18 09/11/18 Range/Units 10:21 06:45 Sodium 136 133 L (136-145) mEq/L Potassium 4.1 3.6 (3.5-5.1) mEq/L Chloride 106 103 (98-107) mEq/L Carbon Dioxide 22 L 20 L (23-29) mEq/L BUN 15 17 (6-20) mg/dL Creatinine 1.15 1.73 H (0.60-1.20) mg/dL Glucose 111 H 134 H (70-105) mg/dL Calcium 9.7 7.9 L (8.6-10.3) mg/dL AST 11 L (13-39) Units/L ALT 6 L (7-52) Units/L Alkaline Phosphatase 40 (34-104) Units/L Albumin 3.4 L (3.5-5.7) g/dL Calcium panel 09/10/18 09/11/18 Range/Units 10:21 06:45 Calcium 9.7 7.9 L (8.6-10.3) mg/dL Albumin 3.4 L (3.5-5.7) g/dL Pituitary panel 09/10/18 09/11/18 Range/Units 10:21 06:45 Sodium 136 133 L (136-145) mEq/L Potassium 4.1 3.6 (3.5-5.1) mEq/L Chloride 106 103 (98-107) mEq/L Carbon Dioxide 22 L 20 L (23-29) mEq/L BUN 15 17 (6-20) mg/dL Creatinine 1.15 1.73 H (0.60-1.20) mg/dL Glucose 111 H 134 H (70-105) mg/dL Calcium 9.7 7.9 L (8.6-10.3) mg/dL Adrenal panel 09/10/18 09/11/18 Range/Units 10:21 06:45 Sodium 136 133 L (136-145) mEq/L Potassium 4.1 3.6 (3.5-5.1) mEq/L Chloride 106 103 (98-107) mEq/L Carbon Dioxide 22 L 20 L (23-29) mEq/L BUN 15 17 (6-20) mg/dL Creatinine 1.15 1.73 H (0.60-1.20) mg/dL Glucose 111 H 134 H (70-105) mg/dL Calcium 9.7 7.9 L (8.6-10.3) mg/dL Total Bilirubin 0.4 (0.3-1.0) mg/dL AST 11 L (13-39) Units/L ALT 6 L (7-52) Units/L Alkaline Phosphatase 40 (34-104) Units/L Albumin 3.4 L (3.5-5.7) g/dL Consult Discharge Plan - Plan Instructions: Peripheral Vascular Disorders (DC), Chronic Hypertension (DC) Referrals: Cinthya Deleon CNP [Primary Care Provider] - Prescriptions: Ciprofloxacin [Cipro] 500 mg PO BID 3 Days #6 tablet Docusate [Colace] 100 mg PO DAILY 7 Days #7 capsule Oxycodone HCl/Acetaminophen [Percocet 5-325 mg Tablet] 1 each PO Q4-6H PRN 4 Days #20 tablet PRN Reason: post operative pain
--- NOTE | 2018-09-11 11:24 | Nephrology Progress Note ---
Date of Encounter: 09/11/18 Time of Encounter: 12:00 - Assessment and Plan (1) Renovascular hypertension Current Visit: Yes Status: Acute SCr worse at 1.73, GFR 32 from 1.15, GFR 52 more than expected likely from elevated BP readings initially Will give IVF today and discharge tomorrow if renal fxn stabilizes Continue to avoid nephrotoxins if possible Might actually need to de-escalate her Bp meds and stop minoxidil Hgb fairly stable at 8.3, was 8.6 as of september 02, will monitor (2) S/p nephrectomy Current Visit: Yes Status: Acute (3) LALI (acute kidney injury) Current Visit: No Status: Acute (4) Anemia Current Visit: No Status: Acute Qualifiers: Anemia type: unspecified type Qualified Code(s): D64.9 - Anemia, unspecified Subjective Interval history: Pt seen and examined POD #1 RNx, atrophic kidney with BP reading in the 100-120s systolic. Pt seen and examined Objective - Vital Signs Vital signs: Vital Signs Temp Pulse Resp BP Pulse Ox 09/11/18 10:33 97.4 F L 57 16 110/72 97 09/11/18 06:21 98.3 F 68 17 115/73 96 09/11/18 02:20 98.7 F 70 14 103/61 95 09/10/18 23:57 98.8 F 83 16 119/67 94 09/10/18 17:50 98.8 F 81 18 132/81 96 09/10/18 16:50 99.1 F 81 18 129/80 95 09/10/18 16:35 95 09/10/18 15:50 98.9 F 85 18 151/89 96 09/10/18 15:20 98.6 F 78 18 156/92 96 09/10/18 14:50 98.4 F 77 18 160/91 95 09/10/18 14:26 97.8 F 79 14 159/87 95 09/10/18 14:16 78 14 158/91 95 09/10/18 14:06 97.8 F 70 14 165/86 96 09/10/18 13:56 73 14 163/90 97 09/10/18 13:46 73 16 156/93 97 09/10/18 13:36 97.8 F 73 18 162/82 97 09/10/18 13:26 79 18 169/90 97 09/10/18 13:16 83 18 164/86 97 09/10/18 13:06 97.7 F 89 20 149/84 98 Intake and Output 09/10/18 09/11/18 09/11/18 23:59 07:59 15:59 Intake Total 1200 / 2220 1300 / 1420 120 / 1420 Output Total 0 / 300 700 / 700 Balance 1200 / 1920 600 / 720 120 / 720 Intake: IV Fluids 800 / 1820 1300 / 1300 0.9 % Sodium Chloride 1,000 ML 1000 / 1000 @ 100 mls/hr IVC .Q10H ED[facility]UN[facility] Rx#: [id number] Lactated Ringers 1,000 ML @ 25 600 / 1600 mls/hr IVC .Q24H [facility] Rx#: [id number] Ofirmev 1,000 mg/100 ml 1,000 100 / 100 200 / 200 mg In 100 ml @ 400 mls/hr IVPB Q6HR [facility] Rx#:[id number] Ancef 2,000 MG In 0.9 % Sodium 100 / 100 100 / 100 Chloride 100 ML @ 200 mls/hr IVPB Q8H [facility] Rx#:[id number] Oral 400 / 400 0 / 120 120 / 120 Output: Urine 0 / 0 Catheter 700 / 700 Other: Meal Dinner Breakfast Percent of Meal Consumed 50% 50% Weight 87.9 kg Patient Weight 09/11/18 23:59 Weight 87.9 kg - Lab 09/11/18 06:45 09/11/18 06:45 Most recent lab results 09/11/18 06:45 Calcium 7.9 L Consult Discharge Plan - Plan Instructions: Peripheral Vascular Disorders (DC), Chronic Hypertension (DC) Referrals: Cinthya Deleon, BUILDING DRAFTER [Primary Care Provider] - Prescriptions: Ciprofloxacin [Cipro] 500 mg PO BID 3 Days #6 tablet Docusate [Colace] 100 mg PO DAILY 7 Days #7 capsule Oxycodone HCl/Acetaminophen [Percocet 5-325 mg Tablet] 1 each PO Q4-6H PRN 4 Days #20 tablet PRN Reason: post operative pain
[2018-09-12] MEDS: 0.9 % Sodium Chloride 1,000 ML IVC SCH ×2 (04:05→09:45)
[2018-09-12] MEDS: Acetaminophen IV 1,000 MG/100 ML INFUS..BTL IVPB SCH (05:53)
[2018-09-12] MEDS: *HR* Heparin 5,000 UNIT/ML VIAL SQ SCH (05:53)
[2018-09-12] MEDS: Hydroxyurea 500 MG CAPSULE PO SCH (07:27)
[2018-09-12] MEDS: Aspirin Enteric Coated 81 MG Tablet PO SCH (07:27)
--- NOTE | 2018-09-12 09:25 | Electrocardiograph Report ---
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
--- NOTE | 2018-09-12 09:42 | Internal Med Progress Note ---
Hospitalist Progress Note - Encounter Date of Encounter: 09/12/18 Time of Encounter: 09:30 - Subjective Interval History: No acute events overnight - Exam Vitals: Temp Pulse Resp BP Pulse Ox 97.6 F 64 15 138/89 99 09/12/18 06:31 09/12/18 06:31 09/12/18 06:31 09/12/18 06:31 09/12/18 06:31 Exam: General: Alert and oriented, not in acute distress. HEENT:EOMI, pupils equal, round and reactive. Cardiovascular:Normal S1 & S2, No JVD. Pulse regular. Lungs: clear to auscultation, no wheezes/rales Abdomen:Soft, non-tender, no rigidity. : Dressing over the R flank region c/d/i. Extremities:No deformity or swelling Neurological:Normal cognition and motor skills. Non-focal Skin:Normal color, no rash, no lesions. Pulses:Carotid and radial pulses normal +2. Rest of the physical exam is non contributory - Assessment and Plan (1) Renovascular hypertension Current Visit: Yes Status: Acute Assessment and Plan: Pt is s/p right nephrectomy for severely atrophic right kidney and unilateral renal artery stenosis We will monitor BP and adjust her home medications accordingly if she starts to become hypotensive BP has been stable on labetalol and minoxidil. Possible d/c today if okayed by renal (2) Atrophy of right kidney Current Visit: Yes Status: Acute Assessment and Plan: s/p R nephrectomy by Urology,tolerated procedure with no acute complications (3) HTN (hypertension) Current Visit: Yes Status: Acute Assessment and Plan: resume labetalol and minoxidil PRN hydralazine added (4) LALI (acute kidney injury) Current Visit: Yes Status: Acute Assessment and Plan: Continue resuscitation with IV fluids (5) Thrombocytosis Current Visit: Yes Status: Chronic Assessment and Plan: resume hydroxyurea DVT Prophylaxis: Heparin sc - Time Spent with Patient Total time spent is greater than 50% in coordination of care (as documented) at patient's floor/unit and/or counseling patient: Internal Medicine: Result - Labs CBC & Chem 7: 09/12/18 14:23 09/11/18 06:45 Consult Discharge Plan - Plan Instructions: Peripheral Vascular Disorders (DC), Chronic Hypertension (DC) Referrals: Abad Faust [Partnered Physician] - (Web request sent, please call patient ) Cinthya Deleon, YASMINE [Primary Care Provider] - Prescriptions: Ciprofloxacin [Cipro] 500 mg PO BID 3 Days #6 tablet Docusate [Colace] 100 mg PO DAILY 7 Days #7 capsule Oxycodone HCl/Acetaminophen [Percocet 5-325 mg Tablet] 1 each PO Q4-6H PRN 4 Days #20 tablet PRN Reason: post operative pain (3) HTN (hypertension) Qualifiers: Hypertension type: renovascular hypertension Qualified Code(s): I15.0 - Renovascular hypertension
--- NOTE | 2018-09-12 12:48 | Urology Progress Note ---
Date of Encounter: 09/12/18 Time of Encounter: 12:46 - Assessment and Plan (1) Renovascular hypertension Current Visit: Yes Status: Acute Assessment and plan: Surgically stable. Patient remains ready for discharge from urology standpoint. Discharge written yesterday/POD #1. Renal functions still pending from this morning. Patient remains in-house for adjustment of blood pressure medication in setting of renin mediated hypertension from renal artery stenosis. No active surgical issues. Plan: Discharge to home as per hospitalist/nephrology. (2) Atrophy of right kidney Current Visit: Yes Status: Acute (3) Renal artery stenosis Current Visit: Yes Status: Acute Progress Note Subjective: feels better, tolerating a regular diet, bowel movement Objective Initial Vital Signs Temp Pulse Resp BP Pulse Ox 98.3 F 105 18 199/109 97 09/10/18 09:36 09/10/18 09:36 09/10/18 09:36 09/10/18 09:36 09/10/18 09:36 - General physical appearance Present: no distress - Respiratory Present: normal respiratory effort - Abdomen Absent: distended - Musculoskeletal Present: normal posture - Psychiatric Present: oriented to time, oriented to person, oriented to place - Labs 09/11/18 06:45 09/11/18 06:45 Consult Discharge Plan - Plan Instructions: Peripheral Vascular Disorders (DC), Chronic Hypertension (DC) Referrals: Abad Faust [Partnered Physician] - (Web request sent, please call patient ) Cinthya Deleon CNP [Primary Care Provider] - Prescriptions: Ciprofloxacin [Cipro] 500 mg PO BID 3 Days #6 tablet Docusate [Colace] 100 mg PO DAILY 7 Days #7 capsule Oxycodone HCl/Acetaminophen [Percocet 5-325 mg Tablet] 1 each PO Q4-6H PRN 4 Days #20 tablet PRN Reason: post operative pain
[2018-09-12 14:26] VITALS: BP 127/84
[2018-09-12 14:37] LABS: Basophils % 0.5 %; Eosinophils # 0.1 K/mcL (0.0-0.6); Eosinophils % 2.3 %; Hematocrit 25.3 % (35.3-44.9); Immature Granulocytes % 0.5 % (0-4); Lymphocytes % 17.3 %; Mean Corpuscular HGB Conc 31.6 g/dL (31.6-35.5); Mean Corpuscular Hemoglobin 31.3 pg (28.0-33.3); Mean Corpuscular Volume 98.8 fL (83.0-100.0); Mean Platelet Volume 9.5 fL (9.4-12.4); Monocytes # 0.3 K/mcL (0.0-1.3); Monocytes % 5.2 %; Neutrophils # 4.2 K/mcL (1.6-8.9); Platelet Count 456 K/mcL (140-400); Red Blood Count 2.56 M/mcL (3.82-4.97); Red Cell Distribution Width 17.2 % (11.5-14.5); Segmented Neutrophils % 74.2 %; White Blood Count 5.6 K/mcL (4.3-11.1)
[2018-09-12 14:54] LABS: BUN/Creatinine Ratio 14 (6-26); Blood Urea Nitrogen 16 mg/dL (6-20); Calcium 7.8 mg/dL (8.6-10.3); Carbon Dioxide 19 mEq/L (23-29); Chloride 110 mEq/L (98-107); Glucose 119 mg/dL (70-105); Osmolality,Calculated 284 (280-300); Potassium 3.8 mEq/L (3.5-5.1); Sodium 136 mEq/L (136-145); eGFR For African Americans > 60 (> 60); eGFR For Non-African Americans 52 (> 60)
--- NOTE | 2018-09-12 17:11 | Nephrology Progress Note ---
Date of Encounter: 09/12/18 Time of Encounter: 16:00 - Assessment and Plan (1) Renovascular hypertension Status: Acute SCr improved drastically to 1.14, GFR 52 with IVF UOP good per pt, documeneted at 800cc in the oast 24hrs Ok to discharge from a renal standpoint with followup in 2-[address] Broussard, BMP within a week Continue to avoid nephrotoxins if possible Might actually need to de-escalate her BP meds in outpatient Hgb fairly stable at 8.0, was 8.6 as of september 02, will monitor (2) S/p nephrectomy Status: Acute (3) LALI (acute kidney injury) Status: Acute (4) Anemia Status: Acute Qualifiers: Anemia type: unspecified type Qualified Code(s): D64.9 - Anemia, unspecified Subjective Interval history: Pt seen and examined POD 2 RNx, atrophic kidney with BP redaings stabilized around 120s systolic. Pt seen and examined feeling better today Objective - Vital Signs Vital signs: Vital Signs Temp Pulse Resp BP Pulse Ox 09/12/18 14:24 97.8 F 68 15 127/84 95 09/12/18 10:01 97.7 F 60 16 116/76 97 09/12/18 06:31 97.6 F 64 15 138/89 99 09/12/18 03:33 97.3 F L 74 16 144/84 94 09/11/18 23:40 98.0 F 70 15 133/84 93 09/11/18 19:20 98.0 F 67 16 123/75 94 Intake and Output 09/12/18 09/12/18 09/12/18 07:59 15:59 23:59 Intake Total 1850 / 3916 2066 / 3916 Output Total 800 / 800 0 / 800 Balance 1050 / 3116 2066 / 3116 Intake: IV Fluids 1850 / 3316 1466 / 3316 0.9 % Sodium Chloride 1,000 ML 1650 / 3116 1466 / 3116 @ 150 mls/hr IVC .Q6H40M [facility] Rx #:[id number] Ofirmev 1,000 mg/100 ml 1,000 200 / 200 mg In 100 ml @ 400 mls/hr IVPB Q6HR [facility] Rx#:[id number] Oral 600 / 600 Output: Urine 800 / 800 0 / 800 Other: Meal Lunch Percent of Meal Consumed 25% Stool Size Moderate Stool Consistency liquid Stool Color Brown # Bowel Movements 1 Weight 92.5 kg Patient Weight 09/12/18 23:59 Weight 92.5 kg - Lab 09/12/18 14:23 09/12/18 14:23 Most recent lab results 09/12/18 14:23 Calcium 7.8 L Consult Discharge Plan - Plan Instructions: Peripheral Vascular Disorders (DC), Chronic Hypertension (DC) Referrals: Abad Faust [Partnered Physician] - (Web request sent, please call patient ) Cinthya Deleon, YASMINE [Primary Care Provider] - Prescriptions: Ciprofloxacin [Cipro] 500 mg PO BID 3 Days #6 tablet Docusate [Colace] 100 mg PO DAILY 7 Days #7 capsule Minoxidil 2.5 mg PO BID #30 tablet Oxycodone HCl/Acetaminophen [Percocet 5-325 mg Tablet] 1 each PO Q4-6H PRN 4 Days #20 tablet PRN Reason: post operative pain Calcium Carbonate [Tums] 1,000 mg PO Q4HR PRN #14 tab.chew PRN Reason: Heartburn
== END 2018-09-12 16:15 | disposition home or self-care (01) | DRG 660 ==
LOC: SAMDAY 09:04 → 3ANU 15:29
PROVIDERS: ADMIT Urology; ATTEND Urology

== ENCOUNTER 2018-11-28 16:56 | Observation (INO) ==
--- NOTE | 2018-11-28 18:37 | Emergency Department Note ---
Disposition Clinical Impression: Suicidal ideation Disposition: Still a Patient Condition: Good Referrals: NONE,PCP [Primary Care Provider] - Forms: ED Satisfaction Letter Time of Disposition: 18:37 General Adult HPI - General Chief complaint: ED Psychiatric Symptoms Stated complaint: "pink slipped" Time Seen by Provider: 11/28/18 17:00 Source: patient, EMS Limitations: no limitations Nursing Notes Reviewed: Yes Vital Signs Reviewed: Yes - History of Present Illness HPI Narrative: The patient presents here with suicidal ideation and she is transferred for evaluation by mental health and she denies any homicidal ideation. No visual or auditory hallucinations. She does have a long-standing history of depression and does take medications. She has 2 children 20-year-old and 16-year-old daughters. She does have some medical issues including a recent left nephrectomy several weeks ago for renal artery stenosis, chronic kidney disease and thrombocytosis. Social history: No smoking, alcohol, drugs Pain Scale: 0 - Related Data Home Medications Medication Instructions Recorded Confirmed CloNIDine HCl [Kapvay] 0.1 mg PO TID 11/06/18 11/06/18 Hydroxyurea [Hydrea] 500 mg PO DAILY 11/06/18 11/06/18 Spironolactone 50 mg PO BID 11/06/18 11/06/18 hydrALAZINE [HydrALAZINE] 50 mg PO TID 11/06/18 11/06/18 Previous Rx's Medication Instructions Recorded Ondansetron ODT [Zofran ODT] 4 mg SL Q8HR PRN #14 tab.rapdis 11/06/18 Allergies Allergy/AdvReac Type Severity Reaction Status Date / Time hydrochlorothiazide AdvReac See Verified 11/28/18 15:19 Comments lisinopril AdvReac See Verified 11/28/18 15:19 Comments All systems ED: reviewed and negative except as stated. Past Medical History - Past Medical History Medical history: Reports: GERD, hypertension, renal disease, thyroid disease, other Surgical history: Reports: appendectomy, thyroidectomy Psychiatric history: Reports: anxiety, depression HOME AGENT history: Reports: no HOME AGENT history, bilateral tubal ligation - Social History Smoking Status: Never smoker Smokeless Tobacco Status: No Alcohol use: Reports: none Drug use: Reports: none Physical Exam CONSTITUTIONAL: Alert and oriented X3, well-nourished, well appearing, in no apparent distress HEAD: Normocephalic; atraumatic. EYES: PERRL, no scleral icterus. NOSE: The nose is normal in appearance without rhinorrhea RESP: Normal chest excursion with respiration; breath sounds clear and equal bilaterally; no wheezes, rhonchi, or rales CARD: Regular rhythm, without murmurs, rub or gallop ABD: Non-distended; non-tender, soft,without rigidity, rebound or guarding SKIN: Normal for age and race; warm and dry; no apparent lesions - General Limitations: no limitations General appearance: alert, in no apparent distress Course Vital Signs Temperature 97.6 F 11/28/18 17:12 Pulse Rate 62 11/28/18 17:12 Respiratory Rate 16 11/28/18 17:12 Blood Pressure 210/125 11/28/18 17:12 O2 Sat by Pulse Oximetry 98 11/28/18 17:12 Temperature 97.6 F 11/28/18 17:12 Pulse Rate 62 11/28/18 17:12 Respiratory Rate 16 11/28/18 17:12 Blood Pressure 210/125 11/28/18 17:12 O2 Sat by Pulse Oximetry 98 11/28/18 17:12 Oxygen Delivery Oxygen Delivery Room Air Medical Decision Making - MDM Narrative Medical decision making narrative: Patient does have suicidal ideation and will be evaluated by mental health and care will be transitioned to the next physician at change of shift at 7 PM 183 Care will be transitioned to Dr. Diaz at change of shift 1850 - Medical Records Medical records reviewed: Yes I reviewed the patient's medical records. - Lab Data Lab results reviewed: Yes I reviewed the patient's lab results.
--- NOTE | 2018-11-28 19:17 | Emergency Department Note ---
Disposition Clinical Impression: Suicidal ideation Hypertension Qualifiers: Hypertension type: unspecified Qualified Code(s): I10 - Essential (primary) hypertension Disposition: Admitted As Inpatient Condition: Good Referrals: NONE,PCP [Primary Care Provider] - Forms: ED Satisfaction Letter Time of Disposition: 19:47 General Adult HPI - General Chief complaint: ED Psychiatric Symptoms Stated complaint: "pink slipped" Time Seen by Provider: 11/28/18 17:00 Source: patient, EMS Limitations: no limitations - History of Present Illness Pain Scale: 0 - Related Data Home Medications Medication Instructions Recorded Confirmed CloNIDine HCl [Kapvay] 0.1 mg PO TID 11/06/18 11/06/18 Hydroxyurea [Hydrea] 500 mg PO DAILY 11/06/18 11/06/18 Spironolactone 50 mg PO BID 11/06/18 11/06/18 hydrALAZINE [HydrALAZINE] 50 mg PO TID 11/06/18 11/06/18 Previous Rx's Medication Instructions Recorded Ondansetron ODT [Zofran ODT] 4 mg SL Q8HR PRN #14 tab.rapdis 11/06/18 Allergies Allergy/AdvReac Type Severity Reaction Status Date / Time hydrochlorothiazide AdvReac See Verified 11/28/18 15:19 Comments lisinopril AdvReac See Verified 11/28/18 15:19 Comments Past Medical History - Past Medical History Medical history: Reports: GERD, hypertension, renal disease, thyroid disease, other Surgical history: Reports: appendectomy, thyroidectomy Psychiatric history: Reports: anxiety, depression TREE TRIMMER HELPER history: Reports: no TREE TRIMMER HELPER history, bilateral tubal ligation - Social History Smoking Status: Never smoker Smokeless Tobacco Status: No Alcohol use: Reports: none Drug use: Reports: none Physical Exam - General Limitations: no limitations General appearance: alert, in no apparent distress Course - Reevaluation(s) Reevaluation #1: accepted sign out from Dr. Wilks. Jazmin is medically cleared and awaiting 1A reccs. Resting comfortbaly at bedside and in no acute distress Time: 19:17 - Consultations Consultation #1: 1A would like for warner to be medically admitted so as to manage her blood pressures first. Jerrica has a history of renal artery stenosis and has taken herself off her medications for blood pressure management. Upon arrival at 1715 she was hypertensive to 215/125. We will do a hypertensive emergency workup and then admit to medicine. Treat with labetolol once a repeat blood pressure has been taken. IV placed for management and will admit to medicine. Time: 19:46 Vital Signs Temperature 97.6 F 11/28/18 17:12 Pulse Rate 62 11/28/18 17:12 Respiratory Rate 16 11/28/18 17:12 Blood Pressure 210/125 11/28/18 17:12 O2 Sat by Pulse Oximetry 98 11/28/18 17:12 Temperature 97.6 F 11/28/18 17:12 Pulse Rate 62 11/28/18 17:12 Respiratory Rate 16 11/28/18 17:12 Blood Pressure 210/125 11/28/18 17:12 O2 Sat by Pulse Oximetry 98 11/28/18 17:12 Oxygen Delivery Oxygen Delivery Room Air
[2018-11-28] MEDS ORDERED: *HR* Labetalol 20 MG/4 ML SYRINGE IVP ONE (19:47)
--- NOTE | 2018-11-28 20:16 | Emergency Department Note ---
Disposition Clinical Impression: Suicidal ideation Hypertension Qualifiers: Hypertension type: unspecified Qualified Code(s): I10 - Essential (primary) hypertension Disposition: Admitted As Inpatient Condition: Good Referrals: NONE,PCP [Primary Care Provider] - Forms: ED Satisfaction Letter Time of Disposition: 22:08 General Adult HPI - General Chief complaint: ED Psychiatric Symptoms Stated complaint: "pink slipped" Time Seen by Provider: 11/28/18 17:00 Source: patient, EMS Mode of arrival: EMS Limitations: no limitations Nursing Notes Reviewed: Yes Vital Signs Reviewed: Yes - History of Present Illness HPI Narrative: 43-year-old female with a past medical history of renal artery stenosis, hypertension, thrombocytosis, that is prescribed hydroxyzine, clonidine, hydroxyurea that reports that she has not been taking any of her medications for the last 2-3 weeks due to depression. Patient currently has an elevated blood pressure and is complaining of some epigastric and right upper quadrant abdominal pain. She also notes some lumbar back pain. Additionally she notes some chills. She denies any headache, difficulty urinating, changes in her vision, lightheadedness, weakness, numbness, tingling. Patient had her right kidney removed approximately 2 months ago. She also notes a decreasing urine output, decrease in oral intake. Pain Scale: 0 - Related Data Home Medications Medication Instructions Recorded Confirmed CloNIDine HCl [Kapvay] 0.1 mg PO TID 11/06/18 11/28/18 Hydroxyurea [Hydrea] 500 mg PO DAILY 11/06/18 11/28/18 Spironolactone 50 mg PO BID 11/06/18 11/28/18 Aspirin [Lo-Dose Aspirin EC] 81 mg PO DAILY 11/28/18 11/28/18 Hydralazine HCl 50 mg PO TID 11/28/18 11/28/18 Omeprazole [PriLOSEC] 20 mg PO DAILY 11/28/18 11/28/18 Previous Rx's Medication Instructions Recorded Ondansetron ODT [Zofran ODT] 4 mg SL Q8HR PRN #14 tab.rapdis 11/06/18 Allergies Allergy/AdvReac Type Severity Reaction Status Date / Time hydrochlorothiazide AdvReac See Verified 11/28/18 15:19 Comments lisinopril AdvReac See Verified 11/28/18 15:19 Comments Review of Systems: In addition to that documented in the HPI above, the additional ROS was obtained: Constitutional: Denies fevers Reports chills Eyes: Denies vision changes ENMT: Denies sore throat CV: Denies chest pain Resp: Denies SOB GI: Denies vomiting or diarrhea Reports nausea and epigastric/RUQ abdominal pain : Denies painful urination Reports decreased urination MSK: Denies recent trauma Skin: Denies new rashes Neuro: Denies new numbness or tingling or weakness Endocrine: Reports loss of 20lbs over the last several weeks Heme: Reports hx of thrombocytosis Past Medical History - Past Medical History Attestation: Yes The following information was validated with the patient. Medical history: Reports: GERD, hypertension, renal disease, thyroid disease, other Surgical history: Reports: appendectomy, thyroidectomy Psychiatric history: Reports: anxiety, depression TAPPET ADJUSTER history: Reports: no TAPPET ADJUSTER history, bilateral tubal ligation - Social History Smoking Status: Never smoker Smokeless Tobacco Status: No Alcohol use: Reports: none Drug use: Reports: none Physical Exam General: No acute distress. Well developed, well nourished. Head: atraumatic, normocephalic. ENT: No conjunctival injection, no scleral icterus. PERRLA. EOMI. Oropharynx non- erythematous. mucous membranes tacky. Neuro: No focal deficits, no speech deficit, no facial droop, mentating well. BUE/BLE Str 5/5. Pulm: Lungs CTAB A/P. No wheezes, rales, ronchi. Cardio: RRR no m/r/g. Chest not tender to palpation. Abd: Soft, non-distended. Normoactive bowel sounds. Mildly tender to palpation in epigastric and RUQ areas. No guarding. Non rigid. Extremities: Radial pulses 2+ debra, dorsalis pedis/posterior tibialis 1+ debra. No LE edema. No cyanosis, clubbing. Skin: warm, dry, intact. No rashes. Psych: Flat affect. Answers questions appropriately. Cooperative with exam. - General Limitations: no limitations General appearance: alert, in no apparent distress Course Vital Signs Temperature 97.6 F 11/28/18 17:12 Pulse Rate 62 11/28/18 17:12 Respiratory Rate 16 11/28/18 17:12 Blood Pressure 210/125 11/28/18 17:12 O2 Sat by Pulse Oximetry 98 11/28/18 17:12 Temperature 97.6 F 11/28/18 17:12 Pulse Rate 64 11/28/18 21:22 Respiratory Rate 20 11/28/18 21:22 Blood Pressure 183/100 11/28/18 21:22 O2 Sat by Pulse Oximetry 98 11/28/18 21:22 Oxygen Delivery Oxygen Delivery Room Air Medical Decision Making - MDM Narrative Medical decision making narrative: 43F with Pmhx of HTN, CHARLES, Stage 3 CKD, polycythemia vera who has not been taking her medications for the last 2-3 weeks due to depression that is now complaining of SI, epigastric/RUQ abdominal pain and lumbar back pain. Pt has psych-clearance labs taken at [place] [facility] and was sent here to be evaluated by 1A. 1A evaluated the patient at the bedside and determined that the pt will need to be admitted for HTN end-organ damage rule out and better BP control before they will admit her to 1A. They will see the patient on the floor tomorrow. Pt has a pink slip, is in a gown, has her belongings secured, and is with a sitter. Will obtain lipase, LFTs, and administer labetolol, pain, and nausea control. Will obtain CT scan without contrast given consideration for CKD stage 3. 2016: Pts LFTs/lipase were unremarkable, labetolol was given and pt's BP improved to 180/100. CT was negative for acute intra-abdominal pathology. Pt was admitted to Dr. Mcmanus, hospitalist, who agreed to accept the patient to his service. Results of the workup including any imaging and/or labwork was shared with the patient at bedside. Patient was given an opportunity to ask questions at bedside and all of their concerns were addressed. Patient verbalized understanding and agreement with plan of care. Pt remained stable while in the department. - Medical Records Medical records reviewed: Yes I reviewed the patient's medical records. - Lab Data Lab results reviewed: Yes I reviewed the patient's lab results. Lab Results 11/28/18 11/28/18 11/28/18 Range/Units 20:13 20:13 20:13 PT 11.8 (9.4-12.1) Seconds INR 1.0 APTT 39.5 H (26.0-36.0) Seconds Total Bilirubin 0.8 (0.3-1.0) mg/dL Direct Bilirubin 0.1 (0.0-0.2) mg/dL Indirect Bilirubin 0.7 (0.0-1.2) mg/dL AST 17 (13-39) Units/L ALT 16 (7-52) Units/L Alkaline Phosphatase 49 (34-104) Units/L Troponin I < 0.03 (< 0.04) ng/mL Serum Total Protein 7.8 (6.4-8.9) g/dL Albumin 4.8 (3.5-5.7) g/dL Globulin 3.0 (2.4-3.5) g/dL Albumin/Globulin Ratio 1.6 (1.1-2.2) Lipase 30 (11-82) Units/L - Radiology Data Radiology results reviewed: Yes I reviewed the patient's radiology results. Chest X-Ray 11/28/18 20:52 IMPRESSION: No acute cardiopulmonary disease D/ / Camilo Bailey MD / Camilo Bailey MD Interpreting Provider: Camilo Bailey MD Abdomen/Pelvis CT 11/28/18 21:01 IMPRESSION: Status post right nephrectomy. No acute process in the abdomen and pelvis. D/ / 11/28/2018 21:18:10 Camilo Bailey MD / bcarter Interpreting Provider: Camilo Bailey MD - EKG Data EKG #1 EKG attestation: Yes I reviewed and interpreted this EKG. EKG results narrative: Heart rate 65, rhythm sinus, axis normal. Intervals within normal limits. Patient meets criteria for left ventricular hypertrophy. Less than [address] elevation in leads V2 and V3 with less than [address] depression in lead V6. The ST changes are also seen on previous EKG dated 11/06/2018.
[2018-11-28] MEDS ORDERED: Morphine Sulfate 2 MG/ML SYRINGE IVP ONE (20:23)
[2018-11-28] MEDS ORDERED: Ondansetron 4 MG/2 ML VIAL IVP ONE (20:23)
[2018-11-28 20:56] LABS: Albumin 4.8 g/dL (3.5-5.7); Albumin/Globulin Ratio 1.6 (1.1-2.2); Bilirubin,Direct 0.1 mg/dL (0.0-0.2); Bilirubin,Indirect 0.7 mg/dL (0.0-1.2); Bilirubin,Total 0.8 mg/dL (0.3-1.0); Total Protein 7.8 g/dL (6.4-8.9)
[2018-11-28 21:07] LABS: Prothrombin Time 11.8 Seconds (9.4-12.1)
[2018-11-28 21:09] LABS: Activated Partial Thrombo Time 39.5 Seconds (26.0-36.0)
[2018-11-29] MEDS ORDERED: Naloxone 0.4 MG/ML INJ IVP PRN (00:03)
--- NOTE | 2018-11-29 00:49 | Internal Med History&Physical ---
Date of Encounter: 11/28/18 Time of Encounter: 23:46 Internal Medicine - H&P: HPI Chief complaint: Hypertension, suicidal ideation Admitted From: Emergency Dept Plans for Post Hospital Care: Home History of present illness: Ms. Curiel is a 43 year old female Patient presented to the emergency department with suicidal thoughts she had initially presented to [facility] emergency department but was transferred to [facility] for psychiatry evaluation. She states that she has been feeling depressed more and more lately, initially her depression started after the of her 6 years ago. She has kept it to herself but recently decided to seek professional help. She has not had previous suicide attempts. Emergency department vital signs notable for blood pressure of 210/125 CBC notable for platelet count of 695 BMP demonstrated a slightly elevated creatinine of 1.23. EKG: Sinus rhythm, rate 65, similar to previous EKGs Chest x-ray showed no acute cardiopulmonary disease Abdomen/pelvis CT demonstrated no acute process, status post right nephrectomy. In the emergency department the psychiatry 1A team was notified and evaluated the patient, but requested patient be admitted for management of her blood pressure. She received 20 mg of labetalol, and was admitted to the hospital for further management. Upon my evaluation, patient is resting comfortably in the hospital bed in no acute distress. She denies chest pain, abdominal pain, nausea, vomiting, diarrhea and constipation. She indicates that she has just not been taking care of herself lately and becoming more and more depressed. Complicated by the of her 6 years ago but also having to deal with her blood pressure issues in the loss of her kidney. She has not been eating or drinking very much either. Past Med Surg Social Fam HX - Past Medical History Medical history: GERD, hypertension, renal disease, thyroid disease, other Additional medical history: essential thrombocythemia, syncope episodes, Psychiatric history: anxiety, depression - Past Surgical History Surgical History: appendectomy, thyroidectomy Additional surgical history: NECK TUMOR REMOVED (NON CANCEROUS). TUBAL LIGATION - Social History Smoking Status: Never smoker Smokeless Tobacco Status: No Alcohol use: none Drug use: none - Family History Mother Adopted: No Family Member Ethnicity: Non- Living Status: Still Living Hx Family Cardiac Disorders: Yes (htn) Hx Family Neurologic Disorders: No Father Family Member Ethnicity: Non- Living Status: Still Living Hx Family Cardiac Disorders: Yes (htn, cva) Hx Family Respiratory Disorders: No Hx Family Cancer: No Hx Family GI Disorders: No Hx Family Endocrine Disorder: No Hx Family Neuromuscular Disorders: Yes (TIA) Hx Family Neurologic Disorders: No Hx Family HEENT Disorders: No Hx Family Autoimmune Disorders: No Internal Medicine - H&P: Meds CloNIDine HCl [Kapvay] 0.1 mg PO TID 11/06/18 [History] Hydroxyurea [Hydrea] 500 mg PO DAILY 11/06/18 [History] Ondansetron ODT [Zofran ODT] 4 mg SL Q8HR PRN #14 tab.rapdis 11/06/18 [Rx] Spironolactone 50 mg PO BID 11/06/18 [History] Aspirin [Lo-Dose Aspirin EC] 81 mg PO DAILY 11/28/18 [History] Hydralazine HCl 50 mg PO TID 11/28/18 [History] Omeprazole [PriLOSEC] 20 mg PO DAILY 11/28/18 [History] Allergy/AdvReac Type Severity Reaction Status Date / Time hydrochlorothiazide AdvReac See Verified 11/28/18 15:19 Comments lisinopril AdvReac See Verified 11/28/18 15:19 Comments All Systems PM: A 10-system review of systems was performed and is negative for pertinent findings except as documented above in the HPI. - Constitutional Vitals: Temp Pulse Resp BP Pulse Ox 98.3 F 75 16 189/99 98 11/28/18 23:30 11/28/18 23:30 11/28/18 23:30 11/28/18 23:30 11/28/18 23:30 General appearance: Present: cooperative, A&O X 3, pleasant, no acute distress, answers questions appropriately Exam: - - Head Head exam: Present: normal inspection - Eye Eye exam: Present: EOMI, normal appearance - Respiratory Respiratory exam: Present: CTAB. Absent: rales, respiratory distress, rhonchi, wheezes - Cardiovascular Cardiovascular exam: Present: RRR. Absent: diastolic murmur, systolic murmur - GI/Abdominal GI/Abdominal exam: Present: normal bowel sounds, soft. Absent: tenderness - Extremities Exam Extremities exam: Present: warm, radial pulses palpable and symmetrical. Absent: calf tenderness, pedal edema, tenderness - Neurological Exam Neurological exam: Present: alert, no focal deficits, strengths equal and symetr throughout. Absent: altered, motor sensory deficit, facial droop, speech deficit - Psychiatric Psychiatric exam: Present: flat affect, suicidal ideation - Skin Skin exam: Present: dry, normal color, warm Internal Med - H&P Results - Labs CBC & Chem 7: 11/29/18 03:53 11/29/18 03:53 Labs: Cardiac Enzymes 11/28/18 Range/Units 20:13 Troponin I < 0.03 (< 0.04) ng/mL Liver Function 11/28/18 Range/Units 20:13 Total Bilirubin 0.8 (0.3-1.0) mg/dL Direct Bilirubin 0.1 (0.0-0.2) mg/dL AST 17 (13-39) Units/L ALT 16 (7-52) Units/L Alkaline Phosphatase 49 (34-104) Units/L Albumin 4.8 (3.5-5.7) g/dL - Impressions ITS Impressions Chest X-Ray 11/28/18 20:52 IMPRESSION: No acute cardiopulmonary disease D/ / Camilo Bailey MD / Camilo Bailey MD Interpreting Provider: Camilo Bailey MD Abdomen/Pelvis CT 11/28/18 21:01 IMPRESSION: Status post right nephrectomy. No acute process in the abdomen and pelvis. D/ / 11/28/2018 21:18:10 Camilo Bailey MD / [email or web address] Interpreting Provider: Camilo Bailey MD - Assessment and Plan (1) Suicidal ideation Current Visit: Yes Status: Acute Assessment and plan: Patient feeling depressed and having suicidal thoughts. She has never sought treatment previously. [place] slipped Psychiatry evaluation in the morning Patient sitter at bedside Suicide precautions (2) HTN (hypertension) Current Visit: Yes Status: Acute Assessment and plan: Blood pressure elevated in the emergency department at 210/125 initially. She does have history of hypertension, secondary to renal artery stenosis. She has received 20 mg of labetalol with improvement in her blood pressure. Continue to monitor Continue IV hydralazine as needed Continue home meds at discharge Qualifiers: Hypertension type: unspecified Qualified Code(s): I10 - Essential (primary) hypertension (3) LALI (acute kidney injury) Current Visit: No Status: Acute Assessment and plan: Slight elevation of creatinine on initial labs. Improved with repeat labs. Patient has history of recent nephrectomy. Continue to monitor (4) Thrombocytosis Current Visit: No Status: Chronic Assessment and plan: Patient follows up with oncology/hematology. Takes hydroxyurea at home. Continue home meds (5) DVT prophylaxis Current Visit: No Status: Acute Assessment and plan: Subcutaneous heparin - Time Spent With Patient Total time spent is greater than 50% in coordination of care (as documented) at patient's floor/unit and/or counseling patient:
[2018-11-29] MEDS: Ondansetron 4 MG/2 ML VIAL IVP PRN ×2 (02:34→10:19)
[2018-11-29 04:30] LABS: Hemoglobin 12.8 g/dL (11.5-15.4); Mean Corpuscular HGB Conc 33.7 g/dL (31.6-35.5); Mean Corpuscular Hemoglobin 33.4 pg (28.0-33.3); Mean Corpuscular Volume 99.2 fL (83.0-100.0); Mean Platelet Volume 9.8 fL (9.4-12.4); Platelet Count 695 K/mcL (140-400); Red Blood Count 3.83 M/mcL (3.82-4.97); Red Cell Distribution Width 13.8 % (11.5-14.5); White Blood Count 9.8 K/mcL (4.3-11.1)
[2018-11-29 04:49] LABS: BUN/Creatinine Ratio 11 (6-26); Blood Urea Nitrogen 12 mg/dL (6-20); Calcium 9.4 mg/dL (8.6-10.3); Carbon Dioxide 22 mEq/L (23-29); Chloride 103 mEq/L (98-107); Glucose 120 mg/dL (70-105); Osmolality,Calculated 285 (280-300); Potassium 3.1 mEq/L (3.5-5.1); Sodium 137 mEq/L (136-145); eGFR For African Americans > 60 (> 60); eGFR For Non-African Americans 53 (> 60)
[2018-11-29] MEDS: Acetaminophen 325 MG TABLET PO PRN ×2 (05:00→08:36)
[2018-11-29] MEDS ORDERED: Potassium Chloride Elixir 20 MEQ/15 ML UDC PO ONE ×2 (05:19→07:39)
[2018-11-29 05:37] LABS: Magnesium 1.7 mg/dL (1.6-2.6)
[2018-11-29] MEDS ORDERED: *HR* Heparin 5,000 UNIT/ML VIAL SQ SCH (06:00)
[2018-11-29] MEDS: hydrALAZINE 25 MG TABLET PO SCH ×2 (08:37→14:44)
[2018-11-29] MEDS: cloNIDine HCl 0.1 MG TABLET PO SCH ×2 (08:37→14:44)
[2018-11-29] MEDS ORDERED: amLODIPine 5 MG TABLET PO SCH (09:00)
[2018-11-29] MEDS ORDERED: Aspirin Enteric Coated 81 MG Tablet PO SCH (09:00)
[2018-11-29] MEDS ORDERED: Hydroxyurea 500 MG CAPSULE PO SCH (09:00)
--- NOTE | 2018-11-29 09:40 | Discharge Summary ---
- NOTES TO OUTPATIENT PROVIDER Notes to Outpatient Provider: Patient was admitted for suicidal ideation and hypertensive urgency. Her blood pressure normalized after starting her home regimen. She needs to follow-up with psychiatry after getting the shot from psychiatric floor Date of Encounter: 11/29/18 Time of Encounter: 09:00 - Discharge Diagnosis (1) Suicidal ideation Priority: Primary Status: Acute (2) HTN (hypertension) Priority: Secondary Status: Resolved Qualifiers: Hypertension type: unspecified Qualified Code(s): I10 - Essential (primary) hypertension (3) LALI (acute kidney injury) Priority: Secondary Status: Resolved (4) Thrombocytosis Priority: Secondary Status: Chronic (5) DVT prophylaxis Priority: Secondary Status: Acute (6) Chronic kidney disease (CKD), stage III (moderate) Priority: Secondary Status: Chronic Hospital course: Ms. Curiel is a 43 year old female with history of renal artery stenosis status post right nephrectomy, thrombocytosis, HTN, Pinky also with suicidal ideation. Patient was admitted initially to general medicine floor for hypertensive urgency as she missed her home medication for a few days before presentation. Her blood pressure normalized at discharge. She was evaluated by psychiatry as she would be discharged to psychiatric floor. Vision is stable at discharge. Discharge discussed with: patient - Time Spent with Patient Total time spent providing and/or coordinating discharge services: 20 minutes - Discharge Medications Prescriptions: Continued Hydralazine HCl 50 mg PO TID Omeprazole [PriLOSEC] 20 mg PO DAILY Aspirin [Lo-Dose Aspirin EC] 81 mg PO DAILY Hydroxyurea [Hydrea] 500 mg PO DAILY Spironolactone 50 mg PO BID CloNIDine HCl [Kapvay] 0.1 mg PO TID Ondansetron ODT [Zofran ODT] 4 mg SL Q8HR PRN #14 tab.rapdis PRN Reason: Nausea Home Medications: CloNIDine HCl [Kapvay] 0.1 mg PO TID 11/06/18 [History] Hydroxyurea [Hydrea] 500 mg PO DAILY 11/06/18 [History] Ondansetron ODT [Zofran ODT] 4 mg SL Q8HR PRN #14 tab.rapdis 11/06/18 [Rx] Spironolactone 50 mg PO BID 11/06/18 [History] Aspirin [Lo-Dose Aspirin EC] 81 mg PO DAILY 11/28/18 [History] Hydralazine HCl 50 mg PO TID 11/28/18 [History] Omeprazole [PriLOSEC] 20 mg PO DAILY 11/28/18 [History] Allergies/Adverse Reactions: Allergy/AdvReac Type Severity Reaction Status Date / Time hydrochlorothiazide AdvReac See Verified 11/28/18 15:19 Comments lisinopril AdvReac See Verified 11/28/18 15:19 Comments Date of admission: 11/28/18 22:45 Primary care physician: PCP NONE Consults: 11/28/18 19:49 Consult to Psychiatry [CONS] Stat Consulting Provider: Psychiatry Caret Reason consult: Sitter/1:1 Other reason and/or additional details: SI [place] Slip initiated date and time: from [facility] Time Notified: 19:49 Call Completed: Yes - Constitutional Vitals: Temp Pulse Resp BP Pulse Ox 98.4 F 76 16 144/93 96 11/29/18 06:17 11/29/18 06:17 11/29/18 06:17 11/29/18 08:42 11/29/18 06:17 General appearance: Present: cooperative, A&O X 3, pleasant, no acute distress, answers questions appropriately Exam: General: Patient is alert, oriented 3. Head: Atraumatic, normal inspection, normocephalic. Eye: EOMI, PERRLA, no scleral icterus noted. ENT: Mucous membranes moist. Neck: Normal inspection, no meningismus. Respiratory: No respiratory distress, rhonchi, or wheezes noted. Cardiovascular: Regular rate and regular rhythm. GI: Soft, nondistended, normal bowel sounds. Extremities:No joint swelling, pedal edema, or tenderness noted. Neurological: Alert, oriented 3, no focal deficits. Psychiatric: normal affect, normal mood. Skin: Dry, intact, warm. Normal color. No rashes. - Patient Status Disposition: Transfer Psychiatric Hosp Functional capacity at discharge: independent ambulation Overall status at discharge: patient is back to baseline - Discharge Instructions Follow Up With: NONE,PCP [Primary Care Provider] - - Diet and Activity Activity: increase activity as tolerated Diet: low salt diet
[2018-11-29 15:36] VITALS: BP 145/85
--- NOTE | 2018-11-30 09:49 | Electrocardiograph Report ---
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
== END 2018-11-29 17:00 ==
LOC: EMEROOARM 16:56 → 2ANU 16:56 → SUATTDRO 22:45 → 2ANU 23:11
PROVIDERS: ADMIT Family Medicine; ATTEND Internal Medicine

== ENCOUNTER 2018-11-29 17:04 | Inpatient (IN) ==
[2018-11-29] MEDS ORDERED: traZODone 50 MG TABLET PO PRN (17:31)
[2018-11-29] MEDS ORDERED: MOM Conc 10 ML UD.LIQ PO PRN (17:31)
[2018-11-29] MEDS ORDERED: Haloperidol Lactate 5 MG/ML VIAL IM PRN (17:31)
[2018-11-29] MEDS ORDERED: Ibuprofen 400 MG TABLET PO PRN (17:31)
[2018-11-29] MEDS ORDERED: Mag Hydrox/Al Hydrox/Simeth 30 ML UDC PO PRN (17:31)
[2018-11-29] MEDS ORDERED: *HR* LORazepam 2 MG/ML VIAL IM PRN (17:31)
[2018-11-29] MEDS ORDERED: *HR* LORazepam 1 MG TABLET PO PRN (17:31)
[2018-11-29] MEDS: hydrOXYzine pamoate 25 MG CAPSULE PO PRN (21:08)
--- NOTE | 2018-11-30 16:23 | Psychiatry History & Physical ---
Date of Encounter: 11/30/18 Time of Encounter: 15:45 History of Present Illness Patient Stated Chief Complaint: "A little better than I was." Medicare Admission Attestation: For traditional Medicare patients the provided hospital inpatient services are reasonable and necessary and in the case of services not specified as inpatient-only under 42 CFR 419.22 (n), that they are appropriately provided as inpatient services in accordance 42 CFR 412.3. For Critical Access Hospital the patient may reasonably be expected to be discharged or transferred to a hospital within 96 hours after admission to the Critical Access Hospital. Admitted From: Intrahospital Transfer Plans for Post Hospital Care: Home History of Present Illness: Ms. Curiel is a 43 year old female who was admitted to after being medically managed on the medical floor for renal artery stenosis and hypertension. When patient came to the emergency room, she reported being depressed and having suicidal thoughts. She was treated medical on the medical floor and placed on a 1:1 for safety. Once medically cleared, she was admitted to for evaluation and treatment. Patient tells me today that she is doing better than she had been. She reports that she has been depressed the last 6 years. Her was diagnosed 6 years ago with metastatic bladder cancer and 5 years ago. 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 She states that she has never bounced back since he . She said she used "have good days and bad days and pull myself out of it, but lately all days are bad." She has never been had mental health treatment ever been on medications. She reports that more often than not for the past couple months since having her kidney removed, she's had depressive ruminations, does not like to do things that she used to like to do, has low energy, has had decreased appetite, poor focus, attention and concentration, and often times feels hopeless and helpless. She states that she sleeping much more than she usually sleeps and just does not feel like doing anything. She states that since she came to the unit she did eat and her hygiene improved, which makes her feel better. But she knows that she still needs some kind of treatment. She denies any impulsivity, grandiosity, going days and days without need for sleep nor fe eling on top of the world. She denies any auditory or visual hallucinations, paranoia, any mind reading or getting special messages from the TV or radio. She has additional stress from having 2 teenage daughters that she is raising on her own, but feels they are secure and they are doing well. She states that she has known she is needed help for a while but never took initiative to get the he lp and did not know where to turn. She is requesting evaluation and possible medication management. Her medical issues pose a complication in the medication selection for treatment. She had her right kidney removed 2 months ago secondary to having stage 3 renal disease and having renal artery stenosis. These medical conditions have made her depression worse too. The renal disease is what has caused her hypertension. I discussed with her medications that are more clear to the liver in order not to damage or put stress on her kidneys. 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 I explained to her that her thyroid may contribute to her mood/depression and low energy. She will be monitored while on the unit and outpatient follow-up will be set. Past Med Surg Social Fam HX - Past Medical History Source: patient Medical history: GERD, hypertension, renal disease (Right Kidney removed 2 months ago. Stage 3 renal disease. 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 ) Current living situation: Home - Independent Activity Level: Independent ambulation Recent Out of Country Travel Within the Last 8 Weeks: No Exposure or Possible Exposure to Illness During Travel: No - Family History Mother Adopted: No Family Member Ethnicity: Non- Living Status: Still Living Hx Family Cardiac Disorders: Yes (htn) Hx Family Neurologic Disorders: No Father Family Member Ethnicity: Non- Living Status: Still Living Hx Family Cardiac Disorders: Yes (htn, cva) Hx Family Respiratory Disorders: No Hx Family Cancer: No Hx Family GI Disorders: No Hx Family Genitourinary Disorders: No Hx Family Endocrine Disorder: No Hx Family Musculoskeletal Disorders: No Hx Family Neuromuscular Disorders: Yes (TIA) Hx Family Neurologic Disorders: No Hx Family HEENT Disorders: No Hx Family Autoimmune Disorders: No Hx Family Reproductive Disorders: No Hx Family Psychosocial Disorders: No Hx Family Medical Disorders: No Medications & Allergies Hydroxyurea [Hydrea] 500 mg PO DAILY 11/06/18 [History] Spironolactone 50 mg PO BID 11/06/18 [History] Aspirin [Lo-Dose Aspirin EC] 81 mg PO DAILY 11/28/18 [History] Hydralazine HCl 50 mg PO TID 11/28/18 [History] Omeprazole [PriLOSEC] 20 mg PO BID 11/28/18 [History] cloNIDine HCl [CloNIDine HCl] 0.1 mg PO TID 11/29/18 [History] Allergy/AdvReac Type Severity Reaction Status Date / Time hydrochlorothiazide AdvReac See Verified 11/28/18 15:19 Comments lisinopril AdvReac See Verified 11/28/18 15:19 Comments Exam - HEENT Head exam IM: Present: atraumatic Eye exam IM: Present: EOMI - Neurological Neurological exam: Present: CN II-XII intact (per ED eval) - Constitutional Vitals: Temp Pulse Resp BP Pulse Ox 97.6 F 77 18 137/90 99 11/30/18 09:00 11/30/18 09:00 11/30/18 09:00 11/30/18 09:00 11/30/18 09:00 General appearance: age & developmentally appropriate, well-groomed - Musculoskeletal Gait: normal Station: relaxed Strength & Tone: normal for patient - Psychiatric Patient Orientation: Yes Person, Yes Time, Yes Place, Yes Circumstance Level of alertness: Alert Behavior: cooperative, nervous Psychomotor activity: Normal Eye Contact: Maintains Eye Contact Mood Description: Depressed Affect description: congruent with mood Speech Volume: Normal Speech pattern: normal rate, normal rhythm, normal tone, fluent Language & Vocabulary: consistent with education Thought Process: Intact, Logical, Linear, Goal Oriented Thought Content: Yes Intact Attention Span Ability: Capable of Focused Attention Memory Description: Grossly Intact Patient Reliability: Reliable Historian Fund of knowledge: Yes average Intelligence Estimate: Average Judgment: Fair Insight: Partial Assessment and Plan (1) Severe major depression, single episode, without psychotic features Current visit: Yes Status: Acute Plan: Admit inpatient for safety and stabilization, Close observation, Suicide Precautions per unit protocol, Encourage participation in unit milieu, Group Therapy, Monitor sleep, Monitor appetite Risks, benefits, side effects, alternatives discussed w/pt: Yes (Discussed stating Prozac targeting depression. R/B/SE explained) Patient agreeable to treatment: Yes (Additional lab to check thyroid.) Estimated Length of Stay (Days): 5
[2018-11-30] MEDS: Aspirin Enteric Coated 81 MG Tablet PO SCH (17:36)
[2018-11-30] MEDS: Hydroxyurea 500 MG CAPSULE PO SCH (18:36)
[2018-11-30] MEDS: hydrALAZINE 25 MG TABLET PO SCH (20:48)
[2018-11-30] MEDS: hydrOXYzine pamoate 25 MG CAPSULE PO PRN (20:48)
[2018-11-30] MEDS: cloNIDine HCl 0.1 MG TABLET PO SCH (20:48)
[2018-12-01] MEDS: Aspirin Enteric Coated 81 MG Tablet PO SCH (09:25)
[2018-12-01] MEDS: Hydroxyurea 500 MG CAPSULE PO SCH (09:25)
[2018-12-01] MEDS: hydrALAZINE 25 MG TABLET PO SCH ×3 (09:25→21:21)
[2018-12-01] MEDS: FLUoxetine 20 MG CAPSULE PO SCH (09:26)
[2018-12-01] MEDS: cloNIDine HCl 0.1 MG TABLET PO SCH ×3 (09:26→21:21)
--- NOTE | 2018-12-01 14:18 | Psychiatry Progress Note ---
Date of Encounter: 12/01/18 Time of Encounter: 14:10 Subjective Interval history: Ms. Jerry was seen in the dining room this morning. Had extensive discussion about what brought her in and how she is feeling today. She was that she has had depression for close to 6 years and after her from cancer, her depression worsened. Reports most of the time she eas able to bounce back up , would have lows but would return to baseline without any medical management. States that for the past 4 months her mood had stayed low, was unable to take care of herself, was losing weight and not eating, was sleeping too much due to ongoing depression. Since her admission she reports that her depression has diminished. She is hopeful, her appetite has returned and she is sleeping well. Does have goals of working as she is to stay at home alone with her daughter. Does state that her underlying medical history of kidney disease has been very stressful for her and recently had a nephrectomy. She plans to continue taking care of her health and seek counseling outpatient. She is denying suicidal or homicidal ideation. Review of Systems Constitutional: Denies: fever, chills, weakness Ears, Nose, Throat: Denies: congestion, dysphagia Cardiovascular: Denies: chest pain, palpitations, dyspnea on exertion Respiratory: Denies: cough, dyspnea, wheezes Gastrointestinal: Denies: abdominal pain, nausea, vomiting Genitourinary male: Denies: urgency, dysuria, frequency Integumentary: Denies: rash, lesions Neurological: Denies: weakness, numbness Psychiatric: Reports: depression, anxiety. Denies: suicidal ideation, homicidal ideation Results - Vital Signs Vital Signs: Temp Pulse Resp BP Pulse Ox 97.5 F L 64 18 137/88 99 12/01/18 09:00 12/01/18 09:00 12/01/18 09:00 12/01/18 09:00 12/01/18 09:00 - Labs Labs: Laboratory Results - last 24 hr 12/01/18 09:21 TSH 2.882 Assessment and Plan (1) Severe major depression, single episode, without psychotic features Current visit: Yes Status: Acute Plan: Continue hospitalization, Encourage participation in unit milieu, Group Therapy, Monitor sleep, Monitor appetite Additional Plan: Recommend continuing Prozac with hydroxyzine as needed for episodes of anxiety. Would benefit from outpatient counseling. Risks, benefits, side effects, alternatives discussed w/pt: Yes (Discussed s tating Prozac targeting depression. R/B/SE explained) Patient agreeable to treatment: Yes (Additional lab to check thyroid.) - Attending Attestation I examined this patient and my medical decision-making was reviewed with the Resident Physician. I agree with the documented findings, disposition and treatment plan as described except to the extent set forth below. Patient is improving. She tells me she is sleeping well and denies any side effects of her medications. We spoke again about monitoring her renal function with the start of this new medication. She verbalized understanding. She denies SI. She is hopeful to be discharged on Thursday to go home to her daughters. Psychiatry Exam - Constitutional Vitals: Temp Pulse Resp BP Pulse Ox 97.5 F L 64 18 137/88 99 12/01/18 09:00 12/01/18 09:00 12/01/18 09:00 12/01/18 09:00 12/01/18 09:00 General appearance: age & developmentally appropriate - Musculoskeletal Gait: normal Station: relaxed Strength & Tone: normal for patient - Psychiatric Patient Orientation: Yes Person, Yes Time, Yes Place Level of alertness: Alert Behavior: calm, cooperative Psychomotor activity: Normal Eye Contact: Maintains Eye Contact Mood Description: Euthymic/stable Affect description: congruent with mood Speech Volume: Normal Speech pattern: normal rate, appropriate, clear, coherent Language & Vocabulary: consistent with education Thought Process: Intact Thought Content: Yes Intact, No Suicidal ideation, No Homicidal ideation Perceptual Disturbances: Yes Reacting to internal stimuli Attention Span Ability: Capable of Focused Attention Memory Description: Grossly Intact Patient Reliability: Reliable Historian Fund of knowledge: Yes average Intelligence Estimate: Average Judgment: Fair Insight: Full
[2018-12-01] MEDS: hydrOXYzine pamoate 25 MG CAPSULE PO PRN (21:21)
[2018-12-02] MEDS: cloNIDine HCl 0.1 MG TABLET PO SCH ×3 (08:44→21:25)
[2018-12-02] MEDS: Aspirin Enteric Coated 81 MG Tablet PO SCH (08:44)
[2018-12-02] MEDS: Hydroxyurea 500 MG CAPSULE PO SCH (08:45)
[2018-12-02] MEDS: hydrALAZINE 25 MG TABLET PO SCH ×3 (08:45→21:24)
[2018-12-02] MEDS: FLUoxetine 20 MG CAPSULE PO SCH (08:45)
--- NOTE | 2018-12-02 10:32 | Psychiatry Progress Note ---
Date of Encounter: 12/02/18 Time of Encounter: 10:35 Subjective Interval history: Ms. Choi was seen in the midline wound is morning. She is excited to be discharged possibly tomorrow and excited to see her 2 daughters. She reports she spoke with her 2 daughters over the phone yesterday and they are doing well. She would like to consider having a job after discharge because it will give her a routine something to look forward to. She states that she will continue taking her medication for her high blood pressure and has no further thoughts of suicide ideation. She reports that she wants to be there for her kids and was taking care of herself as well. She did complain about having some difficulty falling asleep last night reports that she was worrying about everything which was keeping her awake. Review of Systems Constitutional: Denies: fever, chills, weakness Ears, Nose, Throat: Denies: ear pain, congestion, dysphagia Cardiovascular: Denies: chest pain, palpitations, dyspnea on exertion Respiratory: Denies: cough, dyspnea, wheezes Gastrointestinal: Denies: abdominal pain, nausea, vomiting Genitourinary male: Denies: dysuria Genitourinary female: Denies: hematuria Musculoskeletal: Denies: back pain, joint swelling Integumentary: Denies: rash, lesions Neurological: Denies: headache, weakness Psychiatric: Reports: depression, anxiety, abnormal sleep pattern. Denies: suicidal ideation, homicidal ideation Results - Vital Signs Vital Signs: Temp Pulse Resp BP Pulse Ox 97.3 F L 65 16 134/85 98 12/01/18 21:00 12/01/18 21:00 12/01/18 21:00 12/01/18 21:00 12/01/18 21:00 - Labs Labs: Laboratory Results - last 24 hr 12/01/18 09:21 TSH 2.882 Assessment and Plan (1) Severe major depression, single episode, without psychotic features Current visit: Yes Status: Acute Plan: Continue hospitalization, Close observation, Monitor sleep Additional Plan: Recommend continuing Prozac with hydroxyzine as needed for episodes of anxiety. Would benefit from outpatient counseling. We will check CMP given her history of renal impairment with recent nephrectomy. Risks, benefits, side effects, alternatives discussed w/pt: Yes (Discussed stating Prozac targeting depression. R/B/SE explained) Patient agreeable to treatment: Yes (Additional lab to check thyroid.) - Attending Attestation I examined this patient and my medical decision-making was reviewed with the Resident Physician. I agree with the documented findings, disposition and treatment plan as described except to the extent set forth below. Patient is improving. She is tolerating the Prozac. We will check her CMP. Encourage continued group attendance. Therapists working on linkage. No suicidal or homicidal thoughts, ideations, or plans. Plan on DC tomorrow. Psychiatry Exam - Constitutional Vitals: Temp Pulse Resp BP Pulse Ox 97.3 F L 65 16 134/85 98 12/01/18 21:00 12/01/18 21:00 12/01/18 21:00 12/01/18 21:00 12/01/18 21:00 General appearance: disheveled - Musculoskeletal Gait: normal Station: relaxed - Psychiatric Patient Orientation: Yes Person, Yes Time, Yes Place Level of alertness: Alert, Follows commands Behavior: calm, anxious Psychomotor activity: Normal Eye Contact: Maintains Eye Contact Mood Description: Euthymic/stable Affect description: congruent with mood Speech Volume: Normal, Soft/Quiet Speech pattern: normal rate, coherent Language & Vocabulary: consistent with education Thought Process: Intact, Tangential Thought Content: No Suicidal ideation, No Homicidal ideation, Yes Preoccupation (Worried about whats to come) Perceptual Disturbances: Yes Reacting to internal stimuli Attention Span Ability: Capable of Focused Attention Memory Description: Immediate Intact Patient Reliability: Reliable Historian Fund of knowledge: Yes average Intelligence Estimate: Average Judgment: Fair Insight: Partial
[2018-12-02 11:50] LABS: Albumin 4.3 g/dL (3.5-5.7); Albumin/Globulin Ratio 1.5 (1.1-2.2); Bilirubin,Total 0.4 mg/dL (0.3-1.0); Calcium 9.3 mg/dL (8.6-10.3); Globulin 2.8 g/dL (2.4-3.5); Potassium 4.5 mEq/L (3.5-5.1); Total Protein 7.1 g/dL (6.4-8.9)
[2018-12-02] MEDS: hydrOXYzine pamoate 25 MG CAPSULE PO PRN (21:25)
[2018-12-03] MEDS: Aspirin Enteric Coated 81 MG Tablet PO SCH (08:49)
[2018-12-03] MEDS: FLUoxetine 20 MG CAPSULE PO SCH (08:50)
[2018-12-03] MEDS: cloNIDine HCl 0.1 MG TABLET PO SCH ×2 (08:50→15:03)
[2018-12-03] MEDS: hydrALAZINE 25 MG TABLET PO SCH ×2 (08:50→15:04)
[2018-12-03] MEDS: Hydroxyurea 500 MG CAPSULE PO SCH (08:50)
--- NOTE | 2018-12-03 09:15 | Discharge Summary ---
Date of Encounter: 12/03/18 Time of Encounter: 07:30 Diagnosis - Discharge Diagnosis (1) Severe major depression, single episode, without psychotic features Status: Acute Medications - Discharge Medications Prescriptions: FLUoxetine HCl [Prozac] 20 mg PO DAILY #15 capsule Transmission Status: Pending to [facility] traZODone [TraZODone] 50 mg PO HS PRN #15 tablet PRN Reason: Insomnia Transmission Status: Pending to [facility] Hydroxyurea [Hydrea] 500 mg PO DAILY 11/06/18 [History] Spironolactone 50 mg PO BID 11/06/18 [History] Aspirin [Lo-Dose Aspirin EC] 81 mg PO DAILY 11/28/18 [History] Hydralazine HCl 50 mg PO TID 11/28/18 [History] Omeprazole [PriLOSEC] 20 mg PO BID 11/28/18 [History] cloNIDine HCl [CloNIDine HCl] 0.1 mg PO TID 11/29/18 [History] FLUoxetine HCl [Prozac] 20 mg PO DAILY #15 capsule 12/03/18 [Rx] traZODone [TraZODone] 50 mg PO HS PRN #15 tablet 12/03/18 [Rx] Allergy/AdvReac Type Severity Reaction Status Date / Time hydrochlorothiazide AdvReac See Verified 11/28/18 15:19 Comments lisinopril AdvReac See Verified 11/28/18 15:19 Comments Results Procedures and tests throughout hospitalization: Completed Lab Orders Category Date Time Status CMP [Comprehensive Metabolic Panel] Routine Lab 12/02/18 10:35 Completed Thyroid Stimulating Hormone Routine Lab 12/01/18 09:21 Completed Provider Date of admission: 11/29/18 17:04 Primary care physician: PCP NONE Discharging clinician: Carly Cruz Psychiatry Exam - Constitutional Vitals: Temp Pulse Resp BP Pulse Ox 97.6 F 56 18 119/75 99 12/02/18 21:00 12/02/18 21:00 12/02/18 21:00 12/02/18 21:00 12/02/18 21:00 General appearance: age & developmentally appropriate, well-groomed, well- nourished - Musculoskeletal Gait: normal Station: relaxed Strength & Tone: normal for patient - Psychiatric Patient Orientation: Yes Person, Yes Time, Yes Place, Yes Circumstance Level of alertness: Alert Behavior: calm, cooperative Psychomotor activity: Normal Eye Contact: Maintains Eye Contact Mood Description: Euthymic/stable Patient description of mood: good Affect description: congruent with mood, full range Speech Volume: Normal Speech pattern: normal rate, normal rhythm, normal tone, fluent, spontaneous Language & Vocabulary: consistent with education Thought Process: Linear, Goal Oriented Thought Content: No Suicidal ideation, No Homicidal ideation, No Overt delusions Perceptual Disturbances: No Auditory hallucinations, No Visual hallucinations Attention Span Ability: Capable of Focused Attention Memory Description: Grossly Intact Patient Reliability: Reliable Historian Fund of knowledge: Yes abstraction ability, Yes aware of current events Intelligence Estimate: Average Judgment: Good Insight: Full Hospital Course Hospital course: Ms. Curiel is a 43 year old female who was admitted for depression. She was started on Prozac. Her stepdaughter was contacted to remove guns from the home. Patient was educated of diagnosis and the risk-benefit side effects of this alternative treatment options and was monitored for responsiveness and side effects. Mood anxiety sleep and appetite interest improved as did future orientation. Self-harm thoughts subsided, thinking cleared, psychosis resolved, and mood stabilized. Patient was able to attend both individual and group therapy sessions as well as meet with the psychiatrist daily and urged to discuss any medication or treatment issues or other concerns. The patient was educated primarily by verbal means about their diagnosis and manifestations in their life. The option for treatment including group and individual therapy programming was offered to the patient in addition to the use of medications with all their potential risks, benefits, and side effects as well as the risks of not taking medication and non-adhereance were discussed with the patient at length. The patient was given the opportunity to ask questions and was noted to participate in the treatment in the planning process. The patient felt ready and eager to be discharged from the inpatient psychiatric unit to continue on with treatment as an outpatient. The patient agreed that is they were safe for this disposition. The patient was considered to be able to participate in informed consent and decision making with respect to medical, legal, and financial issues of the time of discharge. At the time of discharge the patient adamantly denied any concerns for lethality including suicidal or homicidal thoughts ideations or plans and was future oriented toward ongoing mental health care, medical follow-up and sobriety. Time spent discussing smoking cessation with patient: 3 to 10 minutes Does patient wish to continue nicotine replacement upon disc: No - Time Spent with Patient Total time spent providing and/or coordinating discharge services: 20 Less than 30 minutes Specific discharge activities: Interval history reviewed. Available labs reviewed . Psychotherapy provided. Patient had an opportunity to ask questions and address concerns. Patient was in agreement with the treatment plan. The risks benefits and side effects of medications were discussed with the patient, including alternatives and treatment. The patient was educated on the abstaining from any alcohol or illicit substances, following up with all scheduled appointments, and taking all medications as prescribed. Assessment and Plan - Patient/Caregiver Discharge Instructions Activity: resume usual activities as tolerated Diet: regular diet Additional Instructions: Continue current medications. Follow up with outpatient mental health. Encourage continued therapy in a group or individual setting. The patient was discharged to home. - Follow up Plan Follow up with: [facility] [Outside] (You have an appointment with Dr. Valerio on ) Functional capacity at discharge: independent ambulation Overall status at discharge: Stable Disposition: Home, Self-Care Quality - Multiple Antipsychotics Patient discharged on 2 or more antipsychotic medications: No Procedures - Procedures Procedures: Medication Management, Crisis Stabilization, Supportive Therapy, Group Therapy, Psychoeducational Therapy
[2018-12-03 09:35] VITALS: BP 122/79
[2018-12-03] MEDS ORDERED: FLU Vac QV 19-20 (6Month+)/PF 0.5 ML SYRINGE IM STA (14:47)
== END 2018-12-03 16:20 | disposition home or self-care (01) | DRG 885 ==
LOC: SUATTDRO 17:04 → 1ANU 17:04
PROVIDERS: ADMIT Psychiatry & Neurology Psychiatry; ATTEND Psychiatry & Neurology Psychiatry

== ENCOUNTER 2019-07-23 12:46 | Observation (INO) ==
[2019-07-23] MEDS ORDERED: Ondansetron 4 MG/2 ML VIAL IVP PRN (15:33)
[2019-07-23] MEDS ORDERED: Naloxone 0.4 MG/ML INJ IVP PRN (15:33)
[2019-07-23] MEDS ORDERED: Nitroglycerin 0.4 MG TAB.SUBL SL PRN (15:37)
[2019-07-23] MEDS ORDERED: 0.9 % Sodium Chloride 1,000 ML IVC SCH (15:45)
[2019-07-23] MEDS: niCARdipine 20 MG/200 ML MLS IVC SCH (15:50)
[2019-07-23] MEDS: carvediloL 6.25 MG TABLET PO SCH (16:55)
[2019-07-23] MEDS: Acetaminophen 325 MG TABLET PO PRN (16:55)
[2019-07-23] MEDS: *HR* Heparin 5,000 UNIT/ML VIAL SQ SCH (16:56)
[2019-07-23] MEDS: hydrALAZINE 25 MG TABLET PO SCH (20:47)
[2019-07-24 01:44] LABS: Basophils % 0.5 %; Eosinophils # 0.1 K/mcL (0.0-0.6); Eosinophils % 1.1 %; Hemoglobin 11.3 g/dL (11.5-15.4); Immature Granulocytes % 0.5 % (0-4); Lymphocytes # 1.3 K/mcL (0.6-4.6); Lymphocytes % 19.4 %; Mean Corpuscular HGB Conc 32.3 g/dL (31.6-35.5); Mean Corpuscular Hemoglobin 35.2 pg (28.0-33.3); Mean Platelet Volume 9.2 fL (9.4-12.4); Monocytes # 0.3 K/mcL (0.0-1.3); Monocytes % 5.2 %; Neutrophils # 4.8 K/mcL (1.6-8.9); Platelet Count 676 K/mcL (140-400); Red Blood Count 3.21 M/mcL (3.82-4.97); Red Cell Distribution Width 13.1 % (11.5-14.5); Segmented Neutrophils % 73.3 %; White Blood Count 6.6 K/mcL (4.3-11.1)
[2019-07-24 02:03] LABS: Calcium 8.4 mg/dL (8.6-10.3); Potassium 3.5 mEq/L (3.5-5.1)
[2019-07-24] MEDS: niCARdipine 20 MG/200 ML MLS IVC SCH (04:56)
[2019-07-24] MEDS: *HR* Heparin 5,000 UNIT/ML VIAL SQ SCH ×2 (05:05→16:56)
[2019-07-24] MEDS ORDERED: CloNIDine Patch 0.1 MG PATCH (WEEKLY) TD SCH (08:00)
[2019-07-24] MEDS: carvediloL 6.25 MG TABLET PO SCH (09:16)
[2019-07-24] MEDS: Aspirin Enteric Coated 81 MG Tablet PO SCH (09:16)
[2019-07-24] MEDS: hydrALAZINE 25 MG TABLET PO SCH ×3 (09:17→20:41)
[2019-07-24] MEDS: Hydroxyurea 500 MG CAPSULE PO SCH (09:17)
[2019-07-24] MEDS: Acetaminophen 325 MG TABLET PO PRN (16:56)
[2019-07-24] MEDS: carvediloL 25 MG TABLET PO SCH (16:56)
[2019-07-24] MEDS ORDERED: carvediloL 25 MG TABLET PO SCH (17:00)
[2019-07-25] MEDS: niCARdipine 20 MG/200 ML MLS IVC SCH ×2 (00:19→00:20)
[2019-07-25] MEDS ORDERED: cloNIDine HCL 0.1 MG TABLET PO ONE (01:28)
[2019-07-25] MEDS: *HR* Heparin 5,000 UNIT/ML VIAL SQ SCH (06:04)
[2019-07-25] MEDS ORDERED: CloNIDine Patch 0.2 MG PATCH (WEEKLY) TD SCH (09:15)
[2019-07-25] MEDS: Hydroxyurea 500 MG CAPSULE PO SCH (09:30)
[2019-07-25] MEDS: Aspirin Enteric Coated 81 MG Tablet PO SCH (09:30)
[2019-07-25] MEDS: hydrALAZINE 25 MG TABLET PO SCH ×2 (09:31→13:05)
[2019-07-25] MEDS: carvediloL 25 MG TABLET PO SCH (09:31)
[2019-07-25 09:53] LABS: BUN/Creatinine Ratio 21 (6-26); Blood Urea Nitrogen 24 mg/dL (6-20); Calcium 9.3 mg/dL (8.6-10.3); Carbon Dioxide 19 mEq/L (23-29); Chloride 107 mEq/L (98-107); Glucose 145 mg/dL (70-105); Magnesium 2.1 mg/dL (1.6-2.6); Osmolality,Calculated 287 (280-300); Phosphorous 2.8 mg/dL (2.7-4.5); Potassium 4.3 mEq/L (3.5-5.1); Sodium 135 mEq/L (136-145); eGFR For African Americans > 60 (> 60); eGFR For Non-African Americans 53 (> 60)
[2019-07-25 10:09] LABS: Troponin I < 0.03 ng/mL (< 0.04)
[2019-07-25] MEDS ORDERED: *HR* Metoprolol 5 MG/5 ML VIAL IVP ONE (11:31)
[2019-07-25 13:51] VITALS: BP 160/85
== END 2019-07-25 14:52 | disposition home or self-care (01) ==
LOC: 3NENU → SUATTDRO 15:25 → 3BNU 07-24 13:49
PROVIDERS: ADMIT Internal Medicine; ATTEND Internal Medicine

== ENCOUNTER 2019-11-05 17:35 | Inpatient (IN) ==
[2019-11-05] MEDS ORDERED: Naloxone 0.4 MG/ML INJ IVP PRN (19:48)
[2019-11-05] MEDS ORDERED: Ondansetron 4 MG/2 ML VIAL IVP PRN (20:29)
[2019-11-05] MEDS ORDERED: Aspirin 325 MG TABLET PO ONE (20:56)
[2019-11-05] MEDS ORDERED: Pantoprazole 40 MG VIAL IVP ONE (21:12)
[2019-11-05] MEDS: Acetaminophen 325 MG TABLET PO PRN (21:21)
[2019-11-05] MEDS: niCARdipine 20 MG/200 ML MLS IVC SCH (21:41)
[2019-11-06] MEDS: niCARdipine 20 MG/200 ML MLS IVC SCH ×5 (03:06→20:03)
[2019-11-06 04:28] LABS: Basophils % 0.6 %; Eosinophils # 0.1 K/mcL (0.0-0.6); Eosinophils % 1.1 %; Hematocrit 30.3 % (35.3-44.9); Hemoglobin 9.5 g/dL (11.5-15.4); Immature Granulocytes % 0.1 % (0-4); Lymphocytes # 1.1 K/mcL (0.6-4.6); Lymphocytes % 15.5 %; Mean Corpuscular HGB Conc 31.4 g/dL (31.6-35.5); Mean Corpuscular Hemoglobin 30.9 pg (28.0-33.3); Mean Corpuscular Volume 98.7 fL (83.0-100.0); Mean Platelet Volume 9.9 fL (9.4-12.4); Monocytes # 0.4 K/mcL (0.0-1.3); Monocytes % 4.9 %; Neutrophils # 5.6 K/mcL (1.6-8.9); Platelet Count 458 K/mcL (140-400); Red Blood Count 3.07 M/mcL (3.82-4.97); Red Cell Distribution Width 15.6 % (11.5-14.5); Segmented Neutrophils % 77.8 %; White Blood Count 7.2 K/mcL (4.3-11.1)
[2019-11-06 04:45] LABS: Albumin 4.1 g/dL (3.5-5.7); Albumin/Globulin Ratio 1.6 (1.1-2.2); Bilirubin,Total 0.6 mg/dL (0.3-1.0); Calcium 9.1 mg/dL (8.6-10.3); Globulin 2.6 g/dL (2.4-3.5); Potassium 4.1 mEq/L (3.5-5.1); Total Protein 6.7 g/dL (6.4-8.9)
[2019-11-06 08:30] LABS: Bacteria,Urine Few per hpf (None-Few); Bilirubin,Urine Negative (Negative); Blood,Urine Negative (Negative); Clarity,Urine Turbid (Clear); Color,Urine Yellow (Yellow); Glucose,Urine (UA) Normal (Normal); Ketones,Urine 20 mg/dL (Negative); Leukocyte Esterase,Urine Moderate (Negative); Mucus,Urine Few per lpf (None-Few); Nitrite,Urine Positive (Negative); Protein,Urine Trace mg/dL (Neg-Trace); Protein/Creatinine Ratio,Urine 0.16 mg/mg (0.00-0.20); Specific Gravity,Urine 1.016 (1.010-1.025); Squamous Epithelial Cell,Urine Moderate per hpf (None-Few); Urobilinogen,Urine Normal (Normal); WBC,Urine 15-30 per hpf (0-3)
[2019-11-06] MEDS ORDERED: CloNIDine Patch 0.3 MG PATCH (WEEKLY) TD SCH (09:00)
[2019-11-06] MEDS: hydrALAZINE 25 MG TABLET PO SCH ×3 (10:05→20:08)
[2019-11-06] MEDS: Aspirin Enteric Coated 81 MG Tablet PO SCH (10:05)
[2019-11-06] MEDS: carvediloL 25 MG TABLET PO SCH ×2 (10:15→17:14)
[2019-11-06] MEDS: Acetaminophen 325 MG TABLET PO PRN (12:41)
[2019-11-06] MEDS: 0.9 % Sodium Chloride 1,000 ML IVC SCH (15:49)
[2019-11-06] MEDS ORDERED: carvediloL 25 MG TABLET PO SCH (17:00)
[2019-11-06] MEDS: *HR* Heparin 5,000 UNIT/ML VIAL SQ SCH (17:13)
[2019-11-07] MEDS: niCARdipine 20 MG/200 ML MLS IVC SCH ×2 (02:16→05:16)
[2019-11-07] MEDS: 0.9 % Sodium Chloride 1,000 ML IVC SCH (02:17)
[2019-11-07] MEDS: *HR* Heparin 5,000 UNIT/ML VIAL SQ SCH ×2 (05:08→16:42)
[2019-11-07 06:08] LABS: Basophils # 0.1 K/mcL (0.0-0.2); Basophils % 0.9 %; Eosinophils # 0.1 K/mcL (0.0-0.6); Eosinophils % 2.1 %; Hematocrit 30.8 % (35.3-44.9); Hemoglobin 9.4 g/dL (11.5-15.4); Immature Granulocytes % 0.2 % (0-4); Lymphocytes # 1.2 K/mcL (0.6-4.6); Lymphocytes % 21.6 %; Mean Corpuscular HGB Conc 30.5 g/dL (31.6-35.5); Mean Corpuscular Hemoglobin 30.2 pg (28.0-33.3); Mean Platelet Volume 9.8 fL (9.4-12.4); Monocytes # 0.3 K/mcL (0.0-1.3); Neutrophils # 3.7 K/mcL (1.6-8.9); Platelet Count 481 K/mcL (140-400); Red Blood Count 3.11 M/mcL (3.82-4.97); Red Cell Distribution Width 15.5 % (11.5-14.5); Segmented Neutrophils % 69.2 %; White Blood Count 5.3 K/mcL (4.3-11.1)
[2019-11-07 06:30] LABS: Calcium 9.6 mg/dL (8.6-10.3); Magnesium 1.9 mg/dL (1.6-2.6); Phosphorous 3.7 mg/dL (2.7-4.5); Potassium 4.1 mEq/L (3.5-5.1)
[2019-11-07] MEDS: Aspirin Enteric Coated 81 MG Tablet PO SCH (07:07)
[2019-11-07] MEDS: hydrALAZINE 25 MG TABLET PO SCH ×3 (07:07→20:24)
[2019-11-07] MEDS: carvediloL 25 MG TABLET PO SCH (07:08)
[2019-11-07] MEDS ORDERED: carvediloL 25 MG TABLET PO SCH ×2 (08:00→17:00)
[2019-11-07] MEDS ORDERED: carvediloL 6.25 MG TABLET PO ONE (08:30)
[2019-11-07] MEDS ORDERED: amLODIPine 5 MG TABLET PO SCH (09:00)
[2019-11-07] MEDS ORDERED: amLODIPine 5 MG TABLET PO ONE (16:17)
[2019-11-07] MEDS: cloNIDine HCL 0.1 MG TABLET PO SCH ×2 (16:41→20:24)
[2019-11-07] MEDS: Hydroxyurea 500 MG CAPSULE PO SCH (18:18)
[2019-11-08 02:54] LABS: Basophils % 0.7 %; Eosinophils # 0.1 K/mcL (0.0-0.6); Eosinophils % 2.3 %; Hematocrit 29.5 % (35.3-44.9); Hemoglobin 9.6 g/dL (11.5-15.4); Immature Granulocytes % 0.3 % (0-4); Lymphocytes # 1.3 K/mcL (0.6-4.6); Lymphocytes % 21.2 %; Mean Corpuscular HGB Conc 32.5 g/dL (31.6-35.5); Mean Corpuscular Hemoglobin 31.5 pg (28.0-33.3); Mean Corpuscular Volume 96.7 fL (83.0-100.0); Mean Platelet Volume 9.8 fL (9.4-12.4); Monocytes # 0.4 K/mcL (0.0-1.3); Monocytes % 6.7 %; Neutrophils # 4.1 K/mcL (1.6-8.9); Platelet Count 492 K/mcL (140-400); Red Blood Count 3.05 M/mcL (3.82-4.97); Red Cell Distribution Width 15.8 % (11.5-14.5); Segmented Neutrophils % 68.8 %
[2019-11-08 03:06] LABS: Calcium 10.1 mg/dL (8.6-10.3); Magnesium 1.7 mg/dL (1.6-2.6); Phosphorous 4.9 mg/dL (2.7-4.5); Potassium 4.3 mEq/L (3.5-5.1)
[2019-11-08] MEDS: *HR* Heparin 5,000 UNIT/ML VIAL SQ SCH (06:00)
[2019-11-08] MEDS: Hydroxyurea 500 MG CAPSULE PO SCH (08:53)
[2019-11-08] MEDS: cloNIDine HCL 0.1 MG TABLET PO SCH (08:53)
[2019-11-08] MEDS: Aspirin Enteric Coated 81 MG Tablet PO SCH (08:53)
[2019-11-08] MEDS: hydrALAZINE 25 MG TABLET PO SCH (08:53)
[2019-11-08] MEDS ORDERED: amLODIPine 5 MG TABLET PO SCH (09:00)
[2019-11-08] MEDS ORDERED: polyethylene glycoL 3350 17 GM POWD.PACK PO SCH (10:45)
[2019-11-08] MEDS ORDERED: amLODIPine 5 MG TABLET PO ONE (11:15)
[2019-11-08 13:08] VITALS: BP 141/76
== END 2019-11-08 13:15 | disposition home or self-care (01) | DRG 305 ==
LOC: 2ANU → ICNU 21:43
PROVIDERS: ADMIT Family Medicine; ATTEND Student in an Organized Health Care Education/Training Program

== ENCOUNTER 2020-08-17 13:38 | Inpatient (IN) ==
[2020-08-17] MEDS ORDERED: Naloxone 0.4 MG/ML INJ IVP PRN (15:48)
[2020-08-17] MEDS ORDERED: Cefepime HCl 2,000 MG in 0.9 % Sodium Chloride Mini Bag 100 ML IVPB SCH (16:00)
[2020-08-17 17:19] LABS: Calcium 9.2 mg/dL (8.6-10.3)
[2020-08-17] MEDS: Azithromycin 500 MG in 0.9 % Sodium Chloride 250 ML IVPB SCH (17:34)
[2020-08-17] MEDS: Cefepime HCl 2,000 MG in Water for inj. (sterile) 20 ML IVP SCH (17:36)
[2020-08-17] MEDS: cloNIDine HCL 0.1 MG TABLET PO SCH ×2 (17:37→20:18)
[2020-08-17] MEDS ORDERED: *HR* Heparin 5,000 UNIT/ML VIAL SQ SCH (18:00)
[2020-08-17] MEDS ORDERED: Perflutren Lipid Microsphere 1.3 ML in 0.9 % Sodium Chloride 8.7 ML IVP PRN (18:03)
[2020-08-17] MEDS: hydrALAZINE 25 MG TABLET PO SCH (20:18)
[2020-08-17] MEDS ORDERED: Sodium Bicarbonate 150 MEQ in Water for inj. (sterile) 1,000 ML IVC SCH (22:15)
[2020-08-17 23:18] LABS: Bilirubin,Urine Negative (Negative); Blood,Urine Negative (Negative); Clarity,Urine Clear (Clear); Color,Urine Light-Yellow (Yellow); Glucose,Urine (UA) Normal (Normal); Ketones,Urine Negative (Negative); Leukocyte Esterase,Urine Negative (Negative); Nitrite,Urine Negative (Negative); Protein,Urine Negative (Neg-Trace); Specific Gravity,Urine 1.015 (1.010-1.025); Urobilinogen,Urine Normal (Normal)
[2020-08-17 23:41] LABS: Sodium, Urine 106.1 mEq/L
[2020-08-18 02:54] LABS: Basophils % 0.2 %; Eosinophils # 0.1 K/mcL (0.0-0.6); Eosinophils % 0.8 %; Hematocrit 26.6 % (35.3-44.9); Hemoglobin 8.8 g/dL (11.5-15.4); Lymphocytes # 0.5 K/mcL (0.6-4.6); Lymphocytes % 5.9 %; Mean Corpuscular HGB Conc 33.1 g/dL (31.6-35.5); Mean Corpuscular Hemoglobin 39.3 pg (28.0-33.3); Mean Corpuscular Volume 118.8 fL (83.0-100.0); Mean Platelet Volume 8.9 fL (9.4-12.4); Monocytes # 0.2 K/mcL (0.0-1.3); Neutrophils # 8.1 K/mcL (1.6-8.9); Nucleated Red Blood Cells 0.2 /100 WBC (0); Platelet Count 266 K/mcL (140-400); Red Blood Count 2.24 M/mcL (3.82-4.97); Red Cell Distribution Width 14.1 % (11.5-14.5); Segmented Neutrophils % 90.1 %
[2020-08-18 03:08] LABS: Calcium 8.7 mg/dL (8.6-10.3); Magnesium 1.9 mg/dL (1.6-2.6)
[2020-08-18 03:27] LABS: Macrocytosis Present (Not Present); Platelet Estimate Normal (Normal)
[2020-08-18] MEDS ORDERED: *HR* Heparin 5,000 UNIT/ML VIAL IVP PRN (03:40)
[2020-08-18] MEDS ORDERED: *HR* Heparin 5,000 UNIT/ML VIAL IVP ONE (03:40)
[2020-08-18] MEDS ORDERED: *HR* Labetalol 20 MG/4 ML SYRINGE IVP ONE ×2 (03:45→04:00)
[2020-08-18] MEDS: Cefepime HCl 2,000 MG in Water for inj. (sterile) 20 ML IVP SCH ×2 (04:13→15:55)
[2020-08-18] MEDS: Heparin 25,000UNIT/250ML 1/2NS 25,000 UNIT/250 ML IV.SOLN IVC SCH (04:14)
[2020-08-18] MEDS ORDERED: *HR* LORazepam 2 MG/ML VIAL IVP ONE (05:12)
[2020-08-18] MEDS ORDERED: Furosemide 40 MG/4 ML VIAL IVP SCH (05:15)
[2020-08-18 05:46] LABS: Hematocrit 28.2 % (35.3-44.9); Hemoglobin 9.4 g/dL (11.5-15.4); Mean Corpuscular HGB Conc 33.3 g/dL (31.6-35.5); Mean Corpuscular Hemoglobin 39.2 pg (28.0-33.3); Mean Corpuscular Volume 117.5 fL (83.0-100.0); Platelet Count 284 K/mcL (140-400); Red Cell Distribution Width 13.9 % (11.5-14.5); White Blood Count 10.4 K/mcL (4.3-11.1)
[2020-08-18 05:52] LABS: INR 1.4; Prothrombin Time 16.3 Seconds (9.4-12.1)
[2020-08-18 05:53] LABS: Heparin anti-factor XA UFH 0.72 IU/mL (0.30-0.70)
[2020-08-18 06:06] LABS: % Iron Saturation 10 % (15-50); Iron 26 mcg/dL (50-170); Transferrin 184 mg/dL (203-362)
[2020-08-18 06:22] LABS: Ferritin 102 ng/mL (10-120)
[2020-08-18] MEDS: Benzonatate 100 MG CAPSULE PO PRN ×3 (06:59→20:53)
[2020-08-18] MEDS: Aspirin Enteric Coated 81 MG Tablet PO SCH (08:21)
[2020-08-18] MEDS: cloNIDine HCL 0.1 MG TABLET PO SCH ×3 (08:21→20:16)
[2020-08-18] MEDS: hydrALAZINE 25 MG TABLET PO SCH ×3 (08:21→20:16)
[2020-08-18 08:40] LABS: Folate 13.9 ng/mL (3.0-16.0); Vitamin B12 > 1500 pg/mL (250-1100)
[2020-08-18] MEDS: NIFEdipine XL (24 HR) 30 MG TAB.ER.24 PO SCH ×2 (12:57→20:17)
[2020-08-18] MEDS: Azithromycin 500 MG in 0.9 % Sodium Chloride 250 ML IVPB SCH (15:03)
[2020-08-18] MEDS: *HR* Heparin 5,000 UNIT/ML VIAL IVP PRN (15:04)
[2020-08-18] MEDS: Acetaminophen 325 MG TABLET PO PRN ×2 (15:54→20:53)
[2020-08-18] MEDS ORDERED: Furosemide 40 MG/4 ML VIAL IVP ONE (17:00)
[2020-08-19] MEDS: Heparin 25,000UNIT/250ML 1/2NS 25,000 UNIT/250 ML IV.SOLN IVC SCH ×2 (02:27→21:59)
[2020-08-19] MEDS: Cefepime HCl 2,000 MG in Water for inj. (sterile) 20 ML IVP SCH ×2 (05:00→15:24)
[2020-08-19] MEDS: Ondansetron 4 MG/2 ML VIAL IVP PRN ×2 (05:12→19:40)
[2020-08-19] MEDS: GuaiFENesin Liq 200 MG/10 ML UDC PO PRN ×2 (05:12→18:47)
[2020-08-19 06:02] LABS: Basophils % 0.1 %; Eosinophils # 0.1 K/mcL (0.0-0.6); Eosinophils % 1.1 %; Hemoglobin 8.7 g/dL (11.5-15.4); Lymphocytes # 0.5 K/mcL (0.6-4.6); Lymphocytes % 5.7 %; Mean Corpuscular HGB Conc 34.8 g/dL (31.6-35.5); Mean Corpuscular Hemoglobin 39.7 pg (28.0-33.3); Mean Corpuscular Volume 114.2 fL (83.0-100.0); Mean Platelet Volume 9.4 fL (9.4-12.4); Monocytes # 0.3 K/mcL (0.0-1.3); Monocytes % 3.3 %; Neutrophils # 7.3 K/mcL (1.6-8.9); Platelet Count 240 K/mcL (140-400); Red Blood Count 2.19 M/mcL (3.82-4.97); Red Cell Distribution Width 13.4 % (11.5-14.5); Segmented Neutrophils % 88.8 %; White Blood Count 8.2 K/mcL (4.3-11.1)
[2020-08-19] MEDS: *HR* Heparin 5,000 UNIT/ML VIAL IVP PRN ×2 (06:15→15:25)
[2020-08-19 06:22] LABS: Calcium 8.7 mg/dL (8.6-10.3); Potassium 3.7 mEq/L (3.5-5.1)
[2020-08-19] MEDS: cloNIDine HCL 0.1 MG TABLET PO SCH ×3 (07:43→19:33)
[2020-08-19] MEDS: hydrALAZINE 25 MG TABLET PO SCH ×3 (07:43→19:33)
[2020-08-19] MEDS: Aspirin Enteric Coated 81 MG Tablet PO SCH (07:43)
[2020-08-19] MEDS: NIFEdipine XL (24 HR) 30 MG TAB.ER.24 PO SCH ×2 (07:43→19:33)
[2020-08-19] MEDS: Acetaminophen 325 MG TABLET PO PRN (11:50)
[2020-08-19] MEDS: Azithromycin 500 MG in 0.9 % Sodium Chloride 250 ML IVPB SCH (15:25)
[2020-08-20] MEDS: Cefepime HCl 2,000 MG in Water for inj. (sterile) 20 ML IVP SCH ×2 (04:20→16:20)
[2020-08-20 04:45] LABS: Basophils % 0.1 %; Eosinophils # 0.1 K/mcL (0.0-0.6); Eosinophils % 1.3 %; Hematocrit 23.3 % (35.3-44.9); Hemoglobin 7.7 g/dL (11.5-15.4); Immature Granulocytes % 0.5 % (0-4); Lymphocytes # 0.5 K/mcL (0.6-4.6); Lymphocytes % 5.5 %; Mean Corpuscular Hemoglobin 38.3 pg (28.0-33.3); Mean Corpuscular Volume 115.9 fL (83.0-100.0); Mean Platelet Volume 9.2 fL (9.4-12.4); Monocytes # 0.2 K/mcL (0.0-1.3); Monocytes % 2.1 %; Neutrophils # 8.5 K/mcL (1.6-8.9); Nucleated Red Blood Cells 0.2 /100 WBC (0); Platelet Count 257 K/mcL (140-400); Red Blood Count 2.01 M/mcL (3.82-4.97); Red Cell Distribution Width 13.4 % (11.5-14.5); Segmented Neutrophils % 90.5 %; White Blood Count 9.4 K/mcL (4.3-11.1)
[2020-08-20 04:59] LABS: Calcium 8.5 mg/dL (8.6-10.3); Potassium 3.9 mEq/L (3.5-5.1)
[2020-08-20 05:34] LABS: Anisocytosis 1+ (Not Present); Macrocytosis Present (Not Present); Platelet Estimate Normal (Normal)
[2020-08-20] MEDS: hydrALAZINE 25 MG TABLET PO SCH ×3 (08:18→19:57)
[2020-08-20] MEDS: cloNIDine HCL 0.1 MG TABLET PO SCH ×3 (08:18→19:58)
[2020-08-20] MEDS: Aspirin Enteric Coated 81 MG Tablet PO SCH (08:18)
[2020-08-20] MEDS: NIFEdipine XL (24 HR) 30 MG TAB.ER.24 PO SCH ×2 (08:18→19:58)
[2020-08-20] MEDS: Azithromycin 500 MG in 0.9 % Sodium Chloride 250 ML IVPB SCH (16:21)
[2020-08-20] MEDS: Ondansetron 4 MG/2 ML VIAL IVP PRN (17:13)
[2020-08-20] MEDS: *HR* Heparin 5,000 UNIT/ML VIAL SQ SCH (17:13)
[2020-08-21] MEDS: Cefepime HCl 2,000 MG in Water for inj. (sterile) 20 ML IVP SCH (05:02)
[2020-08-21 05:50] LABS: Basophils % 0.2 %; Eosinophils # 0.2 K/mcL (0.0-0.6); Eosinophils % 1.9 %; Hematocrit 24.1 % (35.3-44.9); Hemoglobin 8.1 g/dL (11.5-15.4); Immature Granulocytes % 1.1 % (0-4); Lymphocytes # 0.6 K/mcL (0.6-4.6); Lymphocytes % 6.5 %; Mean Corpuscular HGB Conc 33.6 g/dL (31.6-35.5); Mean Corpuscular Hemoglobin 38.9 pg (28.0-33.3); Mean Corpuscular Volume 115.9 fL (83.0-100.0); Mean Platelet Volume 9.5 fL (9.4-12.4); Monocytes # 0.3 K/mcL (0.0-1.3); Monocytes % 3.5 %; Platelet Count 299 K/mcL (140-400); Red Blood Count 2.08 M/mcL (3.82-4.97); Red Cell Distribution Width 13.5 % (11.5-14.5); Segmented Neutrophils % 86.8 %; White Blood Count 8.6 K/mcL (4.3-11.1)
[2020-08-21 05:57] LABS: Neutrophils # 7.5 K/mcL (1.6-8.9)
[2020-08-21 06:08] LABS: Calcium 9.2 mg/dL (8.6-10.3); Potassium 3.8 mEq/L (3.5-5.1)
[2020-08-21] MEDS: *HR* Heparin 5,000 UNIT/ML VIAL SQ SCH ×2 (06:11→17:15)
[2020-08-21 06:20] LABS: Macrocytosis Present (Not Present); Platelet Estimate Normal (Normal)
[2020-08-21] MEDS: cloNIDine HCL 0.1 MG TABLET PO SCH ×3 (08:10→20:03)
[2020-08-21] MEDS: hydrALAZINE 25 MG TABLET PO SCH ×3 (08:10→20:03)
[2020-08-21] MEDS: Aspirin Enteric Coated 81 MG Tablet PO SCH (08:12)
[2020-08-21] MEDS: NIFEdipine XL (24 HR) 30 MG TAB.ER.24 PO SCH (08:15)
[2020-08-21] MEDS: Ondansetron 4 MG/2 ML VIAL IVP PRN (08:54)
[2020-08-21] MEDS: Azithromycin 500 MG in 0.9 % Sodium Chloride 250 ML IVPB SCH (15:55)
[2020-08-21] MEDS ORDERED: NIFEdipine XL (24 HR) 30 MG TAB.ER.24 PO ONE (16:04)
[2020-08-21] MEDS: cefTRIAXone 1,000 MG in Water for inj. (sterile) 10 ML IVP SCH (17:19)
[2020-08-22 03:01] LABS: Basophils % 0.4 %; Eosinophils # 0.2 K/mcL (0.0-0.6); Eosinophils % 2.4 %; Hematocrit 24.6 % (35.3-44.9); Hemoglobin 8.1 g/dL (11.5-15.4); Immature Granulocytes % 1.7 % (0-4); Lymphocytes # 0.7 K/mcL (0.6-4.6); Lymphocytes % 8.1 %; Mean Corpuscular HGB Conc 32.9 g/dL (31.6-35.5); Mean Corpuscular Hemoglobin 38.2 pg (28.0-33.3); Mean Platelet Volume 9.7 fL (9.4-12.4); Monocytes # 0.4 K/mcL (0.0-1.3); Monocytes % 4.9 %; Neutrophils # 6.9 K/mcL (1.6-8.9); Nucleated Red Blood Cells 0.5 /100 WBC (0); Platelet Count 343 K/mcL (140-400); Red Blood Count 2.12 M/mcL (3.82-4.97); Red Cell Distribution Width 13.8 % (11.5-14.5); Segmented Neutrophils % 82.5 %; White Blood Count 8.4 K/mcL (4.3-11.1)
[2020-08-22 03:13] LABS: Calcium 9.4 mg/dL (8.6-10.3); Potassium 3.8 mEq/L (3.5-5.1)
[2020-08-22 03:34] LABS: Anisocytosis 1+ (Not Present); Macrocytosis Present (Not Present); Platelet Estimate Normal (Normal)
[2020-08-22] MEDS: *HR* Heparin 5,000 UNIT/ML VIAL SQ SCH ×2 (05:38→18:24)
[2020-08-22] MEDS: hydrALAZINE 25 MG TABLET PO SCH ×3 (08:39→21:36)
[2020-08-22] MEDS: NIFEdipine XL (24 HR) 30 MG TAB.ER.24 PO SCH (08:39)
[2020-08-22] MEDS: cloNIDine HCL 0.1 MG TABLET PO SCH ×3 (08:40→21:36)
[2020-08-22] MEDS: Aspirin Enteric Coated 81 MG Tablet PO SCH (08:40)
[2020-08-22] MEDS: cefTRIAXone 1,000 MG in Water for inj. (sterile) 10 ML IVP SCH (19:31)
[2020-08-23 03:22] LABS: Basophils % 0.3 %; Eosinophils # 0.2 K/mcL (0.0-0.6); Eosinophils % 2.9 %; Hematocrit 24.6 % (35.3-44.9); Hemoglobin 8.3 g/dL (11.5-15.4); Immature Granulocytes % 1.8 % (0-4); Lymphocytes # 1.1 K/mcL (0.6-4.6); Lymphocytes % 15.2 %; Mean Corpuscular HGB Conc 33.7 g/dL (31.6-35.5); Mean Corpuscular Hemoglobin 38.4 pg (28.0-33.3); Mean Corpuscular Volume 113.9 fL (83.0-100.0); Mean Platelet Volume 9.4 fL (9.4-12.4); Monocytes # 0.5 K/mcL (0.0-1.3); Monocytes % 6.9 %; Platelet Count 322 K/mcL (140-400); Red Blood Count 2.16 M/mcL (3.82-4.97); Red Cell Distribution Width 13.6 % (11.5-14.5); Segmented Neutrophils % 72.9 %; White Blood Count 7.2 K/mcL (4.3-11.1)
[2020-08-23 03:26] LABS: Neutrophils # 5.3 K/mcL (1.6-8.9)
[2020-08-23 03:42] LABS: Calcium 9.1 mg/dL (8.6-10.3); Magnesium 2.1 mg/dL (1.6-2.6); Phosphorous 2.6 mg/dL (2.7-4.5); Potassium 3.9 mEq/L (3.5-5.1)
[2020-08-23 03:45] LABS: Platelet Estimate Normal (Normal); Polychromasia 1+ (Not Present)
[2020-08-23] MEDS: *HR* Heparin 5,000 UNIT/ML VIAL SQ SCH (05:15)
[2020-08-23] MEDS: hydrALAZINE 25 MG TABLET PO SCH (07:42)
[2020-08-23] MEDS: Aspirin Enteric Coated 81 MG Tablet PO SCH (07:42)
[2020-08-23] MEDS: cloNIDine HCL 0.1 MG TABLET PO SCH (07:43)
[2020-08-23] MEDS: NIFEdipine XL (24 HR) 30 MG TAB.ER.24 PO SCH (07:43)
[2020-08-23 12:30] VITALS: BP 178/105
== END 2020-08-23 14:12 | disposition home or self-care (01) | DRG 291 ==
LOC: 3ANU → SUATTDRO 17:44 → 2NENU 08-18 07:55
PROVIDERS: ADMIT Internal Medicine; ATTEND Pharmacist